=== PATIENT | male | born 1970 | race Caucasian/White ===

== ENCOUNTER → 2018-01-24 10:02 | Outpatient (CLI) | payer OTHER, SELFPAY ==
[2018-01-24 12:17] LABS: Absolute Lymphocyte Count 1.35 X10^3/ul (0.83-4.51); Absolute Neutrophil Count 4.7 X10^3/uL (2.0-7.7); Basophil# 0.02 X10^3/uL; Basophil% 0.3 % (0-1); Eosinophil# 0.16 X10^3/uL; Eosinophils% 2.3 % (0-5); Hematocrit 43.4 % (40-54); Hemoglobin 15.3 g/dl (13.0-16.5); Lymphocyte # 1.35 X10^3/ul (4.0); Lymphocyte % 19.8 % (19-41); Mean Corp Hgb Conc 35.3 g/gl (32-36); Mean Corpuscular Hgb 30.9 pg (27.0-32.0); Mean Corpuscular Volume 87.7 fL (80-94); Mean Platelet Vol. 9.4 fl (6.2-12.0); Monocyte% 8.8 % (0-10); Neutrophil # 4.67 X10^3/uL (2.7-7.7); Neutrophil % 68.5 % (47-70); Platelet Count 237 K/mm3 (150-450); Red Blood Count 4.95 M/mm3 (4.6-6.2); White Blood Count 6.8 K/mm3 (4.4-11.0)
[2018-01-24 12:20] LABS: POSITIVE COUNT NO; POSITIVE DIFFERENTIAL NO; POSITIVE MORPHOLOGY NO
[2018-01-24 12:28] LABS: ALB/GLOB Ratio 1.1 RATIO (0.9-2.4); AST(SGOT) 50 U/L (15-37); Alanine Aminotransfer ALT/SGPT 105 U/L (16-61); Albumin, Serum 3.6 g/dL (3.2-5.0); Alkaline Phosphatase 62 U/L (45-117); Anion Gap 9 (5-15); BUN 14 mg/dL (7-18); BUN/Creat Ratio 20.3 RATIO (10-20); Calcium,Total 8.6 mg/dL (8.5-10.1); Chloride 107 mmol/L (98-107); Cholesterol 148 mg/dL (200); Creatinine, Serum 0.69 mg/dL (0.70-1.30); EST Glomerular Filtration Rate 130 mL/min (>60); Est Glom Filt Rate - Afr Amer 158 mL/min (>60); Globulin 3.2 g/dL (2.2-4.2); Glucose 111 mg/dL (74-106); High Density Lipoprotein 34 mg/dL; Potassium 3.2 mmol/L (3.5-5.1); Protein, Total 6.8 g/dL (6.4-8.2); Sodium Level 141 mmol/L (136-145); Triglycerides 186 mg/dL; Very Low Density Lipoprotein 37 mg/dL (5-40)
[2018-01-24 12:29] LABS: Hemoglobin A1c 5.8 % (4.2-6.3)
== END ==
PROVIDERS: Visit Provider Family Medicine
DX: Z00.00 Encounter for general adult medical examination without abnormal findings (principal); R35.8 Other polyuria; H53.2 Diplopia; R73.01 Impaired fasting glucose
CPT/HCPCS: 36415; 80053; 80061; 83036; 85025

== ENCOUNTER 2019-02-24 11:30 | Emergency (ER) | payer OTHER, SELFPAY ==
[2019-02-24 11:31] VITALS: BP 158/72; PULSE 84; RESP 16; TEMP 36.1; O2SAT 98; BMI 44.4
--- NOTE | 2019-02-24 11:46 | RAD_ITS ---
STUDY: X-RAY CHEST REASON FOR EXAM: Male, 48 years old. Blurred vision. Back pain and neck pain. TECHNIQUE: PA and lateral views of the chest. COMPARISON: Comparison is made with prior study dated January 27, 2015. FINDINGS: The lungs are clear and expanded. There is no demonstrated pleural abnormality. Normal size heart. Normal mediastinum and sweetie. Normal visualized pulmonary arteries. Normal visualized aortic arch and descending thoracic aorta. Normal visualized thoracic spine. Normal visualized ribs, clavicles, and shoulders. There is no demonstrated abnormality of the visualized soft tissue structures of the upper abdomen. RAD/Chest PA and Lateral IMPRESSION: Normal x-ray examination of the chest. Electronically Signed: Maicol Ford, at 12:41 EDT , Service support ,
--- NOTE | 2019-02-24 11:47 | CT_ITS ---
STUDY: CT BRAIN WITHOUT CONTRAST REASON FOR EXAM: Male, 48 years old. 2 day history of blurred vision. RADIATION DOSAGE (If Supplied By Facility): CTDIvol = ( 44.99 ) mGy, DLP = ( 796.11 ) mGycm TECHNIQUE: Transaxial CT imaging of the brain was performed without administration of intravenous contrast material. Individualized dose optimization techniques were used for this CT. COMPARISON: No relevant priors. FINDINGS: Normal soft tissue structures. Normal calvarium. Normal size ventricles and extra-axial spaces for the patient's age. Normal white matter tracts of the cerebral hemispheres. Normal basal ganglia and thalami. Normal brainstem. Normal cerebellum. There is no intracranial hemorrhage. There are no findings of an acute ischemic infarction. Partial opacification of the ethmoid sinuses bilaterally. Mucosal thickening of the frontal sinus. CT/Brain/Head without Contrast IMPRESSION: No acute adenopathy is seen. Partial opacification of the ethmoid sinuses and the frontal sinus. Electronically Signed: Maicol Ford, at 12:40 EDT , Service support ,
--- NOTE | 2019-02-24 11:50 | ED.VISSUMM ---
- ER Visit Summary Date of Service: 02/24/19 Chief Complaint: Multiple chief complaints History of Present Illness: The patient is a 48 M who comes emergency department today with multiple complaints. First is that beginning this morning he notices that his vision gets blurry whenever he stares at an object. No diplopia. No recent eye exam. No eye pain. No watering of the eyes. While he is not staring at an object his vision is fine. His second complaint is that he has diffuse neck pain that began 4 days ago after waking up. Denies any known trauma to it. Describes it as generalized soreness worse with movement. His next complaint is that he has had some urinary frequency and was having pains over his kidney area on both sides which concerned him because his significant other recently had a urinary tract infection. He states that he has a history of testicular cancer but did not have to do any chemotherapy or radiation as it had not spread. Physical Examination: Afebrile vital signs are stable Gen: Well-nourished well-developed Head: Normocephalic atraumatic Eyes: Perrl EOMI ENT: TMs clear no rhinorrhea moist mucous membranes Neck: Supple no lymphadenopathy no JVD diffuse tenderness to palpation across the neck musculature CVS: Regular rate rhythm no murmurs normal S1-S2 Respiratory: No distress clear to auscultation bilaterally chest nontender Abdomen: Soft nontender nondistended normal bowel sounds no masses Back: Nontender specifically no CVA tenderness. Extremity: Nontender no edema Skin: Normal color no rash Neuro: alert orientated ?3 CN II-XII intact normal strength sensation reflexes gait cerebellar Psych: Normal affect normal mood Test Results: Head CT showed no acute changes. Chest x-ray did not see any obvious metastasis. CBC chemistries showed a glucose of 111. Liver enzymes with an ALT of 91 AST 59. Urinalysis showed no infection or hematuria. Emergency Department Course and Treatment: At this point I believe 1 the patient has a degree of torticollis. He woke with symptoms of a sore neck and is continued for several days. His blurred vision I feel can be assessed by ophthalmology. Do not see any elevated pressures, the eye is not red, head CT is negative. The urine shows no evidence of infection. Patient is comfortable with follow-up with primary care and ophthalmology. Impression: 1. Torticollis 2. Blurred vision This note was generated with Miyaobabei dictation software. It may contain incorrect words, spelling, and punctuation that were not noted in review of the chart prior to signing ED Disposition - Plan for ED Patient: Disposition: Home or Assisted Living Instructions: Torticollis ([place]) Referrals: Sherif Spann DO [Primary Care Provider] - 1 Week Luis Chand MD [STAFF PHYSICIAN] - (for opthamology)
[2019-02-24 12:19] LABS: Bacteria 0 SEEN /hpf (None Seen); Mucous, Urine 0 SEEN /hpf (<or=2+); Red Blood Cells-Urine 0 SEEN /hpf (0-5)
[2019-02-24 12:27] LABS: Absolute Lymphocyte Count 1.63 X10^3/ul (0.83-4.51); Absolute Neutrophil Count 4.1 X10^3/uL (2.0-7.7); Basophil# 0.02 X10^3/uL; Basophil% 0.3 % (0-1); Eosinophil# 0.17 X10^3/uL; Eosinophils% 2.7 % (0-5); Hematocrit 42.9 % (40-54); Lymphocyte # 1.63 X10^3/ul (4.0); Lymphocyte % 25.5 % (19-41); Mean Corpuscular Hgb 30.5 pg (27.0-32.0); Mean Corpuscular Volume 87.4 fL (80-94); Mean Platelet Vol. 8.9 fl (6.2-12.0); Monocyte# 0.46 X10^3/uL; Monocyte% 7.2 % (0-10); Neutrophil % 64.1 % (47-70); Platelet Count 223 K/mm3 (150-450); RBC Distribution Width CV 13.3 % (11.6-14.6); RBC Distribution Width SD 42.3 fl (35.1-43.9); Red Blood Count 4.91 M/mm3 (4.6-6.2); White Blood Count 6.4 K/mm3 (4.4-11.0)
[2019-02-24 12:33] LABS: Color, Urine Yellow (Yellow); Glucose, Dipstick Normal (Normal); Ketone-Dipstick Negative (Negative); Leukocyte Esterase-Dipstick Negative /ul (Negative); Nitrite-Dipstick Negative (Negative); Occult Blood-Urine Negative /ul (Negative); Protein-Dipstick Negative (Negative); Specific Gravity, Urine 1.015 (1.002-1.030); Urine Bilirubin Dipstick Negative (Negative); Urine Clarity Clear (Clear); Urine Urobilinogen 1 mg/dl (Normal)
[2019-02-24 12:34] LABS: POSITIVE COUNT NO; POSITIVE DIFFERENTIAL NO; POSITIVE MORPHOLOGY NO
[2019-02-24 12:37] LABS: Squamous Epithelial Cells - UA 0-5 SEEN /hpf (0-5); White Blood Cells 0-5 SEEN /hpf (0-5)
[2019-02-24 13:18] LABS: ALB/GLOB Ratio 1.1 RATIO (0.9-2.4); AST(SGOT) 59 U/L (15-37); Alanine Aminotransfer ALT/SGPT 91 U/L (16-61); Albumin, Serum 3.7 g/dL (3.2-5.0); Alkaline Phosphatase 64 U/L (45-117); Anion Gap 4 (5-15); BUN 17 mg/dL (7-18); BUN/Creat Ratio 19.7 RATIO (10-20); Calcium,Total 8.8 mg/dL (8.5-10.1); Chloride 108 mmol/L (98-107); Creatinine, Serum 0.86 mg/dL (0.70-1.30); EST Glomerular Filtration Rate 100 mL/min (>60); Est Glom Filt Rate - Afr Amer 121 mL/min (>60); Estimated Creatinine Clearance 94.79 ml/min; Globulin 3.4 g/dL (2.2-4.2); Glucose 111 mg/dL (74-106); Potassium 3.8 mmol/L (3.5-5.1); Protein, Total 7.1 g/dL (6.4-8.2); Sodium Level 142 mmol/L (136-145)
[2019-02-24 14:23] VITALS: BP 132/74; PULSE 75; RESP 16; O2SAT 98
== END 2019-02-24 14:23 | disposition home or self-care (01) ==
PROVIDERS: Emergency Provider Emergency Medicine; Family Provider Family Medicine; PCP Family Medicine
DX: M43.6 Torticollis (principal); H53.8 Other visual disturbances; J45.909 Unspecified asthma, uncomplicated; K21.9 Gastro-esophageal reflux disease without esophagitis; Z85.47 Personal history of malignant neoplasm of testis
CPT/HCPCS: 70450; 71046; 80053; 81001; 85025; 99284

== ENCOUNTER → 2019-03-10 | Outpatient (CLI) | payer OTHER, SELFPAY ==
[2019-02-24 11:31] VITALS: BMI 44.4
--- NOTE | 2019-03-10 14:31 | RAD_ITS ---
STUDY: X-RAY - CERVICAL SPINE REASON FOR EXAM: Male, 48 years old. Neck pain. No known injury. TECHNIQUE: 7 view(s) of the cervical spine were obtained. COMPARISON: None FINDINGS: Normal anterior atlantoaxial articulation. Normal odontoid process. Normal cervical lordosis. Normal vertebral bodies and endplates. There is minimal intervertebral disc space narrowing at C6-7 with small osteophytes. There is no significant anterior bony neural foraminal encroachment. There is diffuse uncovertebral and facet sclerosis. There is ossification of the ligamentum nuchae. RAD/Cerv Spine 4 or 5 Views IMPRESSION: Mild cervical spondylosis with no other abnormality. Electronically Signed: Devon Mullins MD at 15:40 EDT , Service support ,
--- NOTE | 2019-03-10 14:35 | RAD_ITS ---
HISTORY: NO KNOWN INJURY. PAIN IN LOWER BACK. COMPARISON: CT scan of the abdomen and pelvis from January 27, 2015 FINDINGS: # of images incl. paperwork: 5 XR Spine Lumbar Min 4 Views: Superimposed over the inferior pole of the right renal fossa, at the level of the right L3 transverse process, there is a 6 mm density, likely representing a nonobstructing nephrolith. On the 2014 study, there was an inferior pole right renal nephrolith, but it was smaller. Lumbar vertebral bodies are normal in height. Lumbar disc spaces are well maintained. No acute lumbar spine fracture or subluxation. Some facet arthropathy is present at the L3-L4, L4-L5, and L5-S1 levels. RAD/L/S Spine Min 4 Views IMPRESSION: No acute lumbar spine fracture or subluxation. 6 mm density superimposed over the inferior pole the right kidney, likely representing enlargement to a nonobstructing nephrolith which was present within the right kidney on the January 27, 2015 scan. at 0436 Reported and signed by: Michael Decker MD Electronically Signed: Michael Decker MD at 4:35 EDT Tel , Service support ,
== END | disposition home or self-care (01) ==
LOC: MTRAD 14:27
PROVIDERS: Family Provider Family Medicine; PCP Family Medicine; Referring Provider Family Medicine; Visit Provider Family Medicine
DX: M54.2 Cervicalgia (principal); M54.5 Low back pain
CPT/HCPCS: 72050; 72110

== ENCOUNTER → 2020-04-27 17:44 | Outpatient (CLI) | payer OTHER, SELFPAY | PROVIDERS: PCP Family Medicine; Referring Provider Family Medicine; Visit Provider Family Medicine | DX: R05 Cough (principal); R50.9 Fever, unspecified; R06.00 Dyspnea, unspecified; Z20.828 Contact with and (suspected) exposure to other viral communicable diseases | CPT/HCPCS: 87635; 94799; G2023; U0003 ==

== ENCOUNTER → 2020-08-02 12:04 | Outpatient (CLI) | payer OTHER, SELFPAY | PROVIDERS: PCP Family Medicine; Referring Provider Family Medicine; Visit Provider Family Medicine | DX: Z20.828 Contact with and (suspected) exposure to other viral communicable diseases (principal) | CPT/HCPCS: 87635; C9803; U0003 ==

== ENCOUNTER → 2021-06-29 07:28 | Outpatient (CLI) | payer OTHER, SELFPAY | PROVIDERS: PCP Family Medicine; Visit Provider Family Medicine | DX: Z20.828 Contact with and (suspected) exposure to other viral communicable diseases (principal) | CPT/HCPCS: 87635; U0005; U0003 ==

== ENCOUNTER → 2021-07-06 12:51 | Outpatient (CLI) | payer OTHER, SELFPAY ==
--- NOTE | 2021-07-06 12:58 | RAD_ITS ---
STUDY: X-RAY CHEST REASON FOR EXAM: Male, 51 years old. COUGH / SOB / ASTHMA TECHNIQUE: PA and lateral views of the chest. COMPARISON: Comparison is made with prior study dated 02/24/2019. FINDINGS: Stable elevation of the right hemidiaphragm. There is no demonstrated pleural abnormality. Normal size heart. Normal mediastinum and sweetie. Normal visualized pulmonary arteries. Normal visualized aortic arch and descending thoracic aorta. There are mild degenerative changes of the visualized thoracic spine. Normal visualized ribs, clavicles, and shoulders. There is no demonstrated abnormality of the visualized soft tissue structures of the upper abdomen. RAD/Chest PA and Lateral IMPRESSION: No acute abnormality is seen. Electronically Signed: Maicol Ford MD at 13:24 EDT , Service support ,
== END ==
LOC: RAD 12:53
PROVIDERS: PCP Family Medicine; Referring Provider Family Medicine; Visit Provider Family Medicine
DX: R05 Cough (principal)
CPT/HCPCS: 71046

== ENCOUNTER → 2021-08-15 18:04 | Outpatient (CLI) | payer OTHER, SELFPAY | PROVIDERS: PCP Family Medicine; Visit Provider Family Medicine | DX: R30.0 Dysuria (principal) | CPT/HCPCS: 87086; 87088 ==

== ENCOUNTER → 2021-08-30 12:17 | Outpatient (CLI) | payer OTHER, SELFPAY ==
--- NOTE | 2021-08-30 12:19 | CT_ITS ---
STUDY: CT ABDOMEN AND PELVIS WITHOUT CONTRAST REASON FOR EXAM: Male, 51 years old. Flank pain RADIATION DOSAGE (If Supplied By Facility): CTDIvol = ( 22.40 ) mGy, DLP = ( 2166.67 ) mGycm TECHNIQUE: Transaxial images were obtained from the dome of the diaphragm to the symphysis pubis without oral contrast, and without intravenous contrast. Sagittal and coronal images were reconstructed. Individualized dose optimization techniques were used for this CT. COMPARISON: 2014 FINDINGS: Abnormal lucency in the left hemithorax suggesting pneumothorax. No acute rib fracture, there is a sclerotic lesion within the left seventh rib, unchanged from 2015. The visualized portions of the heart are within normal limits. There is decreased attenuation of the liver consistent with steatosis. Normal gallbladder and extrahepatic biliary system. There are multiple benign calcified granulomata of the spleen. Normal pancreas. Normal bilateral adrenal glands. Nonobstructing stones noted in the right kidney. No obstructive uropathy or suspicious solid renal lesion. Incidental note is made of a retroaortic left renal vein Normal visualized stomach. Normal small intestine. There are multiple colonic diverticula consistent with diverticulosis. There is non-visualization of the appendix. Normal abdominal aorta. Normal inferior vena cava. Normal retroperitoneum. Normal urinary bladder. Normal abdominal wall. Normal osseous structures. CT/Abdomen/Pelvis without Cont IMPRESSION: Left pneumothorax. The technician telecommunication systems at [facility] was informed of the findings and there will be an effort to locate the patient and informed the referring physician Fatty liver, no discrete lesion Nonobstructing right nephrolithiasis Colonic diverticulosis Sclerotic lesion in the left rib unchanged from 2014 Electronically Signed: Connor Vences MD at 17:34 EST , Service support ,
== END ==
LOC: CT 12:18
PROVIDERS: PCP Family Medicine; Referring Provider Family Medicine; Visit Provider Family Medicine
DX: R10.9 Unspecified abdominal pain (principal); R30.0 Dysuria
CPT/HCPCS: 74176

== ENCOUNTER → 2021-09-06 12:39 | Outpatient (CLI) | payer OTHER, SELFPAY ==
--- NOTE | 2021-09-06 12:41 | RAD_ITS ---
STUDY: X-RAY CHEST REASON FOR EXAM: Male, 51 years old. Chest pain/pressure TECHNIQUE: PA and lateral views of the chest. COMPARISON: 07/06/2021 FINDINGS: The lungs are clear and expanded. There is no demonstrated pleural abnormality. Normal size heart. Normal mediastinum and sweetie. Normal visualized pulmonary arteries. Normal visualized aortic arch and descending thoracic aorta. There are diffuse degenerative changes of the visualized thoracic spine. Normal visualized ribs, clavicles, and shoulders. There is no demonstrated abnormality of the visualized soft tissue structures of the upper abdomen. RAD/Chest PA and Lateral IMPRESSION: No acute findings, no interval change Electronically Signed: Connor Vences MD at 13:50 EST , Service support ,
== END ==
LOC: RAD 12:40
PROVIDERS: PCP Family Medicine; Referring Provider Family Medicine; Visit Provider Family Medicine
DX: J93.9 Pneumothorax, unspecified (principal)
CPT/HCPCS: 71046

== ENCOUNTER 2021-10-25 18:05 | Outpatient (CLI) | payer OTHER, SELFPAY | END 2021-10-25 23:59 | disposition short-term general hospital (02) | PROVIDERS: PCP Family Medicine; Visit Provider Family Medicine | DX: U07.1 COVID-19 (principal) | CPT/HCPCS: 87635; U0003; U0005 ==

== ENCOUNTER 2021-10-28 11:28 | Outpatient (CLI) | payer OTHER, SELFPAY ==
[2021-10-28] MEDS: 0.9% Saline Lock 10 ML Syringe IV (11:37)
[2021-10-28 11:38] VITALS: BP 159/93; PULSE 86; RESP 20; TEMP 36.5; O2SAT 99; BMI 43.5
[2021-10-28 12:51] VITALS: BP 131/71; PULSE 75; RESP 18; TEMP 36.6; O2SAT 98
[2021-10-28 13:48] VITALS: BP 152/78; PULSE 81; RESP 18; TEMP 36.4; O2SAT 99
== END 2021-10-28 23:59 | disposition home or self-care (01) ==
LOC: MS3OUT 11:29 → MS3 11:29
PROVIDERS: PCP Family Medicine; Referring Provider Nurse Practitioner Adult Health; Visit Provider Nurse Practitioner Adult Health
DX: U07.1 COVID-19 (principal)
CPT/HCPCS: J7050; M0245; Q0245; A4216

== ENCOUNTER → 2022-08-21 | Outpatient (CLI) | payer OTHER, SELFPAY ==
[2022-08-21 18:24] LABS: Absolute Neutrophil Count 4.7 X10^3/uL (2.0-7.7); Basophil# 0.03 X10^3/uL; Basophil% 0.4 % (0-1); Eosinophil# 0.13 X10^3/uL; Eosinophils% 1.9 % (0-5); Hematocrit 45.6 % (40-54); Hemoglobin 15.6 g/dL (13.0-16.5); Lymphocyte % 20.4 % (19-41); Mean Corp Hgb Conc 34.2 g/dL (32-36); Mean Corpuscular Volume 90.5 fL (80-94); Mean Platelet Vol. 9.2 fl (6.2-12.0); Monocyte# 0.53 X10^3/uL; Monocyte% 7.7 % (0-10); NRBC Flagged by Analyzer 0 % (0-5); Neutrophil # 4.72 X10^3/uL (2.7-7.7); Platelet Count 251 K/mm3 (150-450); RBC Distribution Width CV 12.9 % (11.6-14.6); RBC Distribution Width SD 42.4 fl (35.1-43.9); Red Blood Count 5.04 M/mm3 (4.6-6.2); White Blood Count 6.9 K/mm3 (4.4-11.0)
[2022-08-21 18:57] LABS: ALB/GLOB Ratio 1.1 RATIO (0.9-2.4); AST(SGOT) 46 U/L (15-37); Alanine Aminotransfer ALT/SGPT 102 U/L (16-61); Albumin, Serum 3.6 g/dL (3.2-5.0); Alkaline Phosphatase 65 U/L (45-117); Anion Gap 8 (5-15); BUN 15 mg/dL (7-18); Calcium,Total 8.8 mg/dL (8.5-10.1); Chloride 107 mmol/L (98-107); Cholesterol 138 mg/dL (200); Creatinine, Serum 0.75 mg/dL (0.70-1.30); EST Glomerular Filtration Rate 116 mL/min (>60); Est Glom Filt Rate - Afr Amer 140 mL/min (>60); Globulin 3.3 g/dL (2.2-4.2); Glucose 102 mg/dL (74-106); Hemoglobin A1c 5.8 % (3.8-5.6); High Density Lipoprotein 43 mg/dL; PSA,Total - Annual Screen 1.68 ng/mL (0.00-4.00); Potassium 3.9 mmol/L (3.5-5.1); Protein, Total 6.9 g/dL (6.4-8.2); Sodium Level 141 mmol/L (136-145); Triglycerides 55 mg/dL; Troponin-I HS 4 pg/mL (3.0-78.0); Very Low Density Lipoprotein 11 mg/dL (5-40)
== END | disposition home or self-care (01) ==
LOC: BFHLAB 15:30
PROVIDERS: PCP Family Medicine; Visit Provider Family Medicine
DX: Z00.00 Encounter for general adult medical examination without abnormal findings (principal); R07.9 Chest pain, unspecified; Z12.5 Encounter for screening for malignant neoplasm of prostate; R73.01 Impaired fasting glucose
CPT/HCPCS: 36415; 80053; 80061; 83036; 84153; 84484; 85025; G0103

== ENCOUNTER → 2022-09-14 | Outpatient (CLI) | payer OTHER, SELFPAY ==
--- NOTE | 2022-09-14 15:43 | STRESSREP_ITS ---
Stress Test Report Date: 09/14/2022 Procedure: Exercise tolerance test Indications: Chest pain Consent: Per the patient Procedure: The patient exercised on a Xavier protocol for 1 minute and 14 seconds achieving a peak heart rate of 141 bpm (83% predicted maximal heart rate) with a peak blood pressure 190/78 mmHg and a peak MET capacity of approximately 4.6 MET's. The baseline ECG demonstrated normal sinus rhythm. The peak exercise ECG demonstrated no significant ischemic changes. [There were no cardiac dysrhythmias pretest, during exercise, or recovery]. The functional capacity was considered significantly decreased for age. The patient had no complaint of chest discomfort during exercise or recovery. The examination was discontinued secondary to dyspnea and patient being unable to keep up with the treadmill. Impression: 1. Sensitivity of this test is decreased due to inability to reach 85% of maximal age-predicted heart rate 2. Stress test is negative for exercise-induced chest pain. 3. Stress test test is negative for exercise-induced EKG changes of ischemia. 4. Functional capacity is significantly decreased for age This note was generated with Gradible (formerly gradsavers)ation software. It may contain incorrect words, spelling, and punctuation that were not noted in checking the note before signing.
== END | disposition home or self-care (01) ==
LOC: CVS 12:19
PROVIDERS: PCP Family Medicine; Referring Provider Family Medicine; Visit Provider Family Medicine
DX: R07.9 Chest pain, unspecified (principal)
CPT/HCPCS: 93017

== ENCOUNTER 2024-05-09 10:19 | Emergency (ER) | payer OTHER, SELFPAY ==
[2024-05-09 10:20] VITALS: BP 199/90; PULSE 91; RESP 18; TEMP 35.9; O2SAT 97; BMI 42.6
--- NOTE | 2024-05-09 10:56 | EDS_ITS ---
HPI History of Present Illness Chief Complaint: GI Bleed [facility] Medical History no medical history Home Medications ?Medication ?Instructions ?Recorded ?Last Taken ?Type Omeprazole [Prilosec] 40 mg PO DAILY 01/18/15 Unknown History albuterol sulfate 90 mcg/actuation 1 puff inhalation Q6H PRN PRN Sob 01/18/15 Unknown History aerosol inhaler (Ventolin HFA) &/Or Wheezing albuterol sulfate 2.5 mg/0.5 mL 2.5 mg inhalation Q20M 10/28/21 Unknown History solution for nebulization dexamethasone 6 mg tablet 6 mg PO DAILY 10/28/21 Unknown History fluticasone 100 mcg-salmeterol 50 1 inh inhalation BID 10/28/21 Unknown History mcg/dose blistr powdr for inhalation (Advair Diskus) Allergy/AdvReac Type Severity Reaction Status Date / Time Penicillins Allergy Unknown Verified 05/09/24 10:19 Sulfa (Sulfonamide Allergy Unknown Verified 05/09/24 10:19 Antibiotics) Family History no significant family his Surgical History no surgical history Social History Smoking Status: Never smoker EXAM Physical Exam Const Vital Signs: 05/09/24 10:20 05/09/24 12:41 Temperature 96.7 F L Temperature Source Temporal Pulse Rate 91 Respiratory Rate 18 Blood Pressure 199/90 H 160/68 H Blood Pressure Mean 126 98 Pulse Ox 97 Oxygen Delivery Method Room Air MDM MDM MDM Narrative Medical decision making narrative: HISTORY OF PRESENT ILLNESS: 54-year-old male presents with concern for GI bleed. Notes 1 day of left lower abdominal pain and bright red blood per rectum. Notes similar event happened to him 10 years ago in which she required blood transfusion. Denies taking blood thinners. Denies history abdominal surgery. Notes nausea but no vomiting. Last bowel movement this morning. No diarrhea. No fever. REVIEW OF SYSTEMS: Pertinent positives: Abdominal pain, bright red blood per rectum Pertinent negatives: Syncope, PHYSICAL EXAM: Nursing triage notes reviewed, Vital signs reviewed Constitutional: please see mdm HENT: MMM Eyes: Pupils equal round and reactive to light, Extraocular muscles intact Neck: No stridor, no JVD, full neck ROM Lungs: Clear to auscultation, No wheezing or rales. No increased work of breathing, no conversational dyspnea, no accessory muscle use, no nasal flaring. No respiratory distress noted Heart: Regular rate and rhythm, No murmurs, No rubs and No gallops, 2+ distal pulses (radial, femoral, posterior tibial) in all extremities Abdomen: Soft, there is no tenderness, rigidity, rebound or guarding, no obvious peritoneal signs, no palpable pulsatile abdominal masses, no auscultated abdominal bruit : No CVAT Rectal: Performed cnc mill set up operator Nicholas RN present showed hemorrhoids are nonthrombosed and nonbleeding, active bright red blood noted in the rectum. Occult blood sample sent for documentation purposes Extremities: No edema Neuro: No focal neurological deficits, cranial nerves II through XII intact, 5/5 strength in all extremities. Intact sensation to light touch in all extremities, 2+ reflexes bilateral patella tendons. Normal gait. No ataxia. Skin: No rash or lesions noted MEDICAL DECISION MAKING: Chief Complaint: Abdominal pain, bright red blood per rectum External records reviewed: Imaging reviewed: CT scan from 2020 shows fatty liver, nonobstructing right nephrolithiasis, colonic diverticulosis Factors affecting care: History of GI bleed Social determinants of health: none History obtained from others: none Consults: none MDM Narrative: Patient was initially hypertensive otherwise afebrile and nontoxic-appearing. Rectal exam with hemorrhoids and not to be actively bleeding or thrombosed, noted bright red blood per rectum. Abdomen soft without peritoneal signs. The patient is not distended. I considered the following differential diagnosis: Anemia, GI bleed, perforated peptic ulcer, diverticulitis, intra-abdominal mass, inflammatory bowel disease, I obtained a broad lab and imaging workup to further elucidate etiology of patient complaint specifically obtained a CT scan rule out perforation, obstruction, inflammatory issue such as abscess, diverticulitis. Obtain labs rule out significant anemia. ALL IMAGES (IF OBTAINED) HAVE BEEN PERSONALLY REVIEWED AND INTERPRETED BY MYSELF. EKG with normal sinus rhythm, normal axis, normal intervals, no STEMI CBC without leukocytosis, severe anemia, no thrombocytopenia. BMP without evidence of significant electrolyte abnormalities, no anion gap, no acute kidney injury. LFTs with mild elevation in transaminitis but no evidence of obvious hepatobiliary obstruction Lipase is wnl indicating no pancreatic inflammation. Urinalysis shows no evidence of urinary inflammation suggestive of UTI CT scan shows diverticulosis but no diverticulitis or signs of active extravasation or bleeding The synthesis of the patient's history, physical exam, labs images suggest likely lower GI bleed may be from hemorrhoids or other source that is not apparent at this time patient will need colonoscopy. His blood counts are stable he is on blood thinners he is hemodynamically stable otherwise and actual ly has elevated blood pressure at the lower blood pressure. There is no indication for hospitalization or emergent or urgent GI consultation at this time he was given outpatient GI follow-up. He was also provided with strict return precautions The patient and/or family, caregivers express understanding. The patient and/or family, caregivers agrees with the plan. Shared decision making: I will have a discussion with the patient and or visitors regarding risk/benefits of further testing or admission. They will be made aware of of the risk/benefits inherent in this decision they will be given the opportunity to voice understanding. Total critical care time today provided was at least 0 minutes. This excludes separately billable procedures. Critical care time (if documented) is secondary to the patient having high probability of clinically significant/life threatening deterioration in the patient's condition which required my urgent intervention. Impression: 1. Abdominal pain 2. History of diverticulosis 3. Lower GI bleed 4. Elevated liver enzymes Dispo: Discharge home This note was generated with NeuroQuest dictation software. It may contain incorrect words, spelling, and punctuation that were not noted in review of the chart prior to signing. Lab Data Labs: Laboratory Results - last 24 hr 05/09/24 05/09/24 05/09/24 11:25 11:25 11:50 WBC Cancelled Corrected WBC Cancelled RBC Cancelled Hgb Cancelled Hct Cancelled MCV Cancelled MCH Cancelled MCHC Cancelled RDW Std Deviation Cancelled RDW Coeff of Dany Cancelled Plt Count Cancelled MPV Cancelled Immature Gran % (Auto) Cancelled Neut % (Auto) Cancelled Lymph % (Auto) Cancelled Wagoner % (Auto) Cancelled Eos % (Auto) Cancelled Baso % (Auto) Cancelled Absolute Neuts (auto) Cancelled Absolute Lymphs (auto) Cancelled Total Counted Cancelled Neutrophils % (Manual) Cancelled Band Neutrophils % Cancelled Lymphocytes % (Manual) Cancelled Monocytes % (Manual) Cancelled Eosinophils % (Manual) Cancelled Basophils % (Manual) Cancelled Metamyelocytes % Cancelled Myelocytes % Cancelled Promyelocytes % Cancelled Blast Cells % Cancelled Plasma Cell % (Manual) Cancelled Other Cells % Cancelled Nucleated RBC % Cancelled Nucleated RBCs/100 WBC Cancelled Differential Comment Cancelled Diff Path Review Cancelled Hypersegmented Neuts Cancelled Atypical Lymphocytes Cancelled Reactive Lymphocytes Cancelled Smudge Cells Cancelled Toxic Granulation Cancelled Toxic Vacuolation Cancelled Dohle Bodies Cancelled Joaquim Rods Cancelled Platelet Estimate Cancelled Plt Morphology Comment Cancelled RBC Morphology Cancelled Cancelled Polychromasia Cancelled Hypochromasia Cancelled Basophilic Stippling Cancelled Anisocytosis Cancelled Microcytosis Cancelled Macrocytosis Cancelled Spherocytes Cancelled Sickle Cells Cancelled Target Cells Cancelled Tear Drop Cells Cancelled Ovalocytes Cancelled Stomatocytes Cancelled [place] Bodies Cancelled Stacia Cells Cancelled Bite Cells Cancelled Crenated Cell Cancelled Acanthocytes (Spur) Cancelled Rouleaux Cancelled Schistocytes Cancelled Sodium 139 Potassium 4.3 Chloride 109 H Carbon Dioxide 26.0 Anion Gap 4 L BUN 13 Creatinine 0.77 Estim Creat Clear Calc 133.68 Est GFR (MDRD) Af Amer 136 Est GFR (MDRD) Non-Af 113 BUN/Creatinine Ratio 17.0 Glucose 124 H Calcium 8.9 Total Bilirubin 0.60 Direct Bilirubin 0.09 AST 74 H ALT 106 H Alkaline Phosphatase 72 Troponin I High Sens 5 Total Protein 7.1 Albumin 3.3 Globulin 3.8 Lipase 20 Urine Color Yellow Urine Clarity Clear Urine pH 6.0 Ur Specific [place] 1.020 Urine Protein Negative Urine Glucose (UA) Normal Urine Ketones Negative Urine Occult Blood Negative Urine Nitrite Negative Urine Bilirubin Negative Urine Urobilinogen Normal Ur Leukocyte Esterase Negative Urine RBC 0 SEEN Urine WBC 0 SEEN Ur Squamous Epith Cells 0 SEEN Urine Bacteria 0 SEEN Urine Mucus 0 SEEN 05/09/24 12:10 WBC 6.8 Corrected WBC RBC 4.68 Hgb 14.0 Hct 41.7 MCV 89.1 MCH 29.9 MCHC 33.6 RDW Std Deviation 41.4 RDW Coeff of Dany 12.9 Plt Count 216 MPV 8.7 Immature Gran % (Auto) 0.300 Neut % (Auto) 73.6 H Lymph % (Auto) 16.3 L Wagoner % (Auto) 8.1 Eos % (Auto) 1.3 Baso % (Auto) 0.4 Absolute Neuts (auto) 5.0 Absolute Lymphs (auto) 1.11 Total Counted Neutrophils % (Manual) Band Neutrophils % Lymphocytes % (Manual) Monocytes % (Manual) Eosinophils % (Manual) Basophils % (Manual) Metamyelocytes % Myelocytes % Promyelocytes % Blast Cells % Plasma Cell % (Manual) Other Cells % Nucleated RBC % 0 Nucleated RBCs/100 WBC Differential Comment Diff Path Review Hypersegmented Neuts Atypical Lymphocytes Reactive Lymphocytes Smudge Cells Toxic Granulation Toxic Vacuolation Dohle Bodies Joaquim Rods Platelet Estimate Plt Morphology Comment RBC Morphology Polychromasia Hypochromasia Basophilic Stippling Anisocytosis Microcytosis Macrocytosis Spherocytes Sickle Cells Target Cells Tear Drop Cells Ovalocytes Stomatocytes [place] Bodies Crapo Cells Bite Cells Crenated Cell Acanthocytes (Spur) Rouleaux Schistocytes Sodium Potassium Chloride Carbon Dioxide Anion Gap BUN Creatinine Estim Creat Clear Calc Est GFR (MDRD) Af Amer Est GFR (MDRD) Non-Af BUN/Creatinine Ratio Glucose Calcium Total Bilirubin Direct Bilirubin AST ALT Alkaline Phosphatase Troponin I High Sens Total Protein Albumin Globulin Lipase Urine Color Urine Clarity Urine pH Ur Specific [place] Urine Protein Urine Glucose (UA) Urine Ketones Urine Occult Blood Urine Nitrite Urine Bilirubin Urine Urobilinogen Ur Leukocyte Esterase Urine RBC Urine WBC Ur Squamous Epith Cells Urine Bacteria Urine Mucus Radiography Diagnostic Testing: Clinical Impression(s) from Imaging Studies Abdomen/Pelvis CT 05/09/24 11:41 IMPRESSION: Fatty infiltration of the liver. Calcified splenic granulomas. Sigmoid diverticulosis without evidence of diverticulitis. Nonobstructive right intrarenal calculus. Electronically Signed: Maicol Ford MD at 12:45 EDT Reading Location ID and State: [address] [place] [address] , Service support , Discharge Plan Triage Chief Complaint: GI Bleed ED Provider: Destin Rosenberg Dx/Rx/DC Orders Prescriptions: No Action albuterol sulfate [Ventolin HFA] 1 INHALER inhaler 1 puff inhalation Q6H PRN PRN (Reason: Sob &/Or Wheezing) Omeprazole [Prilosec] 40 MG capsule 40 mg PO DAILY dexamethasone 6 mg Tablet 6 mg PO DAILY fluticasone propion-salmeterol [Advair Diskus] 100-50 mcg/dose Blister With Device 1 inh INHALATION BID albuterol sulfate 2.5 mg/0.5 mL Solution For Nebulization 2.5 mg INHALATION Q20M Primary Care Provider: Sherif Spann Referrals: Sherif Spann [[facility]] - Print Language: Tajik
--- NOTE | 2024-05-09 11:41 | EKG12_ITS ---
Test Reason : GI BLEED Blood Pressure : / mmHG Vent. Rate : 084 BPM Atrial Rate : 084 BPM P-R Int : 188 ms QRS Dur : 094 ms QT Int : 360 ms P-R-T Axes : 047 014 074 degrees QTc Int : 425 ms Normal sinus rhythm Normal ECG Confirmed by Alden Beckett ([id number]), editorial director KENRICK MACK ([id number]) on 05/12/2024 2:02:45 PM Referred By: CELINE Confirmed By:Alden Beckett
--- NOTE | 2024-05-09 11:41 | CT_ITS ---
STUDY: CT ABDOMEN AND PELVIS WITH CONTRAST REASON FOR EXAM: Male, 54 years old. Left lower quadrant abdominal pain, bright red blood. History of testicular cancer. RADIATION DOSAGE (If Supplied By Facility): CTDIvol = ( 17.08 ) mGy, DLP = ( 1250.84 ) mGycm TECHNIQUE: Transaxial images were obtained from the dome of the diaphragm to the symphysis pubis without oral contrast. IV 100mL Isovue-370 was administered. Sagittal and coronal images were reconstructed. Individualized dose optimization techniques were used for this CT. COMPARISON: Comparison is made with prior study dated August 30, 2021. FINDINGS: The visualized lung bases are unremarkable. The visualized portions of the heart are within normal limits. There is decreased attenuation of the liver consistent with steatosis. Normal gallbladder and extrahepatic biliary system. There are multiple benign calcified granulomata of the spleen. Normal pancreas. Normal bilateral adrenal glands. Nonobstructive calculi are seen in the lower pole calyx of the right kidney. The larger calculus measures 7.6 mm. Normal left kidney. Incidental note is made of a left retroaortic renal vein. Normal visualized stomach. Normal small intestine. There are multiple colonic diverticula consistent with diverticulosis. There are surgical clips in the region of the appendix consistent with a prior appendectomy. Normal abdominal aorta. Normal inferior vena cava. Normal retroperitoneum. Normal urinary bladder. There is a small umbilical hernia containing fat. There are degenerative changes of the visualized lumbar spine. CT/Abdomen/Pelvis W IV Cont ONLY IMPRESSION: Fatty infiltration of the liver. Calcified splenic granulomas. Sigmoid diverticulosis without evidence of diverticulitis. Nonobstructive right intrarenal calculus. Electronically Signed: Maicol Ford MD at 12:45 EDT ,
[2024-05-09] MEDS: Ondansetron 4 MG/2 ML Vial IV (11:51)
[2024-05-09] MEDS: Morphine 4 MG/ML Syringe IV (11:51)
[2024-05-09] MEDS: 0.9% Normal Saline (1000mL) 1,000 ML 999 ML IV (11:52)
[2024-05-09 11:57] LABS: Bacteria 0 SEEN /hpf (None Seen); Mucous, Urine 0 SEEN /hpf (<or=2+); Red Blood Cells-Urine 0 SEEN /hpf (0-5); Squamous Epithelial Cells - UA 0 SEEN /hpf (0-5); White Blood Cells 0 SEEN /hpf (0-5)
[2024-05-09 12:01] LABS: Color, Urine Yellow (Yellow); Glucose, Dipstick Normal (Normal); Ketone-Dipstick Negative (Negative); Leukocyte Esterase-Dipstick Negative /ul (Negative); Nitrite-Dipstick Negative (Negative); Occult Blood-Urine Negative /ul (Negative); Protein-Dipstick Negative (Negative); Urine Bilirubin Dipstick Negative (Negative); Urine Clarity Clear (Clear); Urine Urobilinogen Normal (Normal)
[2024-05-09 12:15] LABS: AST(SGOT) 74 U/L (15-37); Alanine Aminotransfer ALT/SGPT 106 U/L (16-61); Albumin, Serum 3.3 g/dL (3.2-5.0); Alkaline Phosphatase 72 U/L (45-117); Anion Gap 4 (5-15); BUN 13 mg/dL (7-18); Bilirubin, Direct 0.09 mg/dL (0.00-0.30); Calcium,Total 8.9 mg/dL (8.5-10.1); Chloride 109 mmol/L (98-107); Creatinine, Serum 0.77 mg/dL (0.70-1.30); EST Glomerular Filtration Rate 113 mL/min (>60); Est Glom Filt Rate - Afr Amer 136 mL/min (>60); Estimated Creatinine Clearance 133.68 ml/min; Globulin 3.8 g/dL (2.2-4.2); Glucose 124 mg/dL (74-106); Lipase 20 U/L (13-75); Potassium 4.3 mmol/L (3.5-5.1); Protein, Total 7.1 g/dL (6.4-8.2); Sodium Level 139 mmol/L (136-145); Troponin-I HS 5 pg/mL (3.0-78.0)
[2024-05-09 12:19] LABS: Absolute Lymphocyte Count 1.11 X10^3/uL (0.83-4.51); Basophil# 0.03 X10^3/uL; Basophil% 0.4 % (0-1); Eosinophil# 0.09 X10^3/uL; Eosinophils% 1.3 % (0-5); Hematocrit 41.7 % (40-54); Lymphocyte # 1.11 X10^3/ul (0.83-4.51); Lymphocyte % 16.3 % (19-41); Mean Corp Hgb Conc 33.6 g/dL (32-36); Mean Corpuscular Hgb 29.9 pg (27.0-32.0); Mean Corpuscular Volume 89.1 fL (80-94); Mean Platelet Vol. 8.7 fl (6.2-12.0); Monocyte# 0.55 X10^3/uL; Monocyte% 8.1 % (0-10); NRBC Flagged by Analyzer 0 % (0-5); Neutrophil # 5.01 X10^3/uL (2.7-7.7); Neutrophil % 73.6 % (47-70); Platelet Count 216 K/mm3 (150-450); RBC Distribution Width CV 12.9 % (11.6-14.6); RBC Distribution Width SD 41.4 fl (35.1-43.9); Red Blood Count 4.68 M/mm3 (4.6-6.2); White Blood Count 6.8 K/mm3 (4.4-11.0)
[2024-05-09 12:41] VITALS: BP 160/68
[2024-05-09 13:24] VITALS: BP 151/72; PULSE 89; RESP 16; TEMP 36.4; O2SAT 100
== END 2024-05-09 13:27 | disposition home or self-care (01) ==
PROVIDERS: Emergency Provider Emergency Medicine; PCP Family Medicine; Visit Provider Emergency Medicine
DX: K92.2 Gastrointestinal hemorrhage, unspecified (principal); R11.0 Nausea; K57.30 Diverticulosis of large intestine without perforation or abscess without bleeding; K76.0 Fatty (change of) liver, not elsewhere classified; N20.0 Calculus of kidney; K64.9 Unspecified hemorrhoids; R10.9 Unspecified abdominal pain; R74.8 Abnormal levels of other serum enzymes
CPT/HCPCS: 74177; 80048; 80076; 81001; 82274; 83690; 84484; 85025; 93005; 96361; 96374; 96375; 99282; J7030; Q9967; A4216; J2405

== ENCOUNTER → 2024-05-19 | Outpatient (CLI) | payer OTHER, SELFPAY ==
[2024-05-19 10:01] LABS: Basophil# 0.02 X10^3/uL; Basophil% 0.3 % (0-1); Eosinophil# 0.13 X10^3/uL; Eosinophils% 2.2 % (0-5); Hematocrit 43.4 % (40-54); Hemoglobin 14.4 g/dL (13.0-16.5); Lymphocyte % 21.5 % (19-41); Mean Corp Hgb Conc 33.2 g/dL (32-36); Mean Corpuscular Hgb 29.6 pg (27.0-32.0); Mean Corpuscular Volume 89.1 fL (80-94); Mean Platelet Vol. 9.1 fl (6.2-12.0); Monocyte# 0.55 X10^3/uL; Monocyte% 9.1 % (0-10); NRBC Flagged by Analyzer 0 % (0-5); Neutrophil # 4.02 X10^3/uL (2.7-7.7); Neutrophil % 66.6 % (47-70); Platelet Count 221 K/mm3 (150-450); RBC Distribution Width CV 12.8 % (11.6-14.6); RBC Distribution Width SD 41.5 fl (35.1-43.9); Red Blood Count 4.87 M/mm3 (4.6-6.2)
[2024-05-19 10:32] LABS: Iron 84 ug/dL (65-175); Iron Binding Capacity,Total 331 ug/dL (250-450); PERCENT IRON SATURATION 25.4 % (15.0-55.0)
== END | disposition home or self-care (01) ==
PROVIDERS: PCP Family Medicine; Referring Provider Student in an Organized Health Care Education/Training Program; Visit Provider Student in an Organized Health Care Education/Training Program
DX: K62.5 Hemorrhage of anus and rectum (principal)
CPT/HCPCS: 36415; 83540; 83550; 85025

== ENCOUNTER → 2024-05-29 | Outpatient (CLI) | payer OTHER, SELFPAY ==
--- NOTE | 2024-05-29 08:47 | US_ITS ---
STUDY: ABDOMINAL ULTRASOUND - RIGHT UPPER QUADRANT; ELASTOGRAPHY REASON FOR VISIT: Male, 54 years old. Fatty infiltration of the liver. TECHNIQUE: Ultrasound evaluation of the right upper quadrant was performed with real-time and static brumfield-scale imaging. Point quantification shear wave elastography was performed ([email or web address]). TECHNICAL QUALITY: Adequate. COMPARISON: None. FINDINGS: Liver: The liver is enlarged measures 22.9 cm. There is increased echogenicity consistent with fatty infiltration. The bile ducts are within normal limits. There is hepatic color flow. The direction of portal flow is hepatopetal. There is no demonstrated mass lesion. Median liver stiffness measured 4.7 kPa. Gallbladder: Normal distended gallbladder. The gallbladder wall measures 3 mm. There is a negative sonographic Yanes''s sign. There is no pericholecystic fluid. There are no gallstones. Common Bile Duct (C.B.D.): The common bile duct measures 3 mm. Pancreas: There is normal echogenicity of the visualized pancreas. There is no demonstrated pancreatic mass or cyst. Right Kidney: Normal size of the right kidney. The right kidney measures 13.6 cm x 6 cm x 4.6 cm. Normal renal cortex. The right cortex measures 1.5 cm. There is no demonstrated renal mass or cyst. There is no right hydronephrosis. There is a 5 mm The calculus in the lower pole calyx of the kidney. US/ABD Limited w/ Elastography IMPRESSION: 1. Liver stiffness measures 4.7 kPa compatible with F0-F1 (Normal to mild liver fibrosis) Metavir score. Electronically Signed: Maicol Ford MD at 13:02 EDT ,
== END | disposition home or self-care (01) ==
LOC: US 08:45
PROVIDERS: PCP Family Medicine; Referring Provider Student in an Organized Health Care Education/Training Program; Visit Provider Student in an Organized Health Care Education/Training Program
DX: K76.0 Fatty (change of) liver, not elsewhere classified (principal)
CPT/HCPCS: 76705; 76981

== ENCOUNTER 2024-06-17 12:11 | Day surgery (SDC) | payer OTHER, SELFPAY ==
[2024-06-17] VITALS (9 sets, daily range): BP systolic 105–159; BP diastolic 63–85; PULSE 76–89; RESP 16; TEMP 36.2–36.8; O2SAT 92–98; BMI 44.4
--- NOTE | 2024-06-17 | IMM_PTH ---
PATIENT: TREASURE LEE LOC: [facility] U#:[id number] AGE/SX: 54/M ROOM: RE06/17/[address]: Dr. Juaquin Ramos DO : 1970 BED: DIS: 06/17/2024 SPEC #: [id number] RECD: 06/19/24 10:33 STATUS: TORY REQ #: [id number] KEN: 06/17/24 00:[address]: Juaquin Ramos DEPT: IMMUNOHISTOCHEMISTRY RECD BY: Jeronimo Matt ENTERED: 06/19/24 10:33 SP TYPE: IMMUNO OTHR DR: Dr. Sherif Spann DO Tissues: B - POLYP Procedures: H Pylori (initial) PHYSICIAN & INSTITUTION [place] [id number] SPECIMEN INFORMATION: Tissue Source: B- Gastric polyp Clinical Info: rectal hemorrhage, fatty liver, not elsewhere classified Specimen Number: [id number] CPT code: 97557 METHODOLOGY: Deparaffinized sections of prefer/formalin-fixed tissue or PAP/DQ stained slides are incubated with monoclonal/polyclonal antibodies/oligonucleotide probes. Localization is made via biotin free immunoperoxidase method. Appropriate controls are performed and reacted as expected. Results on target cell population are indicated in the following table: RESULTS: ANTIBODY / CLONE RESULT Block B H Pylori (polyclonal) negative These tests were developed and their performance characteristics determined by [facility]. They may not have been cleared or approved by the U.S. Food and Drug Administration. The FDA has determined that such clearance or approval is not necessary. The above immunohistochemical/dualISH markers are ordered and reviewed by the Pathologist. INTERPRETATION: B. Gastric polyp, biopsy: Negative for Helicobacter pylori organisms. RERE/ 06/20/2024
[2024-06-17] MEDS: Lactated Ringers 1,000 ML 15 ML IV (12:45)
--- NOTE | 2024-06-17 13:04 | PCM.PRE.AN2 ---
ASA Classification* ASA Classification ASA Classification: 3 Assessment & Plan Anesthesia* Anesthesia Assessment Anesthesia Assessment: Discussed sedation and/or anesthesia options, risks, benefits, and alternatives with patient/parents/legal guardian/POA. Questions invited. The patient/parents/legal guardian/POA seems to understand and agrees to proceed with anesthesia plan. Reviewed the physical assessment, medical history, allergy history and patient home medications list prior to surgery/procedure/anesthetic and documented any changes. Performed airway and anesthesia risk assessments. Anesthesia Type Anesthesia Type: MAC History Source History Obtained from:: Patient and Chart Anesthesia Focused Assessment* Temperature: 97.4 F Pulse Rate: 89 Blood Pressure: 159/85 Respiratory Rate: 16 Pulse Ox: 98 Oxygen Delivery Method: Room Air Airway Assessment Mouth opens: >3 cm Mallampati Score: IV Teeth Condition: Missing (Patient has multiple missing teeth.) Neck Range of motion (ROM): Limited ROM (Decreased extension.) Comment: Patient has a full bowles Focused Labs Anesthesia Preop lab: CBC WBC 6.0 K/mm3 (4.4-11.0) 05/19/24 09:38 RBC 4.87 M/mm3 (4.6-6.2) 05/19/24 09:38 Hgb 14.4 g/dL (13.0-16.5) 05/19/24 09:38 Hct 43.4 % (40-54) 05/19/24 09:38 Plt Count 221 K/mm3 (150-450) 05/19/24 09:38 CHEMISTRY Potassium 4.3 mmol/L (3.5-5.1) 05/09/24 11:25 Sodium 139 mmol/L (136-145) 05/09/24 11:25 BUN 13 mg/dL (7-18) 05/09/24 11:25 Creatinine 0.77 mg/dL (0.70-1.30) 05/09/24 11:25 Glucose 124 mg/dL (74-106) H 05/09/24 11:25 COAG Pre-Assessment Diagnosis/Proposed Procedure Planned Operative Procedure(s): COLONOSCOPY,EGD Anesthesia History Anesthesia History - gse mechanic: 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 When Was Last Pacemaker Check QUESTION #4 FULL TEXT: You/Your Family Experience fever (hyperthermia) with Anesthesia Last Oral Intake Last Oral intake: Last Oral Intake NPO since 23:00 06/17/24 12:46 Meds taken in AM with sips of Yes 06/17/24 12:46 water? Meds patient instructed to omeprazole 06/17/24 12:46 take am of surgery Any additional information?: Yes NPO since: 08:00 (Patient finished prep at 8 AM.) PONV PONV - gse mechanic: PONV - gse mechanic Female No 06/12/24 10:57 HX of Motion Sickness No 06/12/24 10:57 HX of N/V After Surgery No 06/12/24 10:57 Non-Smoker Yes 06/12/24 10:57 Duration of Surgery greater No 06/12/24 10:57 than 60 minutes Number of Risk Factors 1 06/12/24 10:57 PONV Score Low Risk 06/12/24 10:57 Height & Weight Height & Weight: Anesthesia: Height & Weight Height 5 ft 6 in 06/17/24 12:46 Weight: 124.9 kg 06/17/24 12:46 Body Mass Index (BMI) 44.4 06/17/24 12:46 Respiratory Assessment Respiratory Assessment - gse mechanic: Respiratory Tract Infection Hx - gse mechanic Hx Respiratory Tract Infection No 06/12/24 10:57 STOP Sleep Apnea STOP Sleep Apnea - gse mechanic: STOP Sleep Apnea - gse mechanic Hx Hypertension No 06/12/24 10:57 Hx Sleep Apnea Yes 06/12/24 10:57 CPAP No: PT DOESN'T WEAR 06/12/24 10:57 BIPAP No 06/12/24 10:57 Do you snore loudly (louder than talking or can be heard Do you often feel tired/ fatigued/ sleepy during daytime? Has anyone observed you stop breathing during sleep? STOP Results Positive 06/12/24 10:57 QUESTION #5 FULL TEXT : Do you snore loudly (louder than talking or can be heard through closed doors)? 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 Specify any problems Hx of Preganancy in last 3 N/A 06/12/24 10:57 Months Nurse Filling Out Transfusion [email or web address] 06/12/24 10:57 & Questions: Date: 06/12/24 06/12/24 10:57 Time: 10:59 06/12/24 10:57 Patient unable to answer at this time (ie. confused, unrespo /Reproduction History /Reproductive History - gse mechanic: /Reproductive Hx- gse mechanic Hx Now Gestational Age (in weeks): EDC: Hx Hx Para Hx Section SAB Active Medications Active Medications: Current Medications Generic Name Dose Route Start Last Admin Trade Name Freq PRN Reason Stop Dose Admin Lactated Ringer's 1,000 mls @ 15 mls/hr 06/17/24 12:30 06/17/24 12:45 IV 15 mls/hr .Q48H VLAD Administration PFSH Medical History Cancer Fatty liver Heartburn Non-smoker History of stress test Home Medications ?Medication ?Instructions ?Recorded ?Last Taken ?Type albuterol sulfate 90 mcg/actuation 1 puff inhalation Q6H PRN PRN Sob 01/18/15 Unknown History aerosol inhaler (Ventolin HFA) &/Or Wheezing albuterol sulfate 2.5 mg/0.5 mL 2.5 mg inhalation Q20M 10/28/21 Unknown History solution for nebulization omeprazole 20 mg capsule,delayed 40 mg PO DAILY 06/17/24 06/17/24 History release Allergy/AdvReac Type Severity Reaction Status Date / Time Penicillins Allergy Unknown Verified 06/17/24 12:39 Sulfa (Sulfonamide Allergy Unknown Verified 06/17/24 12:39 Antibiotics) Surgical History H/O removal of testicle History of tonsillectomy Social History Smoking Status: Never smoker Review of Systems (Anesthesia) ROS Narrative System reviewed and no additional complaints, except as documented.
--- NOTE | 2024-06-17 13:30 | COLBX_PTH ---
PATIENT: TREASURE LEE LOC: [facility] U#:[id number] AGE/SX: 54/M ROOM: RE06/17/[address]: Dr. Juaquin Ramos DO : 1970 BED: DIS: 06/17/2024 SPEC #: [id number] RECD: 06/17/24 18:02 STATUS: TORY STUART #: [id number] KEN: 06/17/24 13:[address]: Juaquin Ramos DEPT: SURGICAL PATHOLOGY RECD BY: Joby Spivey ENTERED: 06/18/24 07:47 SP TYPE: COLON BX OTHR DR: Dr. Sherif Spann DO Tissues: A - Duodenum, NOS B - POLYP C - COLON BIOPSY D - Ileum, NOS E - COLON BIOPSY F - Sigmoid colon biopsy G - Sigmoid colon biopsy Procedures: Surgery Specimen Level IV HEADER OPERATION: Colonoscopy, EGD, biopsy PRE-OP DIAGNOSIS: Rectal hemorrhage, fatty liver, not elsewhere classified TISSUE SUBMITTED: A- Duodenum biopsy, B- Gastric polyp biopsy, C- Hepatic flexure polyp, D- Terminal ileum biopsy, E- Random colonic biopsy, F- Sigmoid biopsy, G- Sigmoid polyp biopsy MICROSCOPIC DIAGNOSIS A. Duodenum, biopsy: Fragments of duodenal mucosa, no pathologic diagnosis. B. Gastric polyp, biopsy: Fragments of gastric mucosa with minimal changes consistent with hyperplastic/inflammatory polyp. See comment. C. Hepatic flexure polyp, biopsy: Tubular adenoma. D. Terminal ileum, biopsy: Fragments of small intestinal mucosa, no pathologic diagnosis. E. Colon, random biopsy: Fragments of colonic mucosa, no pathologic diagnosis. F. Sigmoid colon, biopsy: A fragment of colonic mucosa, no pathologic diagnosis. G. Sigmoid polyp, biopsy: Hyperplastic polyp. 06/19/2024 COMMENT B. The results of immunohistochemistry for Helicobacter pylori will be reported separately ([id number]). MICROSCOPIC DESCRIPTION Slides are reviewed. GROSS DESCRIPTION A. Received in fixative is one container labeled with the patient's name and designated Duodenum biopsy. The specimen consists of multiple irregular fragments of light roblero soft tissue that in aggregate measure 1.8 x 0.3 x 0.1 cm. The specimen is totally submitted in one cassette. B. Received in fixative is one container labeled with the patient's name and designated Gastric polyp biopsy. The specimen consists of two irregular fragments of light roblero soft tissue that in aggregate measure 0.8 x 0.3 x 0.1 cm. The specimen is totally submitted in one cassette. C. Received in fixative is one container labeled with the patient's name and designated Hepatic flexure polyp. The specimen consists of multiple irregular fragments of light roblero soft tissue that in aggregate measure 1.5 x 0.3 x 0.1 cm. The specimen is totally submitted in one cassette. D. Received in fixative is one container labeled with the patient's name and designated Terminal ileum biopsy. The specimen consists of multiple irregular fragments of light roblero soft tissue that in aggregate measure 1.0 x 0.3 x 0.1 cm. The specimen is totally submitted in one cassette. E. Received in fixative is one container labeled with the patient's name and designated Random colonic biopsy. The specimen consists of multiple irregular fragments of light roblero soft tissue that in aggregate measure 2.0 x 0.6 x 0.1 cm. The specimen is totally submitted in one cassette. F. Received in fixative is one container labeled with the patient's name and designated Sigmoid biopsy. The specimen consists of two irregular fragments of light roblero soft tissue that measures 0.6 x 0.2 x 0.1 cm. The specimen is totally submitted in one cassette. G. Received in fixative is one container labeled with the patient's name and designated Sigmoid polyp biopsy. The specimen consists of one irregular fragment of light roblero soft tissue that measures 0.4 x 0.4 x 0.1 cm. The specimen is totally submitted in one cassette. SJ.mr 06/18/2024 TC:1 CPT:56263o7
--- NOTE | 2024-06-17 13:44 | HP.PCM_ITS ---
History and Physical Date of Admission: 06/17/24 TREASURE LEE, is a 54 M who presents to the office today for establishment with [facility] after ED visit for BRBPR. He tells me he has had a similar episode in the past with rectal bleeding, low BP, and abdominal cramping. At that time 10 years ago he underwent colonoscopy and EGD. He says he had polyps but no other abnormalities. During the last episode he notes that he was having constipation, straining and abdominal cramping. He has a history of GERD. Taking 40 mg of omeprazole daily which is helpful to him. He has occasional problems swallowing solids and liquids. Worsening heartburn with eating late at night and with acidic foods like tomatoes. Testicular cancer in 2013 s/p orchectomy. No chemo or radiation No hx of smoking or alcohol. CT abdomen/pelvis 05/09/24: Fatty infiltration of the liver. Calcified splenic granulomas. Sigmoid diverticulosis without evidence of divert iculitis.Nonobstructive right intrarenal calculus. ROS Const Constitutional: Positive for fever(s) and headache(s); No fatigue or weight change ENT ENT: Positive for headache(s) and difficulty swallowing Cardio Cardiology: Positive for leg pain with exertion Gastro GI: Positive for abdominal pain, bloating, change in bowel habits, constipation, diarrhea, heartburn, difficulty swallowing, excessive flatus and nausea/dyspepsia; No belching, change in stool character, coffee ground emesis, cramping, feeling full early, incontinent of stools, Vomiting blood/hematemesis, Blood in stool, loose stools, Black,tarry stools, pain with swallowing, vomiting or other Musc Musculoskeletal: Positive for joint swelling, numbness, tingling, Arthritis and leg pain with exertion Skin Skin: No yellowing of the eye or itchy eyes Neuro Neurology: Positive for headache(s), numbness and tingling Psych Psychiatric: No anxiety and No depression Endo Endocrine: No fatigue or weight change Aller/Imm Allergy/Immunologic: No itchy eyes Tee/Lymp Hematologic/Lymphatic: No easy bleeding or easy bruising Exam Const General: cooperative and comfortable Nutritional Appearance: average body habitus and well nourished [facility] Head: normal to inspection Ears: hearing grossly normal bilaterally Nose: external nose normal Face and sinus: normal facial exam Eyes General: appearance normal, both eyes and all related structures Neck Neck: normal visual inspection Chest Chest palpation & inspection: normal inspection of the chest Resp Effort & Inspection: normal respiratory effort Cardio Palpation: normal PMI GI Inspection: normal to inspection Palpation: no hepatosplenomegaly Skin General: no rashes or lesions noted Neuro General: patient alert Extrem General: normal to inspection Psych Affect: normal affect Assessment and Plan Assessment and Plan (1) Rectal hemorrhage: Plan: Patient is here today for establishment with I after ED visit for BRBPR. He has hx of rectal bleeding and GERD. Differential diagnosis for BRBPR is hemorrhoidal bleeding or diverticular. -He will be scheduled for colonoscopy and EGD. Last scopes were over 10 years ago with colonic polyps. -Will order CBC and iron to monitor for blood loss. 05.09.24 HGB was 14 previously higher -He will continue taking omeprazole 40 mg daily -Fatty infiltration of the liver seen on CT 05.09.24 will order elastography to monitor -Recommended adding fiber supplement to diet to prevent any straining during bowel movements. (2) Fatty (change of) liver, not elsewhere classified: Status: Acute Orders: Orders CBC W/Diff, Automated Today K62.5 - Hemorrhage of anus and rectum Iron+Iron Binding Capacity Today K62.5 - Hemorrhage of anus and rectum Elastography Parenchyma/Organ Today K76.0 - Fatty (change of) liver, not elsewhere classified I have examined the patient and the H&P has been reviewed. There are no clinical changes since date of exam.
--- NOTE | 2024-06-17 14:32 | OP.CCLET_ITS ---
06/17/[address] [place] [address] Re : Upper GI endoscopy procedure for Ricki Ryder Dear Dr. Spann This procedure was performed on Monday, June 17, 2024. My impressions and recommendations are as follows: Impressions : - Normal esophagus. - Three gastric polyps. Resected and retrieved. - Chronic duodenitis. Biopsied. Recommendations : - Discharge patient to home. - Resume previous diet. - Continue present medications. - Await pathology results. My findings are described in the full procedure note, which is enclosed. If I can be of further assistance, please feel free to contact me at . Sincerely, Juaquin Ramos, 06/17/2024 2:31:20 PM This report has been signed electronically.
--- NOTE | 2024-06-17 14:32 | OP.EGD_ITS ---
Patient Name: Ricki Ryder Procedure Date: 06/17/2024 1:48 PM Date of : 1970 Age: 54 Procedure: Upper GI endoscopy Indications: Epigastric abdominal pain, Functional Dyspepsia Providers: Juaquin Ramos DO Referring MD: Sherif Spann Medicines: Monitored Anesthesia Care Patient Profile: This is a 54 year old male. Refer to note in patient chart for documentation of history and physical. Patient has symptoms of chronic abdominal distention and dysphagia with both liquids and solids. Complications: No immediate complications. Procedure: Pre-Anesthesia Assessment: - Prior to the procedure, a History and Physical was performed, and patient medications and allergies were reviewed. The patient is competent. The risks and benefits of the procedure and the sedation options and risks were discussed with the patient. All questions were answered and informed consent was obtained. Patient identification and proposed procedure were verified by the physician in the pre-procedure area. Mental Status Examination: alert and oriented. Airway Examination: normal oropharyngeal airway and neck mobility. Respiratory Examination: clear to auscultation. CV Examination: normal. Prophylactic Antibiotics: The patient does not require prophylactic antibiotics. Prior Anticoagulants: The patient has taken no anticoagulant or antiplatelet agents except for NSAID medication. ASA Grade Assessment: II - A patient with mild systemic disease. After reviewing the risks and benefits, the patient was deemed in satisfactory condition to undergo the procedure. The anesthesia plan was to use monitored anesthesia care (MAC). Immediately prior to administration of medications, the patient was re-assessed for adequacy to receive sedatives. The heart rate, respiratory rate, oxygen saturations, blood pressure, adequacy of pulmonary ventilation, and response to care were monitored throughout the procedure. The physical status of the patient was re-assessed after the procedure. After obtaining informed consent, the endoscope was passed under direct vision. Throughout the procedure, the patient's blood pressure, pulse, and oxygen saturations were monitored continuously. The Colonoscope was introduced through the mouth, and advanced to the second part of duodenum. The upper GI endoscopy was accomplished without difficulty. The patient tolerated the procedure well. Scope In: 2:05:56 PM Scope Out: 2:09:52 PM Total Procedure Duration Time 0 hours 3 minutes 56 seconds Findings: The examined esophagus was normal. Three 4 mm sessile polyps with no bleeding and no stigmata of recent bleeding were found in the gastric antrum. The polyp was removed with a jumbo cold forceps. Resection and retrieval were complete. Verification of patient identification for the specimen was done. Estimated blood loss was minimal. Patchy mild inflammation characterized by granularity was found in the first portion of the duodenum. Biopsies were taken with a cold forceps for histology. Verification of patient identification for the specimen was done. Estimated blood loss was minimal. Impression: - Normal esophagus. - Three gastric polyps. Resected and retrieved. - Chronic duodenitis. Biopsied. Recommendation: - Discharge patient to home. - Resume previous diet. - Continue present medications. - Await pathology results. Procedure Code(s): --- Professional --- 03364, Esophagogastroduodenoscopy, flexible, transoral; with biopsy, single or multiple CPT copyright 2021 [employer]. All rights reserved. The codes documented in this report are preliminary and upon small animal veterinarian review may be revised to meet current compliance requirements. Juaquin Ramos DO 06/17/2024 2:31:20 PM This report has been signed electronically. Number of Addenda: 0 Note Initiated On: 06/17/2024 1:48 PM
--- NOTE | 2024-06-17 14:33 | PCM.POST.ANE ---
Anesthesia: Postop Eval I Current Vital Signs Temperature: 97.1 F Pulse Rate: 79 Blood Pressure: 105/63 Respiratory Rate: 16 Pulse Ox: 95 Oxygen Delivery Method: Room Air Assessment Airway patent: Yes Spontaneous unlabored respirations: Yes Mental status: Asleep nausea: No Vomiting: No Anesthesia Complication: No Fluid Hydration Crystalloid volume administer (ml): 800 Total IV fluid infused: 800 Progress Note Anesthesia document: Postop Eval 1 completed: Yes
--- NOTE | 2024-06-17 14:36 | OP.CCLET_ITS ---
06/17/2024 Sherif Spann [address] [facility] [place] [address] Re : Colonoscopy procedure for Ricki Ryder Dear Dr. Spann This procedure was performed on Monday, June 17, 2024. My impressions and recommendations are as follows: Impressions : - One 8 mm polyp at the hepatic flexure, removed with a cold snare. Resected and retrieved. - Two 3 mm polyps in the rectum, removed with a jumbo cold forceps. Resected and retrieved. - Diverticulosis in the recto-sigmoid colon, in the sigmoid colon and in the descending colon. - Congested mucosa in the entire examined colon. Biopsied. - Inflammation was found in the ileum secondary to ileitis. Biopsied. Recommendations : - Discharge patient to home. - Resume previous diet. - Continue present medications. - Await pathology results. - Repeat colonoscopy in 5 years for surveillance. My findings are described in the full procedure note, which is enclosed. If I can be of further assistance, please feel free to contact me at . Sincerely, Juaquin Ramos, 06/17/2024 2:35:49 PM This report has been signed electronically.
--- NOTE | 2024-06-17 14:36 | OP.COLON_ITS ---
Patient Name: Ricki Ryder Procedure Date: 06/17/2024 2:10 PM Date of : 1970 Age: 54 Procedure: Colonoscopy Indications: Chronic diarrhea Providers: Juaquin Ramos DO Referring MD: Sherif Spann Medicines: Monitored Anesthesia Care Patient Profile: This is a 54 year old male. Refer to note in patient chart for documentation of history and physical. Patient has symptoms of chronic abdominal distention and dysphagia with both liquids and solids. Last Colonoscopy: date unknown. Unable to locate last colonoscopy report. Complications: No immediate complications. Procedure: Pre-Anesthesia Assessment: - Prior to the procedure, a History and Physical was performed, and patient medications and allergies were reviewed. The patient is competent. The risks and benefits of the procedure and the sedation options and risks were discussed with the patient. All questions were answered and informed consent was obtained. Patient identification and proposed procedure were verified by the physician in the pre-procedure area. Mental Status Examination: alert and oriented. Airway Examination: normal oropharyngeal airway and neck mobility. Respiratory Examination: clear to auscultation. CV Examination: normal. Prophylactic Antibiotics: The patient does not require prophylactic antibiotics. Prior Anticoagulants: The patient has taken no anticoagulant or antiplatelet agents except for NSAID medication. ASA Grade Assessment: II - A patient with mild systemic disease. After reviewing the risks and benefits, the patient was deemed in satisfactory condition to undergo the procedure. The anesthesia plan was to use monitored anesthesia care (MAC). Immediately prior to administration of medications, the patient was re-assessed for adequacy to receive sedatives. The heart rate, respiratory rate, oxygen saturations, blood pressure, adequacy of pulmonary ventilation, and response to care were monitored throughout the procedure. The physical status of the patient was re-assessed after the procedure. After I obtained informed consent, the scope was passed under direct vision. Throughout the procedure, the patient's blood pressure, pulse, and oxygen saturations were monitored continuously. The Colonoscope was introduced through the anus and advanced to the terminal ileum. The colonoscopy was performed without difficulty. The patient tolerated the procedure well. The quality of the bowel preparation was adequate. The terminal ileum, ileocecal valve, appendiceal orifice, and rectum were photographed. Scope In: 2:11:36 PM Scope Withdrawal Time 0 hours 7 minutes 40 seconds Scope Out: 2:24:15 PM Total Procedure Duration Time 0 hours 12 minutes 39 seconds Findings: The perianal and digital rectal examinations were normal. An 8 mm polyp was found in the hepatic flexure. The polyp was sessile. The polyp was removed with a cold snare. Resection and retrieval were complete. Verification of patient identification for the specimen was done. Estimated blood loss was minimal. Two sessile polyps were found in the rectum. The polyps were 3 mm in size. These polyps were removed with a jumbo cold forceps. Resection and retrieval were complete. Verification of patient identification for the specimen was done. Estimated blood loss was minimal. A few small-mouthed diverticula were found in the recto-sigmoid colon, sigmoid colon and descending colon. An area of mildly congested mucosa was found in the entire colon. Biopsies were taken with a cold forceps for histology. Verification of patient identification for the specimen was done. Estimated blood loss was minimal. Localized inflammation characterized by erosions and erythema was found in the terminal ileum. Biopsies were taken with a cold forceps for histology. Verification of patient identification for the specimen was done. Estimated blood loss was minimal. Impression: - One 8 mm polyp at the hepatic flexure, removed with a cold snare. Resected and retrieved. - Two 3 mm polyps in the rectum, removed with a jumbo cold forceps. Resected and retrieved. - Diverticulosis in the recto-sigmoid colon, in the sigmoid colon and in the descending colon. - Congested mucosa in the entire examined colon. Biopsied. - Inflammation was found in the ileum secondary to ileitis. Biopsied. Recommendation: - Discharge patient to home. - Resume previous diet. - Continue present medications. - Await pathology results. - Repeat colonoscopy in 5 years for surveillance. Procedure Code(s): --- Professional --- 46754, Colonoscopy, flexible; with removal of tumor(s), polyp(s), or other lesion(s) by snare technique 87695, 59, Colonoscopy, flexible; with biopsy, single or multiple CPT copyright 2021 [employer]. All rights reserved. The codes documented in this report are preliminary and upon vehicle body builder review may be revised to meet current compliance requirements. Juaquin Ramos DO 06/17/2024 2:35:49 PM This report has been signed electronically. Number of Addenda: 0 Note Initiated On: 06/17/2024 2:10 PM
--- NOTE | 2024-06-17 16:35 | PCM.POSTANE2 ---
Anesthesia Postop Eval I Sum Postop Eval Completion status Anesthesia document: Postop Eval 1 completed: Yes Anesthesia Postop Eval I Summary Anesthesia Postop Eval I Summary: Anesthesia Postop Eval I: Assessment Summary Airway patent Yes 06/17/24 14:34 [email or web address] Spontaneous unlabored Yes 06/17/24 14:34 [email or web address] respirations Mental status Asleep 06/17/24 14:34 [email or web address] nausea No 06/17/24 14:34 [email or web address] Vomiting No 06/17/24 14:34 [email or web address] Anesthesia Postop Eval I: Fluid Summary Crystalloid volume administer 800 06/17/24 14:34 [email or web address] (ml) Colloids volume administered ( ml) Blood Product volume administered (ml) Total IV fluid infused 800 06/17/24 14:34 [email or web address] Anesthesia Postop Eval I: Summary Notes Anesthesia Complication No 06/17/24 14:34 [email or web address] Anesthesia Complication Comment: Post-operative progress note Anesthesia: Postop Eval II Evaluation Mental status: Awake and Calm Pain Level: 0 nausea: No Vomiting: No Complications Anesthesia Complication: No
== END 2024-06-17 15:29 | disposition home or self-care (01) ==
LOC: EN 12:14 → AC 12:14
PROVIDERS: PCP Family Medicine; Referring Provider Family Medicine; Visit Provider Internal Medicine Gastroenterology
PROC: 0DJD8ZZ Inspection of Lower Intestinal Tract, Via Natural or Artificial Opening Endoscopic (ICD-10-PCS; CPT 45378; principal; 2024-06-17 13:25)
DX: K62.5 Hemorrhage of anus and rectum (principal); K31.7 Polyp of stomach and duodenum; K57.30 Diverticulosis of large intestine without perforation or abscess without bleeding; K63.5 Polyp of colon; K62.1 Rectal polyp; K29.80 Duodenitis without bleeding; K76.0 Fatty (change of) liver, not elsewhere classified; K21.9 Gastro-esophageal reflux disease without esophagitis; Z79.899 Other long term (current) drug therapy; K63.89 Other specified diseases of intestine
CPT/HCPCS: 45385; 45380; 43239; 88305; 88342; J7120; J2405

== ENCOUNTER 2024-09-18 22:43 | Emergency (ER) | payer OTHER, SELFPAY ==
[2024-09-18 22:44] VITALS: BP 162/102; PULSE 97; RESP 18; TEMP 36.6; O2SAT 97; BMI 45.1
[2024-09-18 23:25] LABS: Bacteria 0 SEEN /hpf (None Seen); Mucous, Urine 0 SEEN /hpf (<or=2+); Red Blood Cells-Urine 0 SEEN /hpf (0-5); Squamous Epithelial Cells - UA 0 SEEN /hpf (0-5); White Blood Cells 0 SEEN /hpf (0-5)
[2024-09-18] MEDS: Ketorolac 30 MG/ML Syringe IM (23:25)
[2024-09-18] MEDS: Orphenadrine 60 MG/2 ML Ampul IM (23:25)
[2024-09-18 23:27] LABS: Color, Urine Yellow (Yellow); Glucose, Dipstick Normal (Normal); Ketone-Dipstick Negative (Negative); Leukocyte Esterase-Dipstick Negative /ul (Negative); Nitrite-Dipstick Negative (Negative); Occult Blood-Urine 10 /ul (Negative); Protein-Dipstick Negative (Negative); Specific Gravity, Urine 1.015 (1.002-1.030); Urine Bilirubin Dipstick Negative (Negative); Urine Clarity Clear (Clear); Urine Urobilinogen Normal (Normal)
--- NOTE | 2024-09-18 23:43 | CT_ITS ---
INDICATION: Lumbar radiculopathy EXAMINATION: CT LUMBAR SPINE - CT Spine Lumbar W/O Contrast Injection TECHNIQUE: Helically acquired images were obtained of the lumbar spine with sagittal and coronal reconstructed images. Individualized dose optimization techniques were used for this CT. COMPARISON: 05/09/2024 CT. FINDINGS: VERTEBRAE: No fracture or subluxation. Mild degenerative changes. SOFT TISSUES: The paravertebral soft tissues are unremarkable. ABDOMEN/PELVIS: Nonobstructing right renal stone. Diverticulosis. Retroaortic left renal vein. CT/Spine Lumbar without Contrast IMPRESSION: Mild degenerative changes with no acute abnormality. For the evaluation of radiculopathy, recommend follow-up with MRI to better evaluate the discs and neural foramina, not well-visualized on CT. Electronically Signed: Musa Callahan DO at 0:32 EST ,
[2024-09-18 23:46] LABS: Bedside Glucose 116 mg/dL (74-106)
[2024-09-19 00:43] VITALS: PULSE 81; RESP 18; O2SAT 97
--- NOTE | 2024-09-19 00:53 | EDS_ITS ---
HPI History of Present Illness Chief Complaint: Flank Pain Informant: patient Narrative Narrative: Patient is a 54-year-old male who reports that over the past few days he has been having right sided back pain. He states that it does hurt to move but he reports no excessive activity or trauma prior to the pain beginning. He states he feels like he has been urinating more often but denies any hematuria or dysuria. He denies any loss of bowel or bladder control or IV drug use. He states the pain does seem to radiate into his right buttocks or posterior thigh region. The patient had concern for potential infection or kidney stone because of his recurrent pain and therefore presents for evaluation [facility] Medical History (Updated 09/19/24 @ 03:[address] Darrell Myers, DO) GERD (gastroesophageal reflux disease) CPAP (continuous positive airway pressure) dependence Sleep apnea Migraines Cancer Fatty liver Heartburn Non-smoker History of stress test Home Medications ?Medication ?Instructions ?Recorded ?Last Taken ?Type albuterol sulfate 90 mcg/actuation 1 puff inhalation Q6H PRN PRN Sob 01/18/15 Unknown History aerosol inhaler (Ventolin HFA) &/Or Wheezing albuterol sulfate 2.5 mg/0.5 mL 2.5 mg inhalation Q20M 10/28/21 Unknown History solution for nebulization omeprazole 20 mg capsule,delayed 40 mg PO DAILY 06/17/24 06/17/24 History release budesonide 3 mg 6 mg (2 x 3 mg) PO QDAY #60 ea 06/23/24 Unknown Rx capsule,delayed,extended release ketorolac 10 mg tablet 10 mg PO 4X/DAY PRN pain 5 days 09/19/24 Unknown Rx #20 tabs methocarbamol 500 mg tablet 1,000 mg (2 x 500 mg) PO 4X/DAY 09/19/24 Unknown Rx PRN Muscle pain/spasm #56 tabs Allergy/AdvReac Type Severity Reaction Status Date / Time Penicillins Allergy Unknown Verified 09/18/24 22:46 Sulfa (Sulfonamide Allergy Unknown Verified 09/18/24 22:46 Antibiotics) Surgical History H/O removal of testicle History of tonsillectomy Social History Smoking Status: Never smoker ROS ROS ED Constitutional Constitutional ED: Denies chills or fever(s) Eyes Eyes: Denies blurry vision or change in vision ENT ENT ED: Denies sore throat Cardiovascular Cardiovascular: Denies chest pain Respiratory/Chest Respiratory/Chest: Denies cough or dyspnea Gastrointestinal Gastrointestinal: Denies abdominal pain, diarrhea, nausea or vomiting Genitourinary Genitourinary ED: Reports urinary frequency; Denies dysuria or hematuria Musculoskeletal Musculoskeletal: Reports back pain Integumentary Denies rash Neurologic Neurologic: Denies headache(s) or paresthesias Hematologic/Lymphatic Hematologic/Lymphatic: Denies easy bleeding or easy bruising EXAM Physical Exam Const Vital Signs: 09/18/24 22:44 09/19/24 00:43 Temperature 98 F Temperature Source Oral Pulse Rate 97 81 Respiratory Rate 18 18 Blood Pressure 162/102 H Blood Pressure Mean 122 Pulse Ox 97 97 Oxygen Delivery Method Room Air Room Air Positive well nourished, well developed and obese General Appearance ED: well developed; Negative for pallor Nutritional Appearance: obese HEENT HEENT Narrative: Normocephalic atraumatic Eyes PERRL and EOMs intact bilaterally General Eye ED: Negative for scleral icterus Neck supple Resp normal respiratory effort and clear to auscultation bilaterally Cardio regular rate and regular rhythm Rate: other Other Details: Heart is regular rate and rhythm Radial and carotid pulses are equal and symmetric GI normal to inspection, nondistended, normoactive bowel sounds, non-tender, non- distended and no masses GI Narrative: No voluntary guarding or rigidity or pulsatile mass Auscultation: normoactive bowel sounds Palpation: soft Back/Spine no CVA tenderness Back/Spine Narrative: No bony deformity or step-off of the thoracic or lumbar spine but there is midline lumbar pain with palpation There is also right sided paralumbar tension and spasm noted with pain on pa lpation that worsens with extension and rotation No saddle anesthesia. Negative straight leg raise. No clonus or Babinski. Patellar reflexes are plus 2 out of 4 bilaterally Extremity normal to inspection Extremity Narrative: No asymmetric edema no pitting edema negative Homans' sign bilaterally Neuro oriented x3, CN's II-XII intact bilaterally and no sensory deficits noted Sensorium / Orientation: alert Psych mental status grossly normal Skin no rashes or lesions noted and no wounds Skin Narrative: No overlying soft tissue changes to suggest trauma or infection General Skin Exam: Negative for jaundice or pallor MDM MDM MDM Narrative Medical decision making narrative: Patient arrived to ER hypertensive otherwise with stable vitals. He reported pain in the right low back that radiated towards the buttock/thigh region. He denied loss of bowel or bladder control or IV drug use going against cauda equina or epidural abscess. There is no external findings of trauma or infection to suggest cellulitis abscess or shingles. The pain was worse with motion indicating lumbosacral strain but has also radiated down the thigh there was concern for lumbar radiculopathy. There is also concern patient may have UTI or pyelonephritis or kidney stone. The urine sample showed no sign of infection and there was no red blood cells in the microscopic urine going against stone. Patient also reported urinary frequency and as there is no infection that could be related to his undiagnosed diabetes but his random blood sugar is normal at 116. CT scan showed degenerative changes without obvious fracture or compression of the spine. After treatment with Toradol and Norflex he did have improvement of his pain indicating this is most likely musculoskeletal in nature. Therefore there is no need for further workup and [place] can be discharged home with symptomatic care History & Record Review Discussion w/independent historian: Patient Lab Data Attestation: I reviewed the patient's lab results. Labs: Laboratory Results - last 24 hr 09/18/24 09/18/24 23:20 23:24 Urine Color Yellow Urine Clarity Clear Urine pH 6.0 Ur Specific Martin 1.015 Urine Protein Negative Urine Glucose (UA) Normal Urine Ketones Negative Urine Occult Blood 10 H Urine Nitrite Negative Urine Bilirubin Negative Urine Urobilinogen Normal Ur Leukocyte Esterase Negative Urine RBC 0 SEEN Urine WBC 0 SEEN Ur Squamous Epith Cells 0 SEEN Urine Bacteria 0 SEEN Urine Mucus 0 SEEN POC Glucose 116 H Radiography Diagnostic Testing: Clinical Impression(s) from Imaging Studies Lumbar Spine CT 09/18/24 23:43 IMPRESSION: Mild degenerative changes with no acute abnormality. For the evaluation of radiculopathy, recommend follow-up with MRI to better evaluate the discs and neural foramina, not well-visualized on CT. Electronically Signed: Musa Callahan DO at 0:32 EST , Discharge Plan Triage Chief Complaint: Flank Pain ED Provider: Darrell Myers Dx/Rx/DC Orders Clinical Impression: Acute lumbosacral myofascial strain, Asthma, Hypertension Instructions: Understanding Lumbosacral Strain Prescriptions: New methocarbamol 500 mg tablet 1,000 mg PO 4X/DAY PRN (Reason: Muscle pain/spasm) Qty: 56 1RF ketorolac 10 mg tablet 10 mg PO 4X/DAY PRN (Reason: pain) 5 Days Qty: 20 0RF No Action albuterol sulfate [Ventolin HFA] 1 INHALER inhaler 1 puff inhalation Q6H PRN PRN (Reason: Sob &/Or Wheezing) albuterol sulfate 2.5 mg/0.5 mL Solution For Nebulization 2.5 mg INHALATION Q20M omeprazole 20 mg capsule,delayed release(DR/EC) 40 mg PO DAILY budesonide 3 mg capsule,delayed,extend.release 6 mg PO QDAY Qty: 60 3RF Stand Alone Forms: ED Work / School Excuse Primary Care Provider: Sherif Spann Referrals: Sherif Spann, [Primary Care Provider] - Activity Restrictions/Additional Instructions: Please continue to stretch and heat your back to reduce pain and speed healing. Take the prescribed medication as directed to help control symptoms. Return to the ER should you have any further concerns Print Language: Tamazight Disposition Disposition: Home, Self Care Discharge Date/Time: 09/19/24 01:05
== END 2024-09-19 01:05 | disposition home or self-care (01) ==
PROVIDERS: Emergency Provider Emergency Medicine; PCP Family Medicine; Referring Provider Emergency Medicine; Visit Provider Emergency Medicine
DX: S39.012A Strain of muscle, fascia and tendon of lower back, initial encounter (principal); J45.909 Unspecified asthma, uncomplicated; R10.9 Unspecified abdominal pain; I10 Essential (primary) hypertension; M47.819 Spondylosis without myelopathy or radiculopathy, site unspecified; E66.9 Obesity, unspecified; R35.0 Frequency of micturition; Z99.89 Dependence on other enabling machines and devices; K21.9 Gastro-esophageal reflux disease without esophagitis; G47.30 Sleep apnea, unspecified; X58.XXXA Exposure to other specified factors, initial encounter
CPT/HCPCS: 72131; 81001; 82962; 96372; 99283

== ENCOUNTER 2024-10-24 11:56 | Emergency (ER) | payer OTHER, SELFPAY ==
[2024-10-24 11:57] VITALS: BP 192/89; PULSE 99; RESP 16; TEMP 36.8; O2SAT 98; BMI 43.9
[2024-10-24 12:13] VITALS: BP 179/100; PULSE 102; RESP 21; TEMP 36.3; O2SAT 96
[2024-10-24 12:15] VITALS: O2SAT 96
--- NOTE | 2024-10-24 12:20 | EDS_ITS ---
HPI <RADHA Lucas - Last Filed: 10/24/24 14:23> History of Present Illness Chief Complaint: Shortness of Breath Narrative Narrative: 54-year-old male with past medical history of asthma, Crohn's disease has had 5 days of congestion and productive cough. The day after his illness started he started to feel short of breath with worsening cough. He went to urgent care 2 days ago and had a negative COVID/flu test. They did not have an x-ray tech available at that time. He was prescribed a Z-George and prednisone burst. So far he has taken 2 days worth which included prednisone 60 mg each day. He went back to urgent care and his pulse ox was around 9 1% so they sent him in for evaluation. He does not wear home oxygen. He does not smoke. [facility] <RADHA Lucas - Last Filed: 10/24/24 14:23> [facility] Medical History (Updated 10/24/24 @ 13:24 by RADHA Lucas) GERD (gastroesophageal reflux disease) CPAP (continuous positive airway pressure) dependence Sleep apnea Migraines Cancer Fatty liver Heartburn Non-smoker History of stress test Home Medications ?Medication ?Instructions ?Recorded ?Last Taken ?Type albuterol sulfate 90 mcg/actuation 1 puff inhalation Q6H PRN PRN Sob 01/18/15 Unknown History aerosol inhaler (Ventolin HFA) &/Or Wheezing albuterol sulfate 2.5 mg/0.5 mL 2.5 mg inhalation Q20M 10/28/21 Unknown History solution for nebulization omeprazole 20 mg capsule,delayed 40 mg PO DAILY 06/17/24 06/17/24 History release budesonide 3 mg 6 mg (2 x 3 mg) PO QDAY #60 ea 06/23/24 Unknown Rx capsule,delayed,extended release ketorolac 10 mg tablet 10 mg PO 4X/DAY PRN pain 5 days 09/19/24 Unknown Rx #20 tabs methocarbamol 500 mg tablet 1,000 mg (2 x 500 mg) PO 4X/DAY 09/19/24 Unknown Rx PRN Muscle pain/spasm #56 tabs Allergy/AdvReac Type Severity Reaction Status Date / Time Penicillins Allergy Unknown Verified 10/24/24 11:58 Sulfa (Sulfonamide Allergy Unknown Verified 10/24/24 11:58 Antibiotics) Surgical History H/O removal of testicle History of tonsillectomy Social History Smoking Status: Never smoker ROS <RADHA Lucas - Last Filed: 10/24/24 14:23> ROS ED ROS Narrative Constitutional: Negative for fever. Positive malaise. CVS: Negative for chest pain Respiratory: Positive for shortness of breath, cough. GI: Negative for abdominal pain, nausea, vomiting, diarrhea. EXAM <RADHA Lucas - Last Filed: 10/24/24 14:23> Physical Exam Narrative Exam Narrative: CONST: Patient sitting in no acute distress. EYES: Normal inspection NECK: Normal inspection. RESP: Able to speak in full sentences, frequent cough. Lung sounds diminished with expiratory wheezing throughout. CVS: Regular rate and rhythm, no murmur, no gallop. SKIN: Color normal, no rash, warm, dry, intact. EXTREMITIES: Normal appearance, no pedal edema. NEURO: Alert and answering questions appropriately. PSYCH: Normal affect. Const Vital Signs: 10/24/24 11:57 10/24/24 12:13 10/24/24 12:15 Temperature 98.2 F 97.4 F L Temperature Source Oral Oral Pulse Rate 99 102 H Respiratory Rate 16 21 H Respiratory Effort Short of Breath Labored Respiratory Depth Deep Respiratory Pattern Hyperpnea Blood Pressure 192/89 H 179/100 H Blood Pressure Mean 123 126 Pulse Ox 98 96 Oxygen Delivery Method Room Air Room Air Room Air 10/24/24 12:31 10/24/24 13:17 10/24/24 13:38 Temperature 98.2 F Temperature Source Pulse Rate 94 90 98 Respiratory Rate 16 16 19 H Respiratory Effort Respiratory Depth Respiratory Pattern Normal Normal Blood Pressure 111/84 H Blood Pressure Mean 93 Pulse Ox 97 Oxygen Delivery Method <Dr. Ashvin Hudson DO - Last Filed: 10/26/24 14:36> Physical Exam Const Vital Signs: 10/24/24 11:57 10/24/24 12:13 10/24/24 12:15 Temperature 98.2 F 97.4 F L Temperature Source Oral Oral Pulse Rate 99 102 H Respiratory Rate 16 21 H Respiratory Effort Short of Breath Labored Respiratory Depth Deep Respiratory Pattern Hyperpnea Blood Pressure 192/89 H 179/100 H Blood Pressure Mean 123 126 Pulse Ox 98 96 Oxygen Delivery Method Room Air Room Air Room Air 10/24/24 12:31 10/24/24 13:17 10/24/24 13:38 Temperature 98.2 F Temperature Source Pulse Rate 94 90 98 Respiratory Rate 16 16 19 H Respiratory Effort Respiratory Depth Respiratory Pattern Normal Normal Blood Pressure 111/84 H Blood Pressure Mean 93 Pulse Ox 97 Oxygen Delivery Method MDM <RADHA Lucas - Last Filed: 10/24/24 14:23> [facility] Narrative Medical decision making narrative: Differential: Viral URI, pneumonia, asthma exacerbation 54-year-old male with history of asthma presents with 5 days of URI symptoms with wheezing. He has been taking azithromycin and prednisone for 2 days from urgent care. He is awake alert without respiratory distress. He was initially hypertensive at 192/89 but otherwise stable. He is 98% on room air. He does have significant expiratory wheezing and was ordered a DuoNeb. I did not order steroids because he took prednisone 60 mg today. Viral swab is negative for COVID/flu/RSV and CXR shows no acute process. After additional albuterol treatments he is feeling improved and did not drop with ambulatory pulse ox is appropriate for outpatient management. I recommended he continue the antibiotics and steroids he is on, uses nebulizer, and discussed return precautions. Lab Data Attestation: I reviewed the patient's lab results. Radiography Diagnostic Testing: Clinical Impression(s) from Imaging Studies Chest X-Ray 10/24/24 12:20 IMPRESSION: Findings suggestive of bibasilar atelectasis. Electronically Signed: Maicol Ford MD at 12:34 [facility] , ED attending interpretation of 2-view chest x-ray shows normal heart size, no acute infiltrate. <Dr. Ashvin Hudson DO - Last Filed: 10/26/24 14:36> [facility] Narrative Medical decision making narrative: Differential: Viral URI, pneumonia, asthma exacerbation 54-year-old male with history of asthma presents with 5 days of URI symptoms with wheezing. He has been taking azithromycin and prednisone for 2 days from urgent care. He is awake alert without respiratory distress. He was initially hypertensive at 192/89 but otherwise stable. He is 98% on room air. He does have significant expiratory wheezing and was ordered a DuoNeb. I did not order steroids because he took prednisone 60 mg today. Viral swab is negative for COVID/flu/RSV and CXR shows no acute process. After additional albuterol treatments he is feeling improved and did not drop with ambulatory pulse ox is appropriate for outpatient management. I recommended he continue the antibiotics and steroids he is on, uses nebulizer, and discussed return precautions. Supervisory Physician Note Patient was seen and examined with the Advanced Practice Provider. Nursing notes and vital signs have been reviewed. Pertinent old records have been reviewed. I agree with the essential elements of the LYNDON's history, physical exam, assessment, and plan. The differential diagnosis and management options were discussed with the LYNDON. I participated in determining and agree with the management, procedures, final impression and disposition as documented. See changes noted by me. Please see addendum or separate note for any additional details. Radiography Diagnostic Testing: Clinical Impression(s) from Imaging Studies Chest X-Ray 10/24/24 12:20 IMPRESSION: Findings suggestive of bibasilar atelectasis. Electronically Signed: Maicol Ford MD at 12:34 EST Reading Location ID and State: [address] [place] [address] , Service support , Discharge Plan Triage Chief Complaint: Shortness of Breath ED Midlevel Provider: Rowena Pugh ED Provider: Ashvin Hudson Dx/Rx/DC Orders Clinical Impression: Acute URI, Acute asthma exacerbation Instructions: Asthma and COPD Prescriptions: No Action albuterol sulfate [Ventolin HFA] 1 INHALER inhaler 1 puff inhalation Q6H PRN PRN (Reason: Sob &/Or Wheezing) albuterol sulfate 2.5 mg/0.5 mL Solution For Nebulization 2.5 mg INHALATION Q20M omeprazole 20 mg capsule,delayed release(DR/EC) 40 mg PO DAILY methocarbamol 500 mg tablet 1,000 mg PO 4X/DAY PRN (Reason: Muscle pain/spasm) Qty: 56 1RF ketorolac 10 mg tablet 10 mg PO 4X/DAY PRN (Reason: pain) 5 Days Qty: 20 0RF budesonide 3 mg capsule,delayed,extend.release 6 mg PO QDAY Qty: 60 3RF Primary Care Provider: Sherif Spann Referrals: Sherif Spann, [Primary Care Provider] - Activity Restrictions/Additional Instructions: Continue the antibiotics and steroids prescribed by urgent care. Use your inhaler. Follow-up with your primary care doctor. Return if symptoms worsen. Print Language: Frisian Disposition Disposition: Home, Self Care Discharge Date/Time: 10/24/24 13:40
--- NOTE | 2024-10-24 12:20 | RAD_ITS ---
STUDY: X-RAY CHEST REASON FOR EXAM: Male, 54 years old. Cough and shortness of breath. TECHNIQUE: PA and lateral views of the chest. COMPARISON: Comparison is made with prior study dated July 06, 2021. FINDINGS: Mild increased linear markings at the lung bases with areas of confluence suggests some bibasilar atelectasis. There is no demonstrated pleural abnormality. Normal size heart. Normal mediastinum and sweetie. Normal visualized pulmonary arteries. Normal visualized aortic arch and descending thoracic aorta. There are degenerative changes of the visualized thoracic spine. Normal visualized ribs, clavicles, and shoulders. There is no demonstrated abnormality of the visualized soft tissue structures of the upper abdomen. RAD/Chest PA and Lateral IMPRESSION: Findings suggestive of bibasilar atelectasis. Electronically Signed: Maicol Ford MD at 12:34 EST ,
[2024-10-24 12:31] VITALS: PULSE 94; RESP 16
[2024-10-24] MEDS: Ipratropium/Albuterol Sulfate 3 ML AMPUL.NEB INHALATION (12:31)
[2024-10-24] MEDS: Albuterol 2.5 MG/3 ML VIAL.NEB. 5 MG INHALATION (13:16)
[2024-10-24 13:17] VITALS: PULSE 90; RESP 16
[2024-10-24 13:38] VITALS: BP 111/84; PULSE 98; RESP 19; TEMP 36.8; O2SAT 97
== END 2024-10-24 13:40 | disposition home or self-care (01) ==
PROVIDERS: Emergency Provider Surgery; PCP Family Medicine; Visit Provider Surgery
DX: J06.9 Acute upper respiratory infection, unspecified (principal); J45.901 Unspecified asthma with (acute) exacerbation; Z99.89 Dependence on other enabling machines and devices; G47.30 Sleep apnea, unspecified; K21.9 Gastro-esophageal reflux disease without esophagitis
CPT/HCPCS: 71046; 87631; 94640; 99282; A4216

== ENCOUNTER 2024-10-26 18:04 | Inpatient (IN) | payer OTHER, SELFPAY ==
[2024-10-26] VITALS (11 sets, daily range): BP systolic 136–205; BP diastolic 78–94; PULSE 88–103; RESP 16–24; TEMP 36.4–36.7; O2SAT 92–99; BMI 45.0; BMI 43.0
--- NOTE | 2024-10-26 18:30 | EKG12_ITS ---
Test Reason : COLD SX Blood Pressure : */* mmHG Vent. Rate : 93 BPM Atrial Rate : 93 BPM P-R Int : 170 ms QRS Dur : 98 ms QT Int : 356 ms P-R-T Axes : 52 9 67 degrees QTcB Int : 442 ms Normal sinus rhythm Normal ECG Confirmed by DEEPIKA MELVIN, ORQUIDEA ([id number]), art editor TRISH BLACKWOOD ([id number]) on 10/27/2024 10:59:48 A M Referred By: AMAN Confirmed By: ORQUIDEA POE MD
--- NOTE | 2024-10-26 18:40 | RAD_ITS ---
EXAM: XR CHEST, 1 VIEW CLINICAL INDICATION: dyspnea TECHNIQUE: Frontal view of the chest. COMPARISON: 10.24.24 FINDINGS: LUNGS AND PLEURAL SPACES: Unremarkable. No consolidation or edema. No pneumothorax. No effusion. HEART: Unremarkable. Cardiac silhouette not enlarged. MEDIASTINUM: Central airways and mediastinal contour are unremarkable. BONES/JOINTS: Unremarkable. No acute fracture. SOFT TISSUES: Unremarkable. RAD/Chest 1 View (Portable) IMPRESSION: No radiographic evidence of acute cardiopulmonary disease. Electronically Signed: Salazar Armstrong MD at 19:29 EST ,
[2024-10-26 18:49] LABS: Absolute Neutrophil Count 9.2 X10^3/uL (2.0-7.7); Basophil# 0.02 X10^3/uL; Basophil% 0.2 % (0-1); Hematocrit 44.1 % (40-54); Hemoglobin 15.2 g/dL (13.0-16.5); Lymphocyte % 6.6 % (19-41); Mean Corp Hgb Conc 34.5 g/dL (32-36); Mean Corpuscular Hgb 30.2 pg (27.0-32.0); Mean Corpuscular Volume 87.7 fL (80-94); Mean Platelet Vol. 8.4 fl (6.2-12.0); Monocyte# 0.52 X10^3/uL; Monocyte% 4.9 % (0-10); NRBC Flagged by Analyzer 0 % (0-5); Neutrophil # 9.19 X10^3/uL (2.7-7.7); Neutrophil % 86.9 % (47-70); Platelet Count 276 K/mm3 (150-450); RBC Distribution Width CV 13.2 % (11.6-14.6); RBC Distribution Width SD 42.1 fl (35.1-43.9); Red Blood Count 5.03 M/mm3 (4.6-6.2); White Blood Count 10.6 K/mm3 (4.4-11.0)
--- NOTE | 2024-10-26 18:53 | ED.VIS.DYS ---
HPI History of Present Illness Chief Complaint: Cold Sx Informant: patient Narrative Narrative: This is a 54-year-old male presenting to the emergency room with a chief complaint of hypertension and low pulse ox. Patient states that last week he went to urgent care was diagnosed with bronchitis was placed on a Z-George and some prednisone. Returned a couple days later was noted that he was hypertensive and his pulse ox was low and he was sent to emergency. He states he has been using aerosols he does not seem like he is getting any better and today his blood pressure was over 200 systolically and his pulse ox was in the 80s. He notes its become increasingly difficult for him to lay down flat. He notes his cough is nonproductive. He denies any fever. He notes his legs are now swollen. He does not carry a history of hypertension per him. He notes his CPAP machine has been broken recently and he is trying to get a new one. The patient also casually mentions that he has developed a central chest pressure. This is come on today. [facility] Medical History GERD (gastroesophageal reflux disease) CPAP (continuous positive airway pressure) dependence Sleep apnea Migraines Cancer Fatty liver Heartburn Non-smoker History of stress test Home Medications ?Medication ?Instructions ?Recorded ?Last Taken ?Type albuterol sulfate 90 mcg/actuation 1 puff inhalation Q6H PRN PRN Sob 01/18/15 Unknown History aerosol inhaler (Ventolin HFA) &/Or Wheezing albuterol sulfate 2.5 mg/0.5 mL 2.5 mg inhalation Q20M 10/28/21 Unknown History solution for nebulization omeprazole 20 mg capsule,delayed 40 mg PO DAILY 06/17/24 06/17/24 History release budesonide 3 mg 6 mg (2 x 3 mg) PO QDAY #60 ea 06/23/24 Unknown Rx capsule,delayed,extended release ketorolac 10 mg tablet 10 mg PO 4X/DAY PRN pain 5 days 09/19/24 Unknown Rx #20 tabs methocarbamol 500 mg tablet 1,000 mg (2 x 500 mg) PO 4X/DAY 09/19/24 Unknown Rx PRN Muscle pain/spasm #56 tabs Allergy/AdvReac Type Severity Reaction Status Date / Time Penicillins Allergy Unknown Verified 10/26/24 18:05 Sulfa (Sulfonamide Allergy Unknown Verified 10/26/24 18:05 Antibiotics) Surgical History H/O removal of testicle History of tonsillectomy Social History Smoking Status: Never smoker ROS ROS ED Constitutional Constitutional ED: Denies chills, fever(s) or weight loss Eyes Eyes: Denies change in vision or diplopia ENT ENT ED: Denies ear pain, rhinorrhea or sore throat Cardiovascular Cardiovascular: Reports chest pain; Denies orthopnea, palpitations or racing heartbeat Respiratory/Chest Respiratory/Chest: Reports cough and dyspnea; Denies orthopnea Gastrointestinal Gastrointestinal: Denies abdominal pain, diarrhea, nausea or vomiting Genitourinary Genitourinary ED: Denies dysuria, hematuria or urinary frequency Musculoskeletal Musculoskeletal: Denies arthralgias or myalgias Integumentary Denies abscess or rash Neurologic Neurologic: Denies headache(s) or weakness Psychiatric Psychiatric: Denies anxiety, depression, suicidal ideation or suicidal thoughts Endocrine Endocrinology: Denies polydipsia, polyphagia or polyuria Allergic/Immunologic Allergic/Immunologic ED: Denies mouth swelling, tongue swelling or urticaria EXAM Physical Exam Const Vital Signs: 10/26/24 18:05 10/26/24 18:37 10/26/24 19:59 Temperature 97.7 F L Temperature Source Temporal Pulse Rate 103 H Respiratory Rate 24 H Respiratory Effort Short of Breath Respiratory Pattern Tachypnea Blood Pressure 205/88 H 143/94 H Blood Pressure Mean 127 110 Pulse Ox 97 Oxygen Delivery Method Room Air Oxygen Flow Rate (L/min) 10/26/24 20:14 10/26/24 21:06 10/26/24 21:39 Temperature 98.1 F Temperature Source Oral Pulse Rate 93 90 92 Respiratory Rate 16 23 H 20 H Respiratory Effort Respiratory Pattern Blood Pressure 148/78 H 162/79 H 176/85 H Blood Pressure Mean 101 106 115 Pulse Ox 99 99 95 Oxygen Delivery Method Nasal Cannula Nasal Cannula Room Air Oxygen Flow Rate (L/min) 2 99 10/26/24 22:05 10/26/24 22:35 10/26/24 23:13 Temperature 98.1 F Temperature Source Pulse Rate 89 93 Respiratory Rate 18 16 Respiratory Effort Respiratory Pattern Blood Pressure 180/93 H 156/81 H Blood Pressure Mean 122 106 Pulse Ox 96 93 96 Oxygen Delivery Method Nasal Cannula Nasal Cannula Oxygen Flow Rate (L/min) 2 2 Positive well nourished, well developed and obese General Appearance ED: well developed and NAD Nutritional Appearance: obese HEENT Reports normocephalic, head/scalp atraumatic and moist mucous membranes Eyes PERRL and EOMs intact bilaterally Neck no lymphadenopathy, supple and no JVD Resp Resp Narrative: Patient with conversational dyspnea. No breath sounds anterioly on left. rales bilaterally at bases. Auscultation: rales bilateral lower Cardio regular rate, regular rhythm and no murmurs GI normal to inspection, nondistended, normoactive bowel sounds and non-tender Palpation: soft Back/Spine no CVA tenderness and normal ROM Extremity General Extremety ED: Yes edema General Extremity: edema bilateral lower extremity Details: moderate Neuro oriented x3 and CN's II-XII intact bilaterally Sensorium / Orientation: alert Motor Exam: strength 5/5 throughout Psych mental status grossly normal Mood & Affect: Negative for depressed or tearful Skin no rashes or lesions noted and no wounds MDM MDM MDM Narrative Medical decision making narrative: Differential diagnosis includes but not limited to pneumonia pleural effusion congestive heart failure pulmonary hypertension pneumothorax pulmonary embolism acute coronary syndrome bronchospasm Clinically the patient has Rales. He has lower extremity edema and has not been using his CPAP device due to it being broken. His EKG is a sinus rhythm at a rate of 93 bpm. No independent or potation of the chest x-ray is no definitive pneumonia no obvious pneumothorax no pleural effusion. White count is 10.6 hemoglobin 15.2 platelet count of 276. Sodium of 140 potassium 3.2 glucose 183 troponin 10 BNP is 12.5 creatinine 0.96. None of this explains the patient's conversational dyspnea his decreased lung sounds on the left where his rales. Therefore CTA of the chest was obtained. Upon my review there appears to be a large pneumothorax on the left with possible tension component. There are no other CT chest to compare this to. Patient is still dyspneic. We placed him on supplemental oxygen. I reviewed the case with our on-call surgeon. I proceeded to place a left-sided pigtail catheter under sterile Seldinger technique. Body habitus makes this procedure difficult but I was able to palpate and advance the needle to the rib and then roll over the rib into the pleural space resulting in return of air. This was sutured into place and he was put on wall suction at -20. Patient notes he seems to be breathing better. I do not appreciate an air leak. On-call surgery called back and noted that radiology had read the CT. It would appear that the concern is that this was a large left upper lobe bleb the bottom of which could incompletely be seen on a CT of the abdomen/pelvis in May of last year. We are going to obtain a repeat chest CT the patient has received Ancef and Lasix. Plan is admission in the hospital Repeat chest CT on my review shows the blood to be smaller radiology feels that it is unchanged. I see that the pigtail catheter is not in the pleural space but is in the soft tissue most likely got pulled out when he brought his arm down in the subcutaneous tissue pulled it out. He is making good urinary output at this time. The catheter was removed Band-Aid applied. He is going to be admitted into the ICU tonight with a chest tube set up next to the patient in case of an emergency with repeat chest x-ray in the morning. Dr. Oquendo has been updated and reviewed the repeat CT together. History & Record Review Discussion w/independent historian: Patient Lab Data Attestation: I reviewed the patient's lab results. Labs: Laboratory Results - last 24 hr 10/26/24 18:36 WBC 10.6 RBC 5.03 Hgb 15.2 Hct 44.1 MCV 87.7 MCH 30.2 MCHC 34.5 RDW Std Deviation 42.1 RDW Coeff of Dany 13.2 Plt Count 276 MPV 8.4 Immature Gran % (Auto) 1.400 H Neut % (Auto) 86.9 H Lymph % (Auto) 6.6 L [place] % (Auto) 4.9 Eos % (Auto) 0.0 Baso % (Auto) 0.2 Absolute Neuts (auto) 9.2 H Absolute Lymphs (auto) 0.70 L Nucleated RBC % 0 Sodium 140 Potassium 3.2 L Chloride 104 Carbon Dioxide 29.0 Anion Gap 8 BUN 18 Creatinine 0.96 Estim Creat Clear Calc 110.59 Est GFR (MDRD) Af Amer 105 Est GFR (MDRD) Non-Af 87 BUN/Creatinine Ratio 18.7 Glucose 183 H Calcium 9.2 Total Bilirubin 0.60 Direct Bilirubin 0.21 AST 32 ALT 67 H Alkaline Phosphatase 67 Troponin I High Sens 10 B-Natriuretic Peptide 12.5 Total Protein 7.0 Albumin 3.5 Globulin 3.5 Radiography Diagnostic Testing: Clinical Impression(s) from Imaging Studies Chest X-Ray 10/26/24 18:40 IMPRESSION: No radiographic evidence of acute cardiopulmonary disease. Electronically Signed: Salazar Armstrong MD at 19:29 EST , Chest CTA 10/26/24 19:25 IMPRESSION: No PE. Large left upper lobe bleb. Electronically Signed: Salazar Armstrong MD at 20:20 EST , Chest CT 10/26/24 22:04 IMPRESSION: 1. Left chest tube is extrathoracic, tip abuts the lateral fourth rib does not extend into the thorax. 2. No change in the large left upper lobe bleb/bulla. N.B. : Gian Granado DO, confirmed on 10/26/2024 22:40:01 (ET) that the referring physician received the results and does not require a verbal communication. Electronically Signed: Jenifer Sheehan MD at 22:43 EST Reading Location ID and State: [facility] / [place] Tel , Service support , ADDENDUM: 10/26/24 2250 IMPRESSION: 1. Left chest tube is extrathoracic, tip abuts the lateral fourth rib does not extend into the thorax. 2. No change in the large left upper lobe bleb/bulla. N.B. : Gian Granado DO, confirmed on 10/26/2024 22:40:01 (ET) that the referring physician received the results and does not require a verbal communication. Electronically Signed: Jenifer Sheehan MD at 22:43 EST , EKG Initial EKG: Attestation: I personally reviewed and interpreted this EKG as follows: Comments: Normal sinus rhythm ventricular rate of 93 bpm Management Discussion w/another healthcare provider: Hospitalist (Dr Ng), [employer] Teacher (Dr Oquendo) and Radiologist Discharge Plan Dx/Rx/DC Orders Clinical Impression: Acute dyspnea, BMI greater than 40, Bilateral edema of lower extremity Disposition Disposition: Acute Care Hospital [facility]
[2024-10-26 19:08] LABS: AST(SGOT) 32 U/L (15-37); Alanine Aminotransfer ALT/SGPT 67 U/L (16-61); Albumin, Serum 3.5 g/dL (3.2-5.0); Alkaline Phosphatase 67 U/L (45-117); Anion Gap 8 (5-15); BUN 18 mg/dL (7-18); BUN/Creat Ratio 18.7 RATIO (10-20); Bilirubin, Direct 0.21 mg/dL (0.00-0.30); Calcium,Total 9.2 mg/dL (8.5-10.1); Chloride 104 mmol/L (98-107); Creatinine, Serum 0.96 mg/dL (0.70-1.30); EST Glomerular Filtration Rate 87 mL/min (>60); Est Glom Filt Rate - Afr Amer 105 mL/min (>60); Estimated Creatinine Clearance 110.59 ml/min; Globulin 3.5 g/dL (2.2-4.2); Glucose 183 mg/dL (74-106); Potassium 3.2 mmol/L (3.5-5.1); Sodium Level 140 mmol/L (136-145); Troponin-I HS 10 pg/mL (3.0-78.0)
[2024-10-26 19:14] LABS: BNP,B-Type NATRIURETIC PEPTIDE 12.5 pg/mL (0-100)
--- NOTE | 2024-10-26 19:25 | CT_ITS ---
STUDY: CTA Chest WO/W Contrast Injection 10/26/2024 8:18 PM REASON FOR EXAM: Male, 54 years old. dyspnea pulmonary embolism TECHNIQUE: The examination was performed with the intravenous administration of IV 100mL Isovue-370 contrast material. Post-processing of the angiographic images was performed, with axial imaging and 3D reconstruction. MIPS images were obtained. Individualized dose optimization techniques were used for this CT. COMPARISON: CT 05/09/2024. FINDINGS: There are degenerative changes of the shoulders. There is no pneumothorax. There is no demonstrated pleural abnormality. Pulmonary emphysema. Large left upper lobe bleb. This is stable since the prior CT. There are calcifications of the coronary arteries. Normal mediastinum. Normal hilar regions. Normal pulmonary arteries. Normal aorta arch and descending thoracic aorta. There are multi-level degenerative changes of the thoracic spine. There are no acute findings of the upper abdomen. CT/CTA Chest W/WO Contrast IMPRESSION: No PE. Large left upper lobe bleb. Electronically Signed: Salazar Armstrong MD at 20:20 EST ,
[2024-10-26] MEDS: Furosemide 100 MG/10 ML Vial 60 MG IV (21:26)
[2024-10-26] MEDS: Cefazolin 1 GM/50 ML BAG IV (21:26)
--- NOTE | 2024-10-26 22:04 | CT_ITS ---
INDICATION: dyspnea s/p chest tube insertion due to large left bleb found on earlier CT, lasix given also EXAMINATION: CT CHEST WITHOUT CONTRAST - CT Chest W/O Contrast Injection TECHNIQUE: Helically acquired images were obtained of the chest. The protocol utilizes one or more of the following dose reduction techniques: automated exposure control, adjustment of mA and/or kV according to patient size,and/or use of iterative reconstruction technique. IV Contrast dosage and agent: None. RADIATION DOSAGE (If Supplied By Facility): CTDIvol = ( 20.15 ) mGy, DLP = ( 709.90 ) mGycm COMPARISON: Prior study dated: Earlier same date FINDINGS: LUNGS: No change in the large bleb in the left upper lobe. No consolidation. Calcified granuloma right lower lobe with adjacent reticular opacities likely scarring. LARGE AIRWAYS: Unremarkable. PLEURA: No pleural effusion. No pneumothorax. MEDIASTINUM: Calcified right hilar lymph nodes. HEART: Not enlarged. CORONARY ARTERIES: Coronary artery calcification is seen. AORTA/VESSELS: No aortic aneurysm. ESOPHAGUS: Unremarkable. UPPER ABDOMEN: No acute findings. BONES/SOFT TISSUES: No acute abnormality. OTHER/LINES: Small caliber chest tube was placed on the left, the tip is external to the thoracic cage, adjacent to the lateral aspect of the fourth/fifth rib, does not extend into the thorax. CT/Chest without Contrast IMPRESSION: 1. Left chest tube is extrathoracic, tip abuts the lateral fourth rib does not extend into the thorax. 2. No change in the large left upper lobe bleb/bulla. N.B. : Gian Granado DO, confirmed on 10/26/2024 22:40:01 (ET) that the referring physician received the results and does not require a verbal communication. Electronically Signed: Jenifer Sheehan MD at 22:43 EST ,
--- NOTE | 2024-10-26 22:15 | PCM.HP.STD ---
[facility] - General General Date of Admission: 10/26/24 Date of Service: 10/26/24 Chief Complaint: SOB and Cough. 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, is a 54 M with a past medical history of morbid obesity; with BMI of 45 this admission, history of fatty liver disease, SONU; on CPAP, history of asthma; on budesonide and prn albuterol, migraine headaches, history of COVID-19, history of testicular cancer; s/p orchiectomy, listed allergy to PCN (?), listed allergy to sulfa (?), GERD; on omeprazole, chronic bilateral LE edema, OA; with muscle spasms on prn ketorolac and prn methocarbamol, recently diagnosed Crohn's disease with ~3-4 scattered areas of inflammation in his bowels and recently diagnosed Acute Bronchitis; treated with oral azithromycin, prednisone and prn albuterol who presents to [facility] ER complaining of worsening SOB and cough in spite of treatment. Mr. Rdyer reports his symptoms began approximately one week prior to admission with ARELLANO that progressed to SOB at rest that was made worse by laying flat. Then last week he went to Urgent Care and was started on azithromycin and prednisone. He then went back to Urgent Care a couple of days later and was noted to hypertensive in the ~200 mmHg range with significant hypoxia in the ~80% range on RA so he was then sent in to the ER for more in-depth evaluation and treatment. He also admits to an increasingly frequent nonproductive cough that seemed to made worse after his CPAP machine recently stopped working. He denies fever, chills, nausea, vomiting, diarrhea, constipation or history of hypertension but he does admit to central chest pressure and increasing LE edema. In the ER he was noted to have CT evidence of ~45% Left anterior upper lobe PTX with a pig-tail catheter placed in the ER with patient stating his SOB and chest pressure were much improved in the setting or recently diagnosed Acute Bronchitis complicated by laboratory evidence of Hypokalemia of 3.2 mmol/L and Hyperglycemia of 183 mg/dL present on admission likely due to recent prednisone and he was then admitted to the PCU for ongoing care for a stay that is expected to extend beyond 2 midnights. [facility] Medical History GERD (gastroesophageal reflux disease) CPAP (continuous positive airway pressure) dependence Sleep apnea Migraines Cancer Fatty liver Heartburn Non-smoker History of stress test Home Medications ?Medication ?Instructions ?Recorded ?Last Taken ?Type albuterol sulfate 90 mcg/actuation 1 puff inhalation Q6H PRN PRN Sob 01/18/15 Unknown History aerosol inhaler (Ventolin HFA) &/Or Wheezing albuterol sulfate 2.5 mg/0.5 mL 2.5 mg inhalation Q20M 10/28/21 Unknown History solution for nebulization omeprazole 20 mg capsule,delayed 40 mg PO DAILY 06/17/24 06/17/24 History release budesonide 3 mg 6 mg (2 x 3 mg) PO QDAY #60 ea 06/23/24 Unknown Rx capsule,delayed,extended release ketorolac 10 mg tablet 10 mg PO 4X/DAY PRN pain 5 days 09/19/24 Unknown Rx #20 tabs methocarbamol 500 mg tablet 1,000 mg (2 x 500 mg) PO 4X/DAY 09/19/24 Unknown Rx PRN Muscle pain/spasm #56 tabs Allergy/AdvReac Type Severity Reaction Status Date / Time Penicillins Allergy Unknown Verified 10/26/24 18:05 Sulfa (Sulfonamide Allergy Unknown Verified 10/26/24 18:05 Antibiotics) Surgical History H/O removal of testicle History of tonsillectomy Social History Smoking Status: Never smoker ROS ROS Narrative Review of Systems: Constitutional: Patient admits to fatigue but denies fever or chills. Eyes: Patient denies changes in vision or discharge from eyes. ENT: Patient denies runny nose, sore throat or ear pain. Resp: Patient admits to SOB and cough. CV: Patient admits to central chest pressure that was better after chest tube as per HPI. GI: Patient denies abdominal pain, nausea, vomiting, diarrhea or constipation. : Patient denies dysuria, hematuria or urinary frequency. MSK: Patient denies arthralgias or myalgias. Skin: Patient denies rash, abscess or jaundice. Psych: Patient denies symptoms of uncontrolled depression or anxiety. Neuro: Patient denies headache, paresthesias or focal neurologic weakness. Allergy: Patient denies lip swelling, tongue swelling or urticaria. Hematology: Patient denies easy bleeding or easy bruisability. Endocrinology: Patient denies polyuria, polydipsia or polyphagia. 14 point ROS otherwise negative except for positives noted above in HPI. Vital Signs Vital Signs Vital Signs: 10/26/24 18:05 10/26/24 18:37 10/26/24 19:59 Temperature 97.7 F L Temperature Source Temporal Pulse Rate 103 H Respiratory Rate 24 H Respiratory Effort Short of Breath Respiratory Pattern Tachypnea Blood Pressure 205/88 H 143/94 H Blood Pressure Mean 127 110 Pulse Ox 97 Oxygen Delivery Method Room Air Oxygen Flow Rate (L/min) 10/26/24 20:14 10/26/24 21:06 10/26/24 21:39 Temperature 98.1 F Temperature Source Oral Pulse Rate 93 90 92 Respiratory Rate 16 23 H 20 H Respiratory Effort Respiratory Pattern Blood Pressure 148/78 H 162/79 H 176/85 H Blood Pressure Mean 101 106 115 Pulse Ox 99 99 95 Oxygen Delivery Method Nasal Cannula Nasal Cannula Room Air Oxygen Flow Rate (L/min) 2 99 Weight Weight: 278 lb 14.4 oz Body Mass Index (BMI) 45.0 Physical Exam Const alert, oriented x3 and no apparent distress Constitutional Narrative: Patient in morbidly obese with Pickwickian phenotype. General Appearance: cooperative HEENT normocephalic, head/scalp atraumatic, hearing grossly normal bilaterally and moist oral mucous membranes Eyes PERRL and EOMs intact bilaterally Neck no lymphadenopathy and supple Resp Resp Narrative: Diminished breath sounds over BON. Cardio regular rate and regular rhythm GI normal to inspection, nondistended, normoactive bowel sounds, soft to palpation, non-tender and non-distended GI Narrative: Morbidly obese. Extremity full ROM Skin Skin Narrative: Patient has no evidence of rash, abscess or jaundice. Neuro oriented x3, CN's II-XII intact bilaterally, moves all extremities and no focal motor deficits Sensorium / Orientation: awake, alert, oriented to person, oriented to place and oriented to time Speech: speech normal Psych affect normal Results Medical Records Data Attestation: I reviewed the patient's medical records Lab / Micro Data Attestation: I reviewed the patient's lab results. 10/27/24 03:55 10/27/24 03:55 Labs: Laboratory Results - last 24 hr 10/26/24 18:36: WBC 10.6, RBC 5.03, Hgb 15.2, Hct 44.1, MCV 87.7, MCH 30.2, MCHC 34.5, RDW Std Deviation 42.1, RDW Coeff of Dany 13.2, Plt Count 276, MPV 8.4, Immature Gran % (Auto) 1.400 H, Neut % (Auto) 86.9 H, Lymph % (Auto) 6.6 L, Burke % (Auto) 4.9, Eos % (Auto) 0.0, Baso % (Auto) 0.2, Absolute Neuts (auto) 9.2 H, Absolute Lymphs (auto) 0.70 L, Nucleated RBC % 0, Sodium 140, Potassium 3.2 L, Chloride 104, Carbon Dioxide 29.0, Anion Gap 8, BUN 18, Creatinine 0.96, Estim Creat Clear Calc 110.59, Est GFR (MDRD) Af Amer 105, Est GFR (MDRD) Non-Af 87, BUN/Creatinine Ratio 18.7, Glucose 183 H, Calcium 9.2, Total Bilirubin 0.60, Direct Bilirubin 0.21, AST 32, ALT 67 H, Alkaline Phosphatase 67, Troponin I High Sens 10, B-Natriuretic Peptide 12.5, Total Protein 7.0, Albumin 3.5, Globulin 3.5 Imaging Radiology Impression Chest X-Ray 10/26/24 18:40 IMPRESSION: No radiographic evidence of acute cardiopulmonary disease. Electronically Signed: Salazar Armstrong MD at 19:29 EST , Chest CTA 10/26/24 19:25 IMPRESSION: No PE. Large left upper lobe bleb. Electronically Signed: Salazar Armstrong MD at 20:20 EST , Assessment & Plan Assessment/Plan (1) Acute pneumothorax: (2) History of bronchitis: (3) Respiratory insufficiency: (4) BMI greater than 40: (5) SONU on CPAP: (6) Hypokalemia: (7) Hyperglycemia, drug-induced: PLAN: Plan 1. Suspected CT evidence of ~45% Left anterior upper lobe PTX with a pig-tail catheter placed in the ER with patient stating his SOB and chest pressure were much improved - Admit to ICU for close observation with chest tube kit at bedside in case emergent chest tube placement in required. Patient currently denies chest pain or SOB. Give acetaminophen prn for [id number] (level 1-5/10) pain or fever. Give morphine IV prn for severe (level 6-10/10) pain. Finally, the general surgeon on-call will see this patient on-rounds in the AM for further recommendations with help appreciated in advance. 2. Recently diagnosed Acute Bronchitis with no signs of acute infection on Chest CT and radiologist reading lesion as a large pulmonary bleb in spite of PTX decreasing to ~35% of previous dimensions complicating #1 - Noted. Follow up imaging ordered to follow trend. 3. Morbid Obesity; with BMI of 45 this admission plus SONU with a recently broken CPAP and chronic bilateral LE edema compounding #1 & #2 - Weight loss will be recommended. Check TSH. This complicates his case and may hamper recovery. 4. Hypokalemia of 3.2 mmol/L present on admission adding to the medical complexity of #1 - #3 - Give supplemental KCl and then recheck level in AM to confirm correction. 5. Hyperglycemia of 183 mg/dL present on admission likely due to recent prednisone - Check HgbA1c. 6. History of asthma; on budesonide and prn albuterol - Stable with no evidence of acute flare at this time. Maintain on current regimen. 7. History of fatty liver disease - Noted. Weight loss will be recommended for this reason too. 8. Migraine headaches - Stable with no evidence of recurrence. 9. History of COVID-19 - Noted. 10. History of testicular cancer; s/p orchiectomy - Stable. 11. Listed allergy to PCN (?) - Noted. 12. Listed allergy to sulfa (?) - Noted. 13. GERD; on omeprazole - Resume PPI as before. 14. OA; with muscle spasms on prn ketorolac and prn methocarbamol - Continue current treatment. 15. Recently diagnosed Crohn's disease with ~3-4 scattered areas of inflammation in his bowels - Noted and apparently stable at this time. 16. DVT prophylaxis - SCD's only with possible emergent need for chest tube placement. Total time: Approximately (but not less than) 75 minutes. Charges/Coding Visit Charges Inpatient E&M: 12061 Init Hosp L3
[2024-10-26] MEDS: Morphine 4 MG/ML Syringe IV (22:27)
[2024-10-26] MEDS: Ondansetron 4 MG/2 ML Vial IV (22:29)
--- NOTE | 2024-10-26 23:36 | NURSING ---
report called to ICU Roya MCDOWELL.
[2024-10-26] MEDS: 0.9% Normal Saline (1000mL) 1,000 ML 70 ML IV (23:38)
[2024-10-27] VITALS (20 sets, daily range): BP systolic 117–176; BP diastolic 46–97; PULSE 73–95; RESP 16–22; TEMP 36.3–37; O2SAT 89–98
[2024-10-27 04:05] LABS: Absolute Lymphocyte Count 1.57 X10^3/uL (0.83-4.51); Absolute Neutrophil Count 7.7 X10^3/uL (2.0-7.7); Basophil# 0.02 X10^3/uL; Basophil% 0.2 % (0-1); Hematocrit 43.6 % (40-54); Hemoglobin 14.7 g/dL (13.0-16.5); Lymphocyte # 1.57 X10^3/ul (0.83-4.51); Lymphocyte % 15.4 % (19-41); Mean Corp Hgb Conc 33.7 g/dL (32-36); Mean Corpuscular Hgb 29.8 pg (27.0-32.0); Mean Corpuscular Volume 88.4 fL (80-94); Mean Platelet Vol. 8.5 fl (6.2-12.0); Monocyte# 0.78 X10^3/uL; Monocyte% 7.7 % (0-10); NRBC Flagged by Analyzer 0 % (0-5); Neutrophil # 7.74 X10^3/uL (2.7-7.7); Platelet Count 269 K/mm3 (150-450); RBC Distribution Width CV 13.3 % (11.6-14.6); RBC Distribution Width SD 43.3 fl (35.1-43.9); Red Blood Count 4.93 M/mm3 (4.6-6.2); White Blood Count 10.2 K/mm3 (4.4-11.0)
[2024-10-27 04:24] LABS: ALB/GLOB Ratio 1.1 RATIO (0.9-2.4); AST(SGOT) 21 U/L (15-37); Alanine Aminotransfer ALT/SGPT 56 U/L (16-61); Albumin, Serum 3.4 g/dL (3.2-5.0); Alkaline Phosphatase 59 U/L (45-117); Anion Gap 5 (5-15); BUN 17 mg/dL (7-18); BUN/Creat Ratio 20.5 RATIO (10-20); Calcium,Total 8.8 mg/dL (8.5-10.1); Chloride 103 mmol/L (98-107); Creatinine, Serum 0.83 mg/dL (0.70-1.30); EST Glomerular Filtration Rate 103 mL/min (>60); Est Glom Filt Rate - Afr Amer 124 mL/min (>60); Estimated Creatinine Clearance 124.68 ml/min; Globulin 3.2 g/dL (2.2-4.2); Glucose 118 mg/dL (74-106); Magnesium 2.2 mg/dL (1.6-2.6); Phosphorus 4.4 mg/dL (2.5-4.9); Protein, Total 6.6 g/dL (6.4-8.2); Sodium Level 140 mmol/L (136-145)
[2024-10-27] MEDS: Morphine 2 MG/ML Syringe IV (05:11)
[2024-10-27] MEDS: Potassium Chloride Oral Tablet 20 MEQ 60 MEQ PO (05:11)
[2024-10-27] MEDS: 0.9% Saline Lock 10 ML Syringe IV (05:12)
[2024-10-27] MEDS: Albuterol 2.5 MG/3 ML VIAL.NEB. INHALATION (05:18)
--- NOTE | 2024-10-27 05:25 | RAD_ITS ---
INDICATION: Left PTX vs Bleb. EXAMINATION/TECHNIQUE: X-RAY - XR Chest 1 View AP portable. 5:18 AM COMPARISON: Prior study dated: 10/26/2024 FINDINGS: LINES/DEVICES: None. LUNGS: No consolidation. Relative lucency at the left upper lung is unchanged corresponds to the CT findings of what is likely a large bulla/bleb. Subtle relative more lucency laterally but no well-defined visceral pleural line. No definite pneumothorax. MEDIASTINUM: Unremarkable. CARDIAC SILHOUETTE: Not enlarged. BONES AND SOFT TISSUES: No acute abnormalities. RAD/Chest 1 View (Portable) IMPRESSION: No acute findings. Stable lucency in the left is presumed large bleb. No definite pneumothorax. Follow-up with right lateral decubitus view may be helpful. Electronically Signed: Jenifer Sheehan MD at 7:11 EST ,
--- NOTE | 2024-10-27 07:07 | PN.HOSP_ITS ---
Reason for Visit Reason for Visit: Diagnoses Hypokalemia (10/26/24) Obstructive sleep apnea (adult) (pediatric) (10/26/24) Other pneumothorax (10/26/24) Other abnormalities of breathing (10/26/24) Hyperglycemia, unspecified (10/26/24) Adverse effect of unspecified drugs, medicaments and biological substances, initial encounter (10/26/24) Personal history of other diseases of the respiratory system (10/26/24) Subjective Subjective Feeling better. Objective Data Objective Data Vital Signs: Vital Signs Temp Pulse Resp BP Pulse Ox O2 Del Method O2 Flow Rate 36.4 C L 88 22 H 136/71 H 92 Nasal Cannula 2 10/27/24 05:54 10/27/24 06:00 10/27/24 06:00 10/27/24 06:00 10/27/24 06:00 10/27/24 06:00 10/27/24 06:00 Oxygen Flow Rate (L/min) 2 Oxygen Delivery Method Nasal Cannula Weight: 120.9 kg Body Mass Index (BMI) 43.0 Intake & Output: Intake and Output for Last 24 Hours 10/25/24 10/26/24 10/27/24 23:59 23:59 23:59 Intake Total 50 / 50 350 / 350 Output Total 251 / 251 Balance 50 / 50 99 / 99 Lab / Micro Data 10/27/24 03:55 10/27/24 03:55 Labs: Laboratory Results - last 24 hr 10/26/24 18:36: WBC 10.6, RBC 5.03, Hgb 15.2, Hct 44.1, MCV 87.7, MCH 30.2, MCHC 34.5, RDW Std Deviation 42.1, RDW Coeff of Dany 13.2, Plt Count 276, MPV 8.4, I mmature Gran % (Auto) 1.400 H, Neut % (Auto) 86.9 H, Lymph % (Auto) 6.6 L, Esmeralda % (Auto) 4.9, Eos % (Auto) 0.0, Baso % (Auto) 0.2, Absolute Neuts (auto) 9.2 H, Absolute Lymphs (auto) 0.70 L, Nucleated RBC % 0, Sodium 140, Potassium 3.2 L, Chloride 104, Carbon Dioxide 29.0, Anion Gap 8, BUN 18, Creatinine 0.96, Estim Creat Clear Calc 110.59, Est GFR (MDRD) Af Amer 105, Est GFR (MDRD) Non-Af 87, BUN/Creatinine Ratio 18.7, Glucose 183 H, Calcium 9.2, Total Bilirubin 0.60, Direct Bilirubin 0.21, AST 32, ALT 67 H, Alkaline Phosphatase 67, Troponin I High Sens 10, B-Natriuretic Peptide 12.5, Total Protein 7.0, Albumin 3.5, Globulin 3.5 10/27/24 03:55: WBC 10.2, RBC 4.93, Hgb 14.7, Hct 43.6, MCV 88.4, MCH 29.8, MCHC 33.7, RDW Std Deviation 43.3, RDW Coeff of Dany 13.3, Plt Count 269, MPV 8.5, Immature Gran % (Auto) 0.700, Neut % (Auto) 76.0 H, Lymph % (Auto) 15.4 L, Esmeralda % (Auto) 7.7, Eos % (Auto) 0.0, Baso % (Auto) 0.2, Absolute Neuts (auto) 7.7, Absolute Lymphs (auto) 1.57, Nucleated RBC % 0, Sodium 140, Potassium 3.0 L, Chloride 103, Carbon Dioxide 32.0, Anion Gap 5, BUN 17, Creatinine 0.83, Estim Creat Clear Calc 124.68, Est GFR (MDRD) Af Amer 124, Est GFR (MDRD) Non-Af 103, BUN/Creatinine Ratio 20.5 H, Glucose 118 H, Calcium 8.8, Phosphorus 4.4, Magnesium 2.2, Total Bilirubin 0.70, AST 21, ALT 56, Alkaline Phosphatase 59, Total Protein 6.6, Albumin 3.4, Globulin 3.2, Albumin/Globulin Ratio 1.1 Radiography Diagnostic Testing: Radiology Impression Chest X-Ray 10/26/24 18:40 IMPRESSION: No radiographic evidence of acute cardiopulmonary disease. Electronically Signed: Salazar Armstrong MD at 19:29 EST Reading Location ID and State: [facility] / [place] , Service support , Chest CTA 10/26/24 19:25 IMPRESSION: No PE. Large left upper lobe bleb. Electronically Signed: Salazar Armstrong MD at 20:20 EST , Chest CT 10/26/24 22:04 IMPRESSION: 1. Left chest tube is extrathoracic, tip abuts the lateral fourth rib does not extend into the thorax. 2. No change in the large left upper lobe bleb/bulla. N.B. : Gian Granado DO, confirmed on 10/26/2024 22:40:01 (ET) that the referring physician received the results and does not require a verbal communication. Electronically Signed: Jenifer Sheehan MD at 22:43 EST , ADDENDUM: 10/26/24 2250 IMPRESSION: 1. Left chest tube is extrathoracic, tip abuts the lateral fourth rib does not extend into the thorax. 2. No change in the large left upper lobe bleb/bulla. N.B. : Gian Granado DO, confirmed on 10/26/2024 22:40:01 (ET) that the referring physician received the results and does not require a verbal communication. Electronically Signed: Jenifer Sheehan MD at 22:43 EST , Physical Exam Const alert and no apparent distress Constitutional Narrative: on room air. HEENT head/scalp atraumatic and moist oral mucous membranes Resp normal respiratory effort and no retractions Auscultation: wheezes Cardio regular rate, regular rhythm, S1 normal heart sound and S2 normal heart sound GI normal to inspection, nondistended, normoactive bowel sounds, soft to palpation, non-tender and non-distended Extremity normal to inspection and full ROM Neuro Sensorium / Orientation: awake and alert Psych affect normal Assessment & Plan Assessment/Plan (1) Acute pneumothorax: PLAN: Ruled out. This is a large bleb. Pulmonary consulted and this appears to have been present previously. Pt life-long non-smoker. His father was a smoker and did have COPD. Pulmonary ordered additional testing (alpha-1 atrypsin) Chest tube attempt fortunately unsuccessful. No further need for chest tube. Follow up with pulmonary as outpt. (2) Dysphagia: PLAN: Coughing with eating. Speech therapy recommending MBSS. To be performed 10/28. (3) Asthma exacerbation: PLAN: Not formally diagnosed. Could certainly have COPD. Continue BDs. Start prednisone. Follow up with pulmonary for formal evaluation. PLAN: Plan Chronic conditions: * obesity class III: complicates care and recovery * SONU: No pressure-support ventilation given the low possibility of this being a PTX. Pt said CPAP is malfunctioning. Will need to follow up with pulm as outpt to remedy this. * Crohn's disease: stable. follow up with GI. Hold budesonide while on prednisone. VTE prophylaxis: LMWH. Charges/Coding Visit Charges Inpatient E&M: 03995 Subs Hosp L2
--- NOTE | 2024-10-27 08:18 | RAD_ITS ---
STUDY: X-RAY CHEST REASON FOR EXAM: Male, 54 years old. F/u chest tube insert/ dislodgement TECHNIQUE: PA and lateral views of the chest. COMPARISON: Comparison is made with prior study generate 22,025 earlier in the day. FINDINGS: EKG electrodes are seen. Small left apical pneumothorax. Stable mild bibasilar atelectasis. Normal size heart. Normal mediastinum and sweetie. Normal visualized pulmonary arteries. Normal visualized aortic arch and descending thoracic aorta. There is a levoscoliosis of the thoracic spine. Normal visualized ribs, clavicles, and shoulders. There is no demonstrated abnormality of the visualized soft tissue structures of the upper abdomen. RAD/Chest PA and Lateral IMPRESSION: Small left apical pneumothorax. Electronically Signed: Maicol Ford MD at 9:46 EST ,
--- NOTE | 2024-10-27 08:19 | EX.PCM.CON.S ---
Assessment & Plan Assessment/Plan (1) Lung bullae: PLAN: Patient is 54-year-old male, asthmatic and obese with no history of tobacco smoking, who presents with large bleb of the left lung. With his acute presentation and initial CT appearance a small bore (8 [place]ib[place]ian) thoracostomy tube was placed into this bleb. The tube was accidentally dislodged by patient himself during CT imaging. He remains clinically stable from a respiratory standpoint this morning. Initial chest x-ray did not show evidence of pneumothorax but radiology recommended lateral view for better sensitivity. I believe this is reasonable and have ordered this study. Additionally, discussed outpatient follow-up with cardiothoracic surgery as patient describes an intent for air travel and I would be concerned the large apical bleb would be at risk for rupture with changes in atmospheric pressure that could lead to an inflight emergency. Will follow-up chest x-ray and patient's respiratory status. Follow-up chest x-ray by radiology is read as showing a small pneumothorax. I certainly discern a difference between this study and patient's earlier study. However, I cannot exclude that the contour seen on the present film is not actually patient's apical bleb. Therefore, recommend following the patient expectantly and repeating chest imaging with x-ray tomorrow. If there is sudden change in status please notify surgery. If they changes per se but does not necessarily merit chest tube placement and would plan for repeat chest CT. Dr. Gordon will be covering in my place tomorrow. Alden Oquendo MD General Surgery Endocrine Surgery Pager: [facility] [address] [place] [address], [facility], [address] [place] [id number] Office: 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 He states that he has been dealing with this issue for some time but that it became progressive last week. He notes some associated cough and congestion. He states he suspected that it was related to his chronic diagnosis of asthma. He further adds that he has experienced some dizziness and lightheadedness. Upon patient's presentation to the emergency department emergency medicine was most concerned for his severely elevated blood pressure and dyspnea. Both chest x-ray and CTA of the chest were ordered. Neither read by radiology was made very quickly and emergency medicine believe they identified a pneumothorax on the left with patient's CT imaging. I was asked to manage the chest tube if placed and agreed. I did pull up the patient's CT imaging and believed identified some rightward shift of the mediastinum indicating tension and agreed with this management. However, checking back a short while later to confirm the radiology agreement I found that radiology suggested that patient's pneumothorax was not a pneumothorax at all but represented a apical bleb. I immediately called to emergency medicine to see if they could abort the planned thoracostomy tube placement but unfortunately caught them just too late in the tube had been placed. We agreed to admit the patient to the hospital on suction and obtain repeat CT imaging of the chest to identify the termination of the tube as a means of guiding further management. I was then notified after CT imaging that patient had accidentally dislodged the tube during the imaging attempt but remained stable from a respiratory standpoint. Patient has visited at bedside hospital day 2 and states that he is about at his baseline. He does note some shortness of breath early in the morning but this responded well to his scheduled breathing treatment. Patient expressly denies any history of smoking. Patient denies any regular air travel or submarine travel, but does note that he is planning to travel via airplane in the next year or so. [facility] Medical History GERD (gastroesophageal reflux disease) CPAP (continuous positive airway pressure) dependence Sleep apnea Migraines Cancer Fatty liver Heartburn Non-smoker History of stress test Home Medications ?Medication ?Instructions ?Recorded ?Last Taken ?Type albuterol sulfate 90 mcg/actuation 1 puff inhalation Q6H PRN PRN Sob 01/18/15 Unknown History aerosol inhaler (Ventolin HFA) &/Or Wheezing albuterol sulfate 2.5 mg/0.5 mL 2.5 mg inhalation Q20M 10/28/21 Unknown History solution for nebulization omeprazole 20 mg capsule,delayed 40 mg PO DAILY 06/17/24 06/17/24 History release budesonide 3 mg 6 mg (2 x 3 mg) PO QDAY #60 ea 06/23/24 Unknown Rx capsule,delayed,extended release ketorolac 10 mg tablet 10 mg PO 4X/DAY PRN pain 5 days 09/19/24 Unknown Rx #20 tabs methocarbamol 500 mg tablet 1,000 mg (2 x 500 mg) PO 4X/DAY 09/19/24 Unknown Rx PRN Muscle pain/spasm #56 tabs Allergy/AdvReac Type Severity Reaction Status Date / Time Penicillins Allergy Unknown Verified 10/26/24 18:05 Sulfa (Sulfonamide Allergy Unknown Verified 10/26/24 18:05 Antibiotics) Surgical History H/O removal of testicle History of tonsillectomy Social History Smoking Status: Never smoker Physical Exam Const alert and no apparent distress Nutritional Appearance: obese Chest Chest Narrative: Patient's left chest wall is examined and there is a bandage in place with crusted blood. There is some minor soft tissue swelling but I palpate no crepitus. Lab / Micro Data 10/27/24 03:55 10/27/24 03:55 Labs: Laboratory Results - last 24 hr 10/26/24 18:36: WBC 10.6, RBC 5.03, Hgb 15.2, Hct 44.1, MCV 87.7, MCH 30.2, MCHC 34.5, RDW Std Deviation 42.1, RDW Coeff of Dany 13.2, Plt Count 276, MPV 8.4, Immature Gran % (Auto) 1.400 H, Neut % (Auto) 86.9 H, Lymph % (Auto) 6.6 L, [place] % (Auto) 4.9, Eos % (Auto) 0.0, Baso % (Auto) 0.2, Absolute Neuts (auto) 9.2 H, Absolute Lymphs (auto) 0.70 L, Nucleated RBC % 0, Sodium 140, Potassium 3.2 L, Chloride 104, Carbon Dioxide 29.0, Anion Gap 8, BUN 18, Creatinine 0.96, Estim Creat Clear Calc 110.59, Est GFR (MDRD) Af Amer 105, Est GFR (MDRD) Non-Af 87, BUN/Creatinine Ratio 18.7, Glucose 183 H, Calcium 9.2, Total Bilirubin 0.60, Direct Bilirubin 0.21, AST 32, ALT 67 H, Alkaline Phosphatase 67, Troponin I High Sens 10, B-Natriuretic Peptide 12.5, Total Protein 7.0, Albumin 3.5, Globulin 3.5 10/27/24 03:55: WBC 10.2, RBC 4.93, Hgb 14.7, Hct 43.6, MCV 88.4, MCH 29.8, MCHC 33.7, RDW Std Deviation 43.3, RDW Coeff of Dany 13.3, Plt Count 269, MPV 8.5, Immature Gran % (Auto) 0.700, Neut % (Auto) 76.0 H, Lymph % (Auto) 15.4 L, [place] % (Auto) 7.7, Eos % (Auto) 0.0, Baso % (Auto) 0.2, Absolute Neuts (auto) 7.7, Absolute Lymphs (auto) 1.57, Nucleated RBC % 0, Sodium 140, Potassium 3.0 L, Chloride 103, Carbon Dioxide 32.0, Anion Gap 5, BUN 17, Creatinine 0.83, Estim Creat Clear Calc 124.68, Est GFR (MDRD) Af Amer 124, Est GFR (MDRD) Non-Af 103, BUN/Creatinine Ratio 20.5 H, Glucose 118 H, Calcium 8.8, Phosphorus 4.4, Magnesium 2.2, Total Bilirubin 0.70, AST 21, ALT 56, Alkaline Phosphatase 59, Total Protein 6.6, Albumin 3.4, Globulin 3.2, Albumin/Globulin Ratio 1.1 Imaging Radiology Impression Chest X-Ray 10/26/24 18:40 IMPRESSION: No radiographic evidence of acute cardiopulmonary disease. Electronically Signed: Salazar Armstrong MD at 19:29 EST , Chest CTA 10/26/24 19:25 IMPRESSION: No PE. Large left upper lobe bleb. Electronically Signed: Salazar Armstrong MD at 20:20 EST , Chest CT 10/26/24 22:04 IMPRESSION: 1. Left chest tube is extrathoracic, tip abuts the lateral fourth rib does not extend into the thorax. 2. No change in the large left upper lobe bleb/bulla. N.B. : Gian Granado DO, confirmed on 10/26/2024 22:40:01 (ET) that the referring physician received the results and does not require a verbal communication. Electronically Signed: Jenifer Sheehan MD at 22:43 EST Reading Location ID and State: [employer] / [place] Tel , Service support , ADDENDUM: 10/26/24 2250 IMPRESSION: 1. Left chest tube is extrathoracic, tip abuts the lateral fourth rib does not extend into the thorax. 2. No change in the large left upper lobe bleb/bulla. N.B. : Gian Granado DO, confirmed on 10/26/2024 22:40:01 (ET) that the referring physician received the results and does not require a verbal communication. Electronically Signed: Jenifer Sheehan MD at 22:43 EST Reading Location ID and State: [place] / [place] Tel , Service support , Chest X-Ray 10/27/24 05:25 IMPRESSION: No acute findings. Stable lucency in the left is presumed large bleb. No definite pneumothorax. Follow-up with right lateral decubitus view may be helpful. Electronically Signed: Jenifre Sheehan MD at 7:11 EST Reading Location ID and State: [email or web address] / [place] Tel , Service support , Charges/Coding Visit Charges Inpatient E&M: 00878 Subs Hosp L2
[2024-10-27] MEDS: Pantoprazole Sodium 40 MG Tablet PO (08:38)
[2024-10-27] MEDS: Budesonide 3 MG CAPSULE.EC 6 MG PO (08:38)
--- NOTE | 2024-10-27 08:49 | CON.PCM.CC_ITS ---
Assessment & Plan Assessment/Plan (1) Lung bullae: PLAN: Plan RECOMMENDATIONS: 1. Wean from supplemental oxygen. 2. Echocardiogram is pending. 3. Follow-up chest imaging as ordered. 4. Continue as needed bronchodilator therapy. 5. Encourage incentive spirometer use and mobilize patient as tolerated. IMPRESSIONS: 1. Shortness of breath and cough/left upper lobe bullae identified on imaging/self-reported history of asthma The patient presented to the hospital with concern for URI with shortness of breath and cough, having been referred from a local urgent care went uncontrolled hypertension and hypoxia. The patient has a self-reported history of asthma, which appears suboptimally managed on an outpatient basis. Upon completion of his chest imaging, there was initial concern for a possible pneumothorax. However, it appears that the patient has a large left upper lobe bullae, which was partially visualized on CT imaging of the abdomen and pelvis dating back to 2020. Given the chronicity of these findings, I think it is far more likely that the patient's presenting symptoms may be the consequence of either poorly controlled asthma or hypertension. General surgery is currently following with plans to repeat AP lateral chest x-ray today. The patient is otherwise stable from a respiratory perspective. The exact etiology for the patient's bullous disease is not entirely clear, given his non-smoking history. Although exceedingly unlikely, we will plan to check alpha 1 antitrypsin and HIV. Ultimately, I do believe the patient would benefit from a referral to thoracic surgery following discharge for further evaluation. In the interim, okay to continue as needed bronchodilator therapy. 2. History of obstructive sleep apnea The patient reported that his current CPAP machine is no longer functional and he is in need of establishing care with a provider to obtain a new prescription for equipment. 3. Morbid obesity/recently diagnosed Crohn's disease/GERD Complicates care, management, recovery and prognosis. Continue home medications as indicated. This note was generated with [employer] dictation software. It may contain incorrect words, spelling, and punctuation that were not noted in checking the note before signing. HPI Consult Data Date of Consult: 10/27/24 HPI Narrative Reason for Consultation: Left upper lobe bullae HPI Narrative: The patient is a 54-year-old male, with a history as outlined below, who presented to the emergency department on October 26 for shortness of breath and cough. The patient reported that he was diagnosed with asthma 10 to 12 years ago and has struggled with symptom relief. He is not currently followed by a tar heel. He does not appear to be on a maintenance inhaler regimen. He is unable to identify any inciting or precipitating factors that lead to decompensation in his breathing quality. In addition to the aforementioned, the patient reported that he has a history of sleep apnea and was previously prescribed CPAP therapy. However, his machine is no longer functional and he was told that he needed to be seen by a provider to obtain a new prescription for new equipment. The patient initially felt that his symptoms were likely related to an upper respiratory infection. He was evaluated at a local urgent care clinic and was noted to be hypertensive and hypoxemic. The patient does not utilize supplemental oxygen at his baseline. The patient is a lifelong non- smoker. 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 On presentation to the emergency department, the patient was documented to be afebrile, but was hypertensive with a presenting blood pressure of 205/88 mmHg. He was initially documented to be saturating 97% on room air. Laboratory evaluation revealed a normal white blood cell count. Chemistry profile was notable for a potassium of 3.2. Plain film chest x-ray was unremarkable. Subsequent CTA chest demonstrated no evidence for pulmonary embolism, but did reveal a sizable left upper lobe bullae. Initially, there was concern for a pneumothorax. An attempt was made to place a chest tube. However, the chest tube did not appear to be intrathoracic on follow-up chest imaging. COVID, influenza and RSV PCR's were negative. The patient was subsequently admitted to the hospital for observation. [facility] Medical History GERD (gastroesophageal reflux disease) CPAP (continuous positive airway pressure) dependence Sleep apnea Migraines Cancer Fatty liver Heartburn Non-smoker History of stress test Home Medications ?Medication ?Instructions ?Recorded ?Last Taken ?Type albuterol sulfate 90 mcg/actuation 1 puff inhalation Q6H PRN PRN Sob 01/18/15 Unknown History aerosol inhaler (Ventolin HFA) &/Or Wheezing albuterol sulfate 2.5 mg/0.5 mL 2.5 mg inhalation Q20M 10/28/21 Unknown History solution for nebulization omeprazole 20 mg capsule,delayed 40 mg PO DAILY 06/17/24 06/17/24 History release budesonide 3 mg 6 mg (2 x 3 mg) PO QDAY #60 ea 06/23/24 Unknown Rx capsule,delayed,extended release ketorolac 10 mg tablet 10 mg PO 4X/DAY PRN pain 5 days 09/19/24 Unknown Rx #20 tabs methocarbamol 500 mg tablet 1,000 mg (2 x 500 mg) PO 4X/DAY 09/19/24 Unknown Rx PRN Muscle pain/spasm #56 tabs Allergy/AdvReac Type Severity Reaction Status Date / Time Penicillins Allergy Unknown Verified 10/26/24 18:05 Sulfa (Sulfonamide Allergy Unknown Verified 10/26/24 18:05 Antibiotics) Surgical History H/O removal of testicle History of tonsillectomy Social History Smoking Status: Never smoker ROS ROS Narrative 10 systems were reviewed with pertinent positives as noted in the HPI above. Physical Exam Const alert, oriented x3 and no apparent distress Constitutional Narrative: Morbidly obese. General Appearance: cooperative HEENT normocephalic, head/scalp atraumatic and moist oral mucous membranes Eyes PERRL, EOMs intact bilaterally and conjunctivae normal Neck supple General: trachea midline Chest inspection of chest normal Resp normal respiratory effort Auscultation: Negative for rales, rhonchi or wheezes Cardio regular rate and regular rhythm GI normal to inspection, nondistended, normoactive bowel sounds Extremity no clubbing, cyanosis or edema Skin no rashes or lesions noted Neuro CN's II-XII intact bilaterally, moves all extremities and no focal motor deficits Psych cooperative and affect normal Lab / Micro Data 10/27/24 03:55 10/27/24 03:55 Labs: Laboratory Results - last 24 hr 10/26/24 18:36: WBC 10.6, RBC 5.03, Hgb 15.2, Hct 44.1, MCV 87.7, MCH 30.2, MCHC 34.5, RDW Std Deviation 42.1, RDW Coeff of Dany 13.2, Plt Count 276, MPV 8.4, I mmature Gran % (Auto) 1.400 H, Neut % (Auto) 86.9 H, Lymph % (Auto) 6.6 L, [place] % (Auto) 4.9, Eos % (Auto) 0.0, Baso % (Auto) 0.2, Absolute Neuts (auto) 9.2 H, Absolute Lymphs (auto) 0.70 L, Nucleated RBC % 0, Sodium 140, Potassium 3.2 L, Chloride 104, Carbon Dioxide 29.0, Anion Gap 8, BUN 18, Creatinine 0.96, Estim Creat Clear Calc 110.59, Est GFR (MDRD) Af Amer 105, Est GFR (MDRD) Non-Af 87, BUN/Creatinine Ratio 18.7, Glucose 183 H, Calcium 9.2, Total Bilirubin 0.60, Direct Bilirubin 0.21, AST 32, ALT 67 H, Alkaline Phosphatase 67, Troponin I High Sens 10, B-Natriuretic Peptide 12.5, Total Protein 7.0, Albumin 3.5, Globulin 3.5 10/27/24 03:55: WBC 10.2, RBC 4.93, Hgb 14.7, Hct 43.6, MCV 88.4, MCH 29.8, MCHC 33.7, RDW Std Deviation 43.3, RDW Coeff of Dany 13.3, Plt Count 269, MPV 8.5, Immature Gran % (Auto) 0.700, Neut % (Auto) 76.0 H, Lymph % (Auto) 15.4 L, [place] % (Auto) 7.7, Eos % (Auto) 0.0, Baso % (Auto) 0.2, Absolute Neuts (auto) 7.7, Absolute Lymphs (auto) 1.57, Nucleated RBC % 0, Sodium 140, Potassium 3.0 L, Chloride 103, Carbon Dioxide 32.0, Anion Gap 5, BUN 17, Creatinine 0.83, Estim Creat Clear Calc 124.68, Est GFR (MDRD) Af Amer 124, Est GFR (MDRD) Non-Af 103, BUN/Creatinine Ratio 20.5 H, Glucose 118 H, Calcium 8.8, Phosphorus 4.4, Magnesium 2.2, Total Bilirubin 0.70, AST 21, ALT 56, Alkaline Phosphatase 59, Total Protein 6.6, Albumin 3.4, Globulin 3.2, Albumin/Globulin Ratio 1.1 Imaging Radiology Impression Chest X-Ray 10/26/24 18:40 IMPRESSION: No radiographic evidence of acute cardiopulmonary disease. Electronically Signed: Salazar Armstrong MD at 19:29 EST , Chest CTA 10/26/24 19:25 IMPRESSION: No PE. Large left upper lobe bleb. Electronically Signed: Salazar Armstrong MD at 20:20 EST , Chest CT 10/26/24 22:04 IMPRESSION: 1. Left chest tube is extrathoracic, tip abuts the lateral fourth rib does not extend into the thorax. 2. No change in the large left upper lobe bleb/bulla. N.B. : Gian Granado DO, confirmed on 10/26/2024 22:40:01 (ET) that the referring physician received the results and does not require a verbal communication. Electronically Signed: Jenifer Sheehan MD at 22:43 EST Reading Location ID and State: [facility] / [place] Tel , Service support , ADDENDUM: 10/26/24 2250 IMPRESSION: 1. Left chest tube is extrathoracic, tip abuts the lateral fourth rib does not extend into the thorax. 2. No change in the large left upper lobe bleb/bulla. N.B. : Gian Granado DO, confirmed on 10/26/2024 22:40:01 (ET) that the referring physician received the results and does not require a verbal communication. Electronically Signed: Jenifer Sheehan MD at 22:43 EST , Chest X-Ray 10/27/24 05:25 IMPRESSION: No acute findings. Stable lucency in the left is presumed large bleb. No definite pneumothorax. Follow-up with right lateral decubitus view may be helpful. Electronically Signed: Jenifer Sheehan MD at 7:11 EST , Charges/Coding Visit Charges Inpatient E&M: 02710 Init Hosp L3
--- NOTE | 2024-10-27 10:20 | CASEMGMT ---
JEREMIAS RODRIGUEZ Assessment Face to Face with patient for initial transition planning/care coordination assessment. JEREMIAS RODRIGUEZ introduced self and role at [facility], pt voices understanding. Pt is A&Ox4 and is resting comfortably in bed and is calm. Care providers, pharmacy, and demographics verified. Admitting dx: Left PTX LACE Strata: 3 PCP: Sherif Spann Specialists: Friend (GI). Pt states that he plans to follow up with [facility] after DC. Pt reports that he plans to schedule a sleep study for potential CPAP needs and states that he is comfortable scheduling his own appt. Preferred Pharmacy: [facility] Insurance: [employer] Prescription Benefit: Yes LNOK: Zohreh Ramirez (Friend) Living Arrangements: Pt lives with a roommate in a ground level apartment with one step to enter ADLs/IADLs: States independent Transportation: Self. Pt states that he drove to [facility] and plans to drive himself back home and denies concerns currently DME: Denies current DME. Pt is currently requiring additional oxygen and may qualify for home oxygen use. A verbal list of local in-network DME companies were provided to the pt at this time. Pt prefers [facility]. HHC/SNF: Denies history or needs Pt?s goal: Return home Plan: Home, follow for oxygen needs. Pt denies the need for HH, OP Tx, or CCN. However, current 6-click score is 18 and therapy evaluations are pending. Pt states that he feels safe returning home with his roommate at the time of DC. Pt denies further concerns at this time. CM to follow. Iliana Myles RN, CM
[2024-10-27 10:56] LABS: HIV - WCH Non-Reactive (Nonreactive)
[2024-10-27] MEDS: Acetaminophen 325 MG Tablet 650 MG PO (12:50)
[2024-10-27] MEDS: Ketorolac 10 MG Tablet PO (12:51)
[2024-10-27] MEDS: predniSONE 20 MG Tablet 40 MG PO (12:52)
[2024-10-27] MEDS: Ipratropium/Albuterol Sulfate 3 ML AMPUL.NEB INHALATION ×2 (14:10→19:15)
[2024-10-27] MEDS: guaiFENesin/Codeine 5 ML UDC 10 ML PO (20:16)
[2024-10-28] VITALS (8 sets, daily range): BP systolic 151–168; BP diastolic 79–93; PULSE 79–98; RESP 16–20; TEMP 36.6–36.8; O2SAT 91–97
--- NOTE | 2024-10-28 02:07 | CPS ---
This ROLL THREADER OPERATOR dicussed CPAP with patient. Patient stated he did not wish to have a hospital cpap unit setup. Patient stated he wanted to wear oxygen instead.
--- NOTE | 2024-10-28 03:35 | RAD_ITS ---
EXAM: XR CHEST, 2 VIEWS CLINICAL INDICATION: Follow-up apical blood versus concern for PTX TECHNIQUE: Frontal and lateral views of the chest. COMPARISON: 10/27/2024. FINDINGS: LUNGS AND PLEURAL SPACES: Allowing for differences in technique there does not appear to be a significant change in the small left-sided pneumothorax. No effusion. HEART: Unremarkable. Cardiac silhouette not enlarged. MEDIASTINUM: Central airways and mediastinal contour are unremarkable. BONES/JOINTS: Unremarkable. No acute fracture. SOFT TISSUES: Unremarkable. RAD/Chest PA and Lateral IMPRESSION: Allowing for differences in technique there does not appear to be a significant change in the small left-sided pneumothorax. Electronically Signed: Alden Arita MD at 4:54 EST ,
[2024-10-28 04:45] LABS: Magnesium 2.5 mg/dL (1.6-2.6); Phosphorus 3.8 mg/dL (2.5-4.9)
[2024-10-28 05:07] LABS: Alpha Antitrypsin Serum 139 mg/dL (101-187)
[2024-10-28 05:54] LABS: Anion Gap 5 (5-15); BUN 14 mg/dL (7-18); BUN/Creat Ratio 18.3 RATIO (10-20); Chloride 102 mmol/L (98-107); Creatinine, Serum 0.76 mg/dL (0.70-1.30); EST Glomerular Filtration Rate 113 mL/min (>60); Est Glom Filt Rate - Afr Amer 137 mL/min (>60); Estimated Creatinine Clearance 136.17 ml/min; Glucose 106 mg/dL (74-106); Potassium 3.4 mmol/L (3.5-5.1); Sodium Level 138 mmol/L (136-145)
--- NOTE | 2024-10-28 06:58 | PN.HOSP_ITS ---
Reason for Visit Reason for Visit: Diagnoses Hypokalemia (10/26/24) Obstructive sleep apnea (adult) (pediatric) (10/26/24) Emphysema, unspecified (10/26/24) Unspecified asthma with (acute) exacerbation (10/26/24) Other pneumothorax (10/26/24) Other abnormalities of breathing (10/26/24) Dysphagia, unspecified (10/26/24) Hyperglycemia, unspecified (10/26/24) Adverse effect of unspecified drugs, medicaments and biological substances, initial encounter (10/26/24) Personal history of other diseases of the respiratory system (10/26/24) Subjective Subjective Feeling well. No new complaints. Objective Data Objective Data Vital Signs: Vital Signs Temp Pulse Resp BP Pulse Ox O2 Del Method O2 Flow Rate 36.7 C 79 16 151/89 H 96 Nasal Cannula 2 10/28/24 02:00 10/28/24 02:00 10/28/24 02:00 10/28/24 02:00 10/28/24 02:00 10/28/24 02:00 10/28/24 02:00 Oxygen Flow Rate (L/min) 2 Oxygen Delivery Method Nasal Cannula Weight: 120.9 kg Body Mass Index (BMI) 43.0 Intake & Output: Intake and Output for Last 24 Hours 10/26/24 10/27/24 10/28/24 23:59 23:59 23:59 Intake Total 50 / 50 1350 / 1350 Output Total 1026 / 1026 550 / 550 Balance 50 / 50 324 / 324 -550 / -550 Lab / Micro Data 10/27/24 03:55 10/28/24 04:15 Labs: Laboratory Results - last 24 hr 10/27/24 09:45: [id number]-3-[id number] 139, HIV 1&2 Antibody Non-Reactive 10/28/24 04:15: Sodium 138, Potassium 3.4 L, Chloride 102, Carbon Dioxide 31.0, Anion Gap 5, BUN 14, Creatinine 0.76, Estim Creat Clear Calc 136.17, Est GFR (MDRD) Af Amer 137, Est GFR (MDRD) Non-Af 113, BUN/Creatinine Ratio 18.3, Glucose 106, Calcium 9.0, Phosphorus 3.8, Magnesium 2.5 Radiography Diagnostic Testing: Radiology Impression Chest X-Ray 10/27/24 05:25 IMPRESSION: No acute findings. Stable lucency in the left is presumed large bleb. No definite pneumothorax. Follow-up with right lateral decubitus view may be helpful. Electronically Signed: Jenifer Sheehan MD at 7:11 EST , Chest X-Ray 10/27/24 08:18 IMPRESSION: Small left apical pneumothorax. Electronically Signed: Maicol Ford MD at 9:46 EST , Chest X-Ray 10/28/24 03:35 IMPRESSION: Allowing for differences in technique there does not appear to be a significant change in the small left-sided pneumothorax. Electronically Signed: Alden Arita MD at 4:54 EST , Physical Exam Const alert and no apparent distress HEENT head/scalp atraumatic and moist oral mucous membranes Resp normal respiratory effort and no retractions Auscultation: wheezes Cardio regular rate, regular rhythm, S1 normal heart sound and S2 normal heart sound GI normal to inspection, nondistended, normoactive bowel sounds, soft to palpation, non-tender and non-distended Extremity normal to inspection and full ROM Assessment & Plan Assessment/Plan (1) Acute pneumothorax: PLAN: Iatrogenic from placing chest tube in large bleb. Seen on lateral CXR. CXR showed no change in PTX. This is a large bleb. Pulmonary consulted and this appears to have been present previously. Pt life-long non-smoker. His father was a smoker and did have COPD. Pulmonary ordered additional testing (alpha-1 atrypsin) Chest tube attempt fortunately unsuccessful. No further need for chest tube. Follow up with pulmonary as outpt and CT surgery for evaluation of the bleb. (2) Dysphagia: PLAN: Coughing fit while eating. Speech therapy recommending MBSS. To be performed 10/28. (3) Asthma exacerbation: PLAN: Not formally diagnosed. Could certainly have COPD. Continue BDs. Start prednisone. Follow up with pulmonary for formal evaluation. PLAN: Plan Chronic conditions: * obesity class III: complicates care and recovery * SONU: No pressure-support ventilation given the low possibility of this being a PTX. Pt said CPAP is malfunctioning. Will need to follow up with pulm as outpt to remedy this. * Crohn's disease: stable. follow up with GI. Hold budesonide while on prednisone. VTE prophylaxis: LMWH. Charges/Coding Visit Charges Inpatient E&M: 22598 Subs Hosp L2
[2024-10-28] MEDS: Ipratropium/Albuterol Sulfate 3 ML AMPUL.NEB INHALATION ×3 (07:04→19:25)
--- NOTE | 2024-10-28 07:26 | PCM.PN.SRG ---
Subjective Subjective Patient evaluated resting comfortably in bed. He notes shortness of breath has improved. He states he continues to cough, however he believes this may be from his recent diagnosis of bronchitis that has not resolved. He states he had to have oxygen in place overnight and when he was napping in the chair yesterday, otherwise no oxygen is needed. He notes the previous chest tube site is tender. CXR from this morning shows no change in the small left-sided pneumothorax. Objective Data Objective Data Vital Signs: Vital Signs Temp Pulse Resp BP Pulse Ox O2 Del Method O2 Flow Rate 98.1 F 80 18 151/89 H 91 Room Air 2 10/28/24 02:00 10/28/24 07:04 10/28/24 07:04 10/28/24 02:00 10/28/24 07:04 10/28/24 07:04 10/28/24 02:00 Oxygen Flow Rate (L/min) 2 Oxygen Delivery Method Room Air Weight: 266 lb 8.622 oz Body Mass Index (BMI) 43.0 Intake & Output: Intake and Output for Last 24 Hours 10/26/24 10/27/24 10/28/24 23:59 23:59 23:59 Intake Total 50 / 50 1350 / 1350 Output Total 1026 / 1026 550 / 550 Balance 50 / 50 324 / 324 -550 / -550 Lab / Micro Data 10/27/24 03:55 10/28/24 04:15 Labs: Laboratory Results - last 24 hr 10/27/24 09:45: Oljpr-6-Dyoljaaxysl 139, HIV 1&2 Antibody Non-Reactive 10/28/24 04:15: Sodium 138, Potassium 3.4 L, Chloride 102, Carbon Dioxide 31.0, Anion Gap 5, BUN 14, Creatinine 0.76, Estim Creat Clear Calc 136.17, Est GFR (MDRD) Af Amer 137, Est GFR (MDRD) Non-Af 113, BUN/Creatinine Ratio 18.3, Glucose 106, Calcium 9.0, Phosphorus 3.8, Magnesium 2.5 Radiography Diagnostic Testing: Radiology Impression Chest X-Ray 10/27/24 05:25 IMPRESSION: No acute findings. Stable lucency in the left is presumed large bleb. No definite pneumothorax. Follow-up with right lateral decubitus view may be helpful. Electronically Signed: Jenifer Sheehan MD at 7:11 EST , Chest X-Ray 10/27/24 08:18 IMPRESSION: Small left apical pneumothorax. Electronically Signed: Maicol Ford MD at 9:46 EST , Chest X-Ray 10/28/24 03:35 IMPRESSION: Allowing for differences in technique there does not appear to be a significant change in the small left-sided pneumothorax. Electronically Signed: Alden Arita MD at 4:54 EST , Physical Exam Resp Resp Narrative: Right upper and lower chest- wheezing noted with auscultation Left anterior apex- no breath sounds noted. Left posterior apex- shallow breath sounds noted. Remaining lung seems clear with notable breath sounds Assessment & Plan Assessment/Plan (1) Lung bullae: PLAN: I am following this patient in conjunction with Dr. Gordon in Dr. Oquendo's absence. She will independently evaluate this patient. CXR reviewed Patient seems to be continuing to recover from bronchitis Recommend cardiothoracic referral after discharge No indication at this time to replace a chest tube Would like to monitor patient's pulmonary status another night Repeat CXR in the morning If no decrease in respiratory status while awake, okay for discharge tomorrow We will continue to monitor this patient Charges/Coding Visit Charges Inpatient E&M: 41950 Subs Hosp L1
[2024-10-28] MEDS: predniSONE 20 MG Tablet 40 MG PO (08:16)
[2024-10-28] MEDS: Pantoprazole Sodium 40 MG Tablet PO (08:16)
[2024-10-28] MEDS: Acetaminophen 325 MG Tablet 650 MG PO (08:31)
--- NOTE | 2024-10-28 08:38 | ST.MBS ---
Modified Barium Swallow Patient Information Study Date: 10/28/24 Study Time: 12:50 Direct Billable Minutes: 88 Total Minutes procedure & reportin Diagnosis: Dysphagia R13.10 Referring Physician: Chay Hernandez Reason for Referral: Objectively assess swallow function, assess risk for aspiration, and determine recommendations for least restrictive diet textures and compensatory strategies to improve safety of swallow. Medical History: 54-year-old male presented to [facility] ED 10/26/24 for SOB and cough.? The patient reported that he was diagnosed with asthma 10-12 years ago and has struggled with symptom relief. Per ED, the patient initially felt that his symptoms were likely related to URI and was evaluated at a local urgent care clinic with findings of hypertension and hypoxemic.? The patient does not utilize supplemental oxygen at his baseline. SPO2 WNL on R/A at ED. Laboratory evaluation revealed a normal white blood cell count.? Plain film chest x-ray was unremarkable.? Subsequent CTA chest demonstrated no evidence for pulmonary embolism, but did reveal a sizable left upper lobe bullae.? Initially, there was concern for a pneumothorax.? An attempt was made to place a chest tube.? However, the chest tube did not appear to be intrathoracic on follow-up chest imaging.? COVID, influenza and RSV PCR's were negative.? The patient was subsequently admitted to the hospital for observation. Patient referred to ST for dysphagia evaluation following morning rounds with IDT, d/t patient reports coughing with solids and liquids, requesting a clear liquid diet. BSE completed 10/28/2024 w/ treatment diagnosis of mild oropharyngeal dysphagia w/ concerns for esophageal component and recommendations for minced and moist diet / thin liquids w/ plan for MBSS in upcoming sessions. PMH: GERD - EGD and colonoscopy w/ Dr. Ramos [facility] 06/2024, CPAP, Sleep apnea, Migraines, Cancer, Fatty liver, Heartburn, Non-smoker, History of stress test. Current Diet Ordered: Minced and moist textures / Thin liquids Dentition: Natural Teeth and Missing Teeth Mental Status: WNL Respiratory Status: Oxygenating on Room Air Penetration-Aspiration Scale Penetration-Aspiration Scale: OBJECTIVE ASSESSMENT OF SWALLOW FUNCTION (QUANTITATIVE ? PER TRIAL): PENETRATION / ASPIRATION SCALE (TVAAREZ): 1 = does not enter airway 2 = enters airway/above vocal folds/ejected 3 = enters airway/above vocal folds/not ejected 4 = enters airway/contacts vocal folds/ejected 5 = enters airway/contacts vocal folds/not ejected 6 = enters airway/below vocal folds/ejected 7 = enters airway/below vocal folds/not ejected despite effort 8 = enters airway/below vocal folds/no effort VIDEOFLOROSCOPIC SCALE SCORE (TAVAREZ): Grade I = aspiration of material that has penetrated into the laryngeal vestibule, intact cough reflex Grade II = aspiration < 10 % of the bolus, intact cough reflex Grade III = aspiration of < 10 % of the bolus, reduced cough reflex or aspiration of > 10 % of the bolus, intact cough reflex Grade IV = aspiration of > 10 % of the bolus, reduced cough reflex Penetration-Aspiration Scale Score Thin Liquid via teaspoon: Result: 1= does not enter airway Thin Liquid via large single sip: cup: Result: 1= does not enter airway [place] Thick Liquid via large single sip: cup: Result: 3= enters airways/above vocal folds/not ejected Pudding via teaspoon: Result: 1= does not enter airway Comment: Esophageal screen - Retention of barium in middle esophagus. / Cookie: Result: 1= does not enter airway Comment: Esophageal screen - Retention of barium in middle and lower esophagus. Thin Liquid via single sip: straw: Result: 1= does not enter airway Comment: Esophageal screen - Liquid wash cleared a majority of retention of barium from previous trials. Thin Liquid via sequential sips:straw: Result: 1= does not enter airway Oral Phase Labial Seal: Interlabial escape, no progression to anterior lip Tongue Control During Bolus Hold: Posterior escape of greater than half of bolus Bolus Preparation/Mastication: Timely and efficient chewing and mashing Bolus Transport/Lingual Motion: Delayed initiation of tongue motion Oral Residue: Residue collection on oral structures Pharyngeal Phase Initiation of Pharyngeal Swallow: Bolus head in pyriforms Soft Palate Elevation: Trace column of contrast/air between soft palate and pharyngeal wall Laryngeal Elevation: Partial superior movement thyroid cart/partial apprx aryt-epig petiole Anterior Hyoid Excursion: Partial anterior movement Epiglottic Movement: Complete inversion Laryngeal Vestibule Closure at Height of Swallow: Incomplete; narrow column of air/contrast in laryngeal vestibule Pharyngeal Stripping Wave: Present - diminished Pharyngoesophageal Segment Opening: Parital distension and partial duration; parital obstruction of flow Tongue Base Retraction: Narrow column of contrast between tongue base & post. pharyngeal wall Pharyngeal Residue: Collection of residue within or on pharyngeal structures Esophageal Phase Esophageal Clearance: Esophageal retention Diagnosis/Impression Diagnosis: Mild oropharyngeal dysphagia R13.12; Esophageal dysphagia R13.14 Impression: The oral phase is primarily marked by... -Mildly decreased bolus control w/ posterior loss of liquids to the pyriforms prior to swallow onset. -Mild oral residues, which fully cleared w/ independent use of a second swallow as needed. The pharyngeal phase is primarily marked by... -Mildly decreased pharyngeal motility due to decreased pharyngeal stripping wave, TB retraction, and reduced UES opening/duration. Multiple swallows effectively cleared majority of pharyngeal residues; however, trace to mild residues remained in pyriforms even after double swallows. -Decreased laryngeal elevation and anterior hyoid excursion with laryngeal penetration of nectar/mildly thick liquids, which did not fully eject after the swallow; however, reflexive coughing fully cleared nectar/mildly thick residues from the laryngeal vestibule. No aspiration observed during the study.- The esophageal phase is primarily marked by... -Retention of pudding in middle esophagus and cookie in middle and lower esophagus, which mostly cleared with liquid wash.- Recommendations Diet: Mechanical Soft Textures (Minced and Moist Textures - IDDSI Level 5) and Thin Liquids Compensatory Strategies: Small Bites, Small Sips, Slow Rate, Multiple Swallows, Alternate bites/solids and sips/liquids (1 sip after every 1-2 bites) and Sitting upright (60min after meals) Supervision: Distant Supervision Recommend Repeat Modified Barium Swallow: TBD Need for Skilled Speech Therapy Services: Yes Comment: -Train the patient in use of strategies to decrease risk for aspiration and reflux aspiration. -Ongoing assessment of diet tolerance of recommended textures. Ok to advance diet to Easy to Chew textures if pt requests diet advancement. Currently, pt prefers Minced and Moist textures - IDDSI Level 5 due to ease of swallowing. -Train the patient in oropharyngeal exercise program to promote improved pharyngeal motility, airway closure, and UES opening/duration (Kendra, effortful, [place], Shaker). Recommended Referrals: GI Consult Education Completed: 1. Described result of evaluation., 2. Pt understands evaluation & agrees with goals and treatment plan. and 7. Pt requires further education on strategies & risks. Status Active ST Patient: Active Contact Information [facility] Speech Therapy:: Tatum Bennett M.A. [facility]? Speech-Language Pathologist?? [facility] [address] [place] [address]? [email or web address]?? [phone]
--- NOTE | 2024-10-28 09:25 | CASEMGMT ---
Per ICU rounds, pt is to have a swallow study completed today. Pt will be staying one more day for a repeat chest XRAY in the morning. Pt was cleared by PT, see note. Pt 6-Click score is 24 and pt still states that he feels safe returning home with his roommate/friend at the time of DC. CM to follow for potential OP needs.
--- NOTE | 2024-10-28 09:33 | PN.CC_ITS ---
Assessment & Plan Assessment/Plan (1) Lung bullae: PLAN: Plan RECOMMENDATIONS: 1. Continue as needed bronchodilator therapy. 2. Recommend follow-up with cardiothoracic surgery at [facility] after discharge. 3. Encourage incentive spirometer use and mobilize patient as tolerated. IMPRESSIONS: 1. Shortness of breath and cough/left upper lobe bullae identified on imaging/self-reported history of asthma The patient presented to the hospital with concern for URI with shortness of breath and cough, having been referred from a local urgent care went uncontrolled hypertension and hypoxia. The patient has a self-reported history of asthma, which appears suboptimally managed on an outpatient basis. Upon completion of his chest imaging, there was initial concern for a possible pneumothorax. However, it appears that the patient has a large left upper lobe bullae, which was partially visualized on CT imaging of the abdomen and pelvis dating back to 2020. Given the chronicity of these findings, I think it is far more likely that the patient's presenting symptoms may be the consequence of either poorly controlled asthma or hypertension. General surgery is currently following to assist with medical management. The patient is otherwise stable from a respiratory perspective. The exact etiology for the patient's bullous disease is not entirely clear, given his non-smoking history. HIV testing was negative with alpha 1 antitrypsin screening pending. Ultimately, I do believe the patient would benefit from a referral to thoracic surgery following discharge for further evaluation. In the interim, okay to continue as needed bronchodilator therapy. 2. History of obstructive sleep apnea The patient reported that his current CPAP machine is no longer functional and he is in need of establishing care with a provider to obtain a new prescription for equipment. Recommend outpatient pulmonary follow-up with discharge. 3. Morbid obesity/recently diagnosed Crohn's disease/GERD Complicates care, management, recovery and prognosis. Continue home medications as indicated. This note was generated with [employer] dictation software. It may contain incorrect words, spelling, and punctuation that were not noted in checking the note before signing. Subjective Subjective The patient was seen and examined at the bedside this morning. Events from the last 24 hours have been reviewed. The patient is currently afebrile, hemodynamically stable and maintaining appropriate oxygen saturations on room air. Repeat chest imaging from this morning was largely unchanged from yesterday. The patient reported that he has been breathing comfortably. Objective Data Objective Data The patient's most recent lab work, culture data and imaging studies have all been personally reviewed. Vital Signs: Vital Signs Temp Pulse Resp BP Pulse Ox O2 Del Method O2 Flow Rate 98.0 F 89 18 160/93 H 95 Room Air 2 10/28/24 08:00 10/28/24 08:00 10/28/24 08:00 10/28/24 08:00 10/28/24 08:00 10/28/24 08:15 10/28/24 02:00 Oxygen Flow Rate (L/min) 2 Oxygen Delivery Method Room Air Weight: 266 lb 8.622 oz Body Mass Index (BMI) 43.0 Intake & Output: Intake and Output for Last 24 Hours 10/26/24 10/27/24 10/28/24 23:59 23:59 23:59 Intake Total 50 / 50 1350 / 1350 Output Total 1026 / 1026 550 / 550 Balance 50 / 50 324 / 324 -550 / -550 Lab / Micro Data Attestation: I reviewed the patient's lab results. 10/27/24 03:55 10/28/24 04:15 Labs: Laboratory Results - last 24 hr 10/27/24 09:45: Hhwxn-1-Fsxfaekxiar 139, HIV 1&2 Antibody Non-Reactive 10/28/24 04:15: Sodium 138, Potassium 3.4 L, Chloride 102, Carbon Dioxide 31.0, Anion Gap 5, BUN 14, Creatinine 0.76, Estim Creat Clear Calc 136.17, Est GFR (MDRD) Af Amer 137, Est GFR (MDRD) Non-Af 113, BUN/Creatinine Ratio 18.3, Glucose 106, Calcium 9.0, Phosphorus 3.8, Magnesium 2.5 Radiography Diagnostic Testing: Radiology Impression Chest X-Ray 10/27/24 08:18 IMPRESSION: Small left apical pneumothorax. Electronically Signed: Maicol Ford MD at 9:46 EST , Chest X-Ray 10/28/24 03:35 IMPRESSION: Allowing for differences in technique there does not appear to be a significant change in the small left-sided pneumothorax. Electronically Signed: Alden Arita MD at 4:54 EST , Physical Exam Const alert, oriented x3 and no apparent distress Constitutional Narrative: Morbidly obese. General Appearance: cooperative HEENT normocephalic, head/scalp atraumatic and moist oral mucous membranes Eyes PERRL, EOMs intact bilaterally and conjunctivae normal Neck supple General: trachea midline Chest inspection of chest normal Resp normal respiratory effort Auscultation: Negative for rales, rhonchi or wheezes Cardio regular rate and regular rhythm GI normal to inspection, nondistended, normoactive bowel sounds Extremity no clubbing, cyanosis or edema Skin no rashes or lesions noted Neuro CN's II-XII intact bilaterally, moves all extremities and no focal motor deficits Psych cooperative and affect normal Charges/Coding Visit Charges Inpatient E&M: 37844 Subs Hosp L2
[2024-10-28] MEDS: guaiFENesin/Codeine 5 ML UDC 10 ML PO ×2 (10:05→22:10)
--- NOTE | 2024-10-28 10:10 | CASEMGMT ---
Addendum entered by Rogelio Myles 10/28/24 15:17: TC to [facility]. [facility] states they can accept the pt referral and can see the pt on Nov 06 @ 1100. RN CM to pt room and pt states that he is agreeable to this. DC information updated with appt dates, times, and addresses. Pt denies further concerns at this time. Original Note: Dr. Padilla states to this RN CM that the pt requires a f/u appt with [facility] prior to a sleep study being scheduled. Pt states that he does not have a preference on the time of day. Dr. Padilla states to schedule an appt for the earliest time possible, even if it will be with a RN MATERNAL CHILD. TC to [facility] and appt scheduled for Nov 28 @ 0915 with Kay Brumfield CNP. DC paperwork updated. Pt updated and states agreeable to appt time. Dr. Padilla also requests a referral to be made to [facility]. TC to the Medical [facility]. [facility] states that they require office notes, testing, and referral with Dx faxed to [phone]. Information and paperwork faxed at this time. Awaiting return response.
[2024-10-28] MEDS: hydrALAZINE 20 MG/ML Vial 10 MG IV (20:58)
[2024-10-29] VITALS (14 sets, daily range): BP systolic 145–165; BP diastolic 78–103; PULSE 85–104; RESP 18–24; TEMP 36.6–36.8; O2SAT 92–98; BMI 42.5
[2024-10-29] MEDS: 0.9% Saline Lock 10 ML Syringe IV ×5 (02:53→21:33)
[2024-10-29] MEDS: hydrALAZINE 20 MG/ML Vial 10 MG IV (02:53)
[2024-10-29] MEDS: Albuterol 2.5 MG/3 ML VIAL.NEB. INHALATION ×2 (04:24→08:45)
[2024-10-29] MEDS: Morphine 2 MG/ML Syringe IV ×2 (05:31→21:32)
--- NOTE | 2024-10-29 06:00 | RAD_ITS ---
We are attempting to reach an attending provider to discuss findings. An addendum with communication details will be sent when the communication is complete. EXAM: XR CHEST, 2 VIEWS CLINICAL INDICATION: left pneumothorax TECHNIQUE: Frontal and lateral views of the chest. COMPARISON: 10/28/2024. FINDINGS: LUNGS AND PLEURAL SPACES: Compared with previous examination there is significant increase in the left-sided pneumothorax which now extends down to the left costophrenic sulcus. This measures approximately 25% based on the Carrillo method. No effusion. HEART: Unremarkable. Cardiac silhouette not enlarged. MEDIASTINUM: Central airways and mediastinal contour are unremarkable. BONES/JOINTS: Unremarkable. No acute fracture. SOFT TISSUES: Unremarkable. RAD/Chest PA and Lateral IMPRESSION: Compared with previous examination there is significant increase in the left-sided pneumothorax which now extends down to the left costophrenic sulcus and may measure up to 25% of the volume of the left hemithorax. Electronically Signed: Alden Arita MD at 4:25 EST ,
--- NOTE | 2024-10-29 07:06 | PN.HOSP_ITS ---
Reason for Visit Reason for Visit: Diagnoses Hypokalemia (10/26/24) Obstructive sleep apnea (adult) (pediatric) (10/26/24) Emphysema, unspecified (10/26/24) Unspecified asthma with (acute) exacerbation (10/26/24) Other pneumothorax (10/26/24) Other abnormalities of breathing (10/26/24) Dysphagia, unspecified (10/26/24) Hyperglycemia, unspecified (10/26/24) Adverse effect of unspecified drugs, medicaments and biological substances, initial encounter (10/26/24) Personal history of other diseases of the respiratory system (10/26/24) Subjective Subjective Increased left chest pain. Objective Data Objective Data Vital Signs: Vital Signs Temp Pulse Resp BP Pulse Ox O2 Del Method O2 Flow Rate 36.6 C 85 24 H 165/82 H 95 Room Air 2 10/29/24 02:00 10/29/24 04:24 10/29/24 04:24 10/29/24 02:53 10/29/24 02:00 10/29/24 02:00 10/28/24 02:00 Oxygen Flow Rate (L/min) 2 Oxygen Delivery Method Room Air Weight: 119.4 kg Body Mass Index (BMI) 42.5 Intake & Output: Intake and Output for Last 24 Hours 10/27/24 10/28/24 10/29/24 23:59 23:59 23:59 Intake Total 1350 / 1350 Output Total 1026 / 1026 1700 / 1700 Balance 324 / 324 -1700 / -1700 Lab / Micro Data 10/27/24 03:55 10/28/24 04:15 Radiography Diagnostic Testing: Radiology Impression Chest X-Ray 10/29/24 06:00 IMPRESSION: Compared with previous examination there is significant increase in the left-sided pneumothorax which now extends down to the left costophrenic sulcus and may measure up to 25% of the volume of the left hemithorax. Electronically Signed: Alden Arita MD at 4:25 EST , ADDENDUM: 10/29/24 9043 IMPRESSION: Compared with previous examination there is significant increase in the left-sided pneumothorax which now extends down to the left costophrenic sulcus and may measure up to 25% of the volume of the left hemithorax. N.B. : The above Results were Read Back by Alden Arita MD to Ines Myles RN, and understanding confirmed on 10/29/2024 04:26:10 (ET). Electronically Signed: Alden Arita MD at 4:25 EST , Physical Exam Const Constitutional Narrative: on room air. No respiratory distress. No conversational dypsnea. HEENT head/scalp atraumatic and moist oral mucous membranes Resp normal respiratory effort and no retractions Resp Narrative: clear anteriorly. Cardio regular rate, regular rhythm, S1 normal heart sound and S2 normal heart sound Neuro Sensorium / Orientation: awake and alert Psych affect normal Assessment & Plan Assessment/Plan (1) Acute pneumothorax: PLAN: Iatrogenic from placing chest tube in large bleb. Seen on lateral CXR. CXR showed no change in PTX. This is a large bleb. Pulmonary consulted and this appears to have been present previously. Pt life-long non-smoker. His father was a smoker and did have COPD. Pulmonary ordered additional testing (alpha-1 atrypsin) Chest tube attempt fortunately unsuccessful. No further need for chest tube. Follow up with pulmonary as outpt and CT surgery for evaluation of the bleb. Pt states he has a follow up appt with CTS next . Follow up CXR shows that the PTX is bigger. Up to 25%. CT chest ordered (formal read pending), shows his bled but with surrounding PTX. (2) Dysphagia: PLAN: Coughing fit while eating. MBS on 10/28. ST recommending mechanical soft. Small bites. Small sips. Multiple swallows. (3) Asthma exacerbation: PLAN: Not formally diagnosed. Could certainly have COPD. Continue BDs. Start prednisone. Follow up with pulmonary for formal evaluation. PLAN: Plan Chronic conditions: * obesity class III: complicates care and recovery * SONU: No pressure-support ventilation given the low possibility of this being a PTX. Pt said CPAP is malfunctioning. Will need to follow up with pulm as outpt to remedy this. * Crohn's disease: stable. follow up with GI. Hold budesonide while on prednisone. VTE prophylaxis: LMWH. Charges/Coding Visit Charges Inpatient E&M: 64975 Subs Hosp L2
--- NOTE | 2024-10-29 07:23 | CT_ITS ---
STUDY: CT CHEST WITH CONTRAST REASON FOR EXAM: Male, 54 years old. Left pneumothorax RADIATION DOSAGE (If Supplied By Facility): CTDIvol = ( 17.43 ) mGy, DLP = ( 802.15 ) mGycm TECHNIQUE: Transaxial imaging was performed following intravenous administration of IV 100mL Isovue-370. Multiplanar coronal and sagittal images were reformatted. Individualized dose optimization techniques were used for this CT. COMPARISON: Comparison is made with prior CT scan of the chest dated October 26, 2024 and prior chest radiograph dated 1999 FINDINGS: CHEST There is an approximately 10-15% predominantly left apical pneumothorax extending to the lateral aspect of the lingular segment of the left upper lobe. Persistent bleb in the left lung apex as compared to prior study dated October 26, 2024. Focal atelectasis at the posterior medial segment of the left lower lobe. There are calcifications of the coronary arteries. Normal mediastinum. Normal hilar regions. Normal unenhanced pulmonary arteries. Normal aorta arch and descending thoracic aorta. There are multi-level degenerative changes of the thoracic spine. Fatty infiltration of the liver. CT/Chest WITH Contrast IMPRESSION: Persistent bleb in the left lung apex with new pneumothorax measuring approximately 10-15% as compared to prior studies. Electronically Signed: Maicol Ford MD at 9:16 EST ,
[2024-10-29] MEDS: guaiFENesin/Codeine 5 ML UDC 10 ML PO (07:56)
[2024-10-29] MEDS: predniSONE 20 MG Tablet 40 MG PO (07:57)
[2024-10-29] MEDS: Pantoprazole Sodium 40 MG Tablet PO (07:57)
--- NOTE | 2024-10-29 08:01 | PCM.PN.SRG ---
Subjective Subjective Patient evaluated resting comfortably in bed. He notes over night he had a sudden onset of chest pain. It felt like someone was sitting on his chest. He noted telling his night nurse, who reached out to Dr. Rutledge. CXR was obtained sooner and demonstrated an increase of pneumothorax to 25%. Patient is on oxygen via nasal canula during bedside evaluation. he notes receiving pain medication for the chest pain which has helped. He notes some shortness of breath. Objective Data Objective Data Vital Signs: Vital Signs Temp Pulse Resp BP Pulse Ox O2 Del Method O2 Flow Rate 97.8 F 99 18 155/84 H 94 Room Air 2 10/29/24 07:53 10/29/24 07:53 10/29/24 07:53 10/29/24 07:53 10/29/24 07:57 10/29/24 07:57 10/28/24 02:00 Oxygen Flow Rate (L/min) 2 Oxygen Delivery Method Room Air Weight: 263 lb 3.711 oz Body Mass Index (BMI) 42.5 Intake & Output: Intake and Output for Last 24 Hours 10/27/24 10/28/24 10/29/24 23:59 23:59 23:59 Intake Total 1350 / 1350 Output Total 1026 / 1026 1700 / 1700 Balance 324 / 324 -1700 / -1700 Lab / Micro Data 10/27/24 03:55 10/28/24 04:15 Radiography Diagnostic Testing: Radiology Impression Chest X-Ray 10/29/24 06:00 IMPRESSION: Compared with previous examination there is significant increase in the left-sided pneumothorax which now extends down to the left costophrenic sulcus and may measure up to 25% of the volume of the left hemithorax. Electronically Signed: Alden Arita MD at 4:25 EST , ADDENDUM: 10/29/24 6987 IMPRESSION: Compared with previous examination there is significant increase in the left-sided pneumothorax which now extends down to the left costophrenic sulcus and may measure up to 25% of the volume of the left hemithorax. N.B. : The above Results were Read Back by Alden Arita MD to Ines Myles RN, and understanding confirmed on 10/29/2024 04:26:10 (ET). Electronically Signed: Alden Arita MD at 4:25 EST , Physical Exam Resp Resp Narrative: Right chest- wheezing with auscultation Left chest- no breath sounds in the apex. Diminished breath sounds lateral aspect of the chest Assessment & Plan Assessment/Plan (1) Acute pneumothorax: PLAN: I am following this patient in conjunction with Dr. Oquendo. He has independently evaluated this patient. Change in symptoms over night Plan to order STAT Chest CT to evaluate if true increase in pneumo If pneumothorax present, plan to place chest tube Patient will need to see cardiothoracic sooner We will continue to monitor patient Charges/Coding Visit Charges Inpatient E&M: 23186 Subs Hosp L1
--- NOTE | 2024-10-29 08:06 | PCM.PN.INT ---
Assessment & Plan Assessment/Plan (1) Lung bullae: PLAN: Plan RECOMMENDATIONS: 1. Continue as needed bronchodilator therapy. 2. Proceed with chest tube placement. 3. Tentative plans for transfer to [facility] for thoracic surgery involvement. IMPRESSIONS: 1. Shortness of breath and cough/left upper lobe bullae complicated by pneumothorax The patient presented to the hospital with concern for URI with shortness of breath and cough, having been referred from a local urgent care went uncontrolled hypertension and hypoxia. The patient has a self-reported history of asthma, which appears suboptimally managed on an outpatient basis. Upon completion of his chest imaging, there was initial concern for a possible pneumothorax. However, it appears that the patient has a large left upper lobe bullae, which was partially visualized on CT imaging of the abdomen and pelvis dating back to 2020. In the emergency department, a small bore pleural catheter was placed, but ultimately dislodged. The patient was initially stable for several days, but then developed radiographic evidence of a pneumothorax, which was confirmed on repeat CT imaging this morning. Therefore, plan to proceed with chest tube placement. Given the nature of his bullous disease, the case was discussed with cardiothoracic surgery at [facility], who is in agreement to transfer the patient to their facility, should surgical intervention be required. The patient is otherwise stable from a respiratory perspective. The exact etiology for the patient's bullous disease is not entirely clear, given his non-smoking history. 2. History of obstructive sleep apnea The patient reported that his current CPAP machine is no longer functional and he is in need of establishing care with a provider to obtain a new prescription for equipment. Recommend outpatient pulmonary follow-up with discharge. 3. Morbid obesity/recently diagnosed Crohn's disease/GERD Complicates care, management, recovery and prognosis. Continue home medications as indicated. This note was generated with [employer] dictation software. It may contain incorrect words, spelling, and punctuation that were not noted in checking the note before signing. Subjective Subjective The patient was seen and examined at the bedside this morning. Events from the last 24 hours have been reviewed. The patient is currently afebrile, hemodynamically stable and maintaining appropriate oxygen saturations on room air. Repeat chest x-ray from this morning demonstrated interval findings concerning for worsening pneumothorax. Therefore, stat CT chest was obtained, which did confirm the presence of a pneumothorax surrounding the previously noted upper lobe bullae. In conjunction with general surgery, there are plans to proceed with chest tube placement this morning. I did call and speak personally with Dr. White of cardiothoracic surgery at [facility]. The patient's case was discussed with him. He was in agreement to transfer the patient to their institution, she had the pneumothorax not resolved with tube thoracotomy, as surgical intervention would be required. These findings along with the plan was discussed with the patient. He was in agreement to proceed. Objective Data Objective Data The patient's most recent lab work, culture data and imaging studies have all been personally reviewed. Vital Signs: Vital Signs Temp Pulse Resp BP Pulse Ox O2 Del Method O2 Flow Rate 97.8 F 99 18 155/84 H 94 Room Air 2 10/29/24 07:53 10/29/24 07:53 10/29/24 07:53 10/29/24 07:53 10/29/24 07:57 10/29/24 07:57 10/28/24 02:00 Oxygen Flow Rate (L/min) 2 Oxygen Delivery Method Room Air Weight: 263 lb 3.711 oz Body Mass Index (BMI) 42.5 Intake & Output: Intake and Output for Last 24 Hours 10/27/24 10/28/24 10/29/24 23:59 23:59 23:59 Intake Total 1350 / 1350 Output Total 1026 / 1026 1700 / 1700 Balance 324 / 324 -1700 / -1700 Lab / Micro Data Attestation: I reviewed the patient's lab results. 10/27/24 03:55 10/28/24 04:15 Labs: Laboratory Results - last 24 hr 10/27/24 09:45: Gejlw-5-Macuuyyijxa 139, HIV 1&2 Antibody Non-Reactive 10/28/24 04:15: Sodium 138, Potassium 3.4 L, Chloride 102, Carbon Dioxide 31.0, Anion Gap 5, BUN 14, Creatinine 0.76, Estim Creat Clear Calc 136.17, Est GFR (MDRD) Af Amer 137, Est GFR (MDRD) Non-Af 113, BUN/Creatinine Ratio 18.3, Glucose 106, Calcium 9.0, Phosphorus 3.8, Magnesium 2.5 Radiography Diagnostic Testing: Radiology Impression Chest X-Ray 10/29/24 06:00 IMPRESSION: Compared with previous examination there is significant increase in the left-sided pneumothorax which now extends down to the left costophrenic sulcus and may measure up to 25% of the volume of the left hemithorax. Electronically Signed: Alden Arita MD at 4:25 EST , ADDENDUM: 10/29/24 0433 IMPRESSION: Compared with previous examination there is significant increase in the left-sided pneumothorax which now extends down to the left costophrenic sulcus and may measure up to 25% of the volume of the left hemithorax. N.B. : The above Results were Read Back by Alden Arita MD to Ines Myles RN, and understanding confirmed on 10/29/2024 04:26:10 (ET). Electronically Signed: Alden Arita MD at 4:25 EST , Physical Exam Const alert, oriented x3 and no apparent distress Constitutional Narrative: Morbidly obese. General Appearance: cooperative HEENT normocephalic, head/scalp atraumatic and moist oral mucous membranes Eyes PERRL, EOMs intact bilaterally and conjunctivae normal Neck supple General: trachea midline Chest inspection of chest normal Resp normal respiratory effort Auscultation: wheezes and diminished lung sounds; Negative for rales or rhonchi Cardio regular rate and regular rhythm GI normal to inspection, nondistended, normoactive bowel sounds Extremity no clubbing, cyanosis or edema Skin no rashes or lesions noted Neuro CN's II-XII intact bilaterally, moves all extremities and no focal motor deficits Psych cooperative and affect normal Charges/Coding Visit Charges Inpatient E&M: 10147 Subs Hosp L2
--- NOTE | 2024-10-29 10:00 | CASEMGMT ---
Insurance review for hospitals In-network with [facility] insurance if transfer is recommended is as follows: [facility], [facility], [place], [facility], [facility], [facility], , [place], [facility], and [place]. Stephanie Mason, Discharge Planning Asst.
[2024-10-29] MEDS: Ensure Plus High Protein 120 ML LIQUID PO ×2 (10:48→16:54)
--- NOTE | 2024-10-29 12:35 | NURSING ---
Dr. Padilla and Dr. Oquendo at bedside to place chest tube
--- NOTE | 2024-10-29 13:03 | RAD_ITS ---
EXAM: XR CHEST, 1 VIEW CLINICAL INDICATION: chest tube placement TECHNIQUE: Frontal view of the chest. COMPARISON: 10/29/24 FINDINGS: LUNGS AND PLEURAL SPACES: Focal airspace disease at the left lower lobe, more conspicuous than on the prior study. Consider atelectasis versus infiltrate given lower lung volumes. No pneumothorax. No effusion. HEART: Unremarkable. Cardiac silhouette not enlarged. MEDIASTINUM: Central airways and mediastinal contour are unremarkable. BONES/JOINTS: Bones are unchanged. No acute fracture. SOFT TISSUES: Unremarkable. RAD/Chest 1 View (Portable) IMPRESSION: Focal airspace disease at the left lower lobe, more conspicuous than on the prior study. Consider atelectasis versus infiltrate given lower lung volumes. Electronically Signed: Darrell Mcdaniels MD at 14:52 EST ,
--- NOTE | 2024-10-29 13:09 | CASEMGMT ---
RN CM NOTE: Tatum HOBBS, recommending OP GI C/S and asks that this be put in pt's transfer paperwork to [facility]. Dr Hernandez made aware. Jana GOLDENN RN CM
[2024-10-29] MEDS: Ipratropium/Albuterol Sulfate 3 ML AMPUL.NEB INHALATION ×2 (13:12→19:09)
[2024-10-29] MEDS: HYDROmorphone 0.5 MG/0.5 ML SYRINGE IV (13:16)
--- NOTE | 2024-10-29 14:26 | PCM.OPRPT ---
Procedures Hospitalists Procedures: 11840 Insertion of Chest Tube Operative Report (Standard) Operative Information Date of Procedure: 10/29/24 Pre-Operative Diagnosis: Left pneumothorax Post-Operative Diagnosis: Same Surgery/Procedure Performed: Left thoracostomy tube (20 Slovenian) placement sql analyst: No Type of Anesthesia: Local Procedure Start Time: 12:45 Procedure Stop Time: 13:00 Select all DRAINS/GRAFTS/IMPLANTS that apply: Drains Drain details: 20 Slovenian thoracostomy tube Estimated Blood Loss: 10 Specimen collected: No Description of surgery: Procedure name: Insertion of left tube thoracostomy (20 Fr) Procedure in detail : After obtaining consent from patient, the procedure was begun following a brief timeout confirming both the patient and the procedure. The insertion site was selected by identifying the intercostal space in the midaxillary line along the inframammary crease. The chest wall was prepped with chlorhexidine then locally anesthetized with 20 mL 1% Xylocaine. A scalpel was used to incise the skin with an approximately 3 cm transverse incision. Blunt dissection was used to spread the subcutaneous tissue and underlying intercostal muscle fibers. Then through controlled pressure a Ely clamp was used to access the pleural cavity. This tract was bluntly spread open and the clamp was exchanged for the chest tube. Chest tube was inserted to a depth of 16 centimeters on the chest tube marking at the skin. There was immediate return of air after the tube was connected to the Pleur-evac collection device. The Pleur-evac was connected to wall suction with a chest tube suction of -20 cmH2O. There was a very intermittent air leak. Chest tube was then tied in with 0 silk suture. The site was dressed with petroleum gauze and regular gauze to pad the skin against the chest tube and this dressing was taped in place with a mesentery at the distal portion of the chest tube to allow for limited movement. A post-procedure chest x-ray was obtained to confirm tube position. Complications: None EBL: 10 mL Surgical Findings: ? Thick chest wall ? Immediate egress of air with minimal airleak and no return of bloody discharge Complications Complications: No
[2024-10-29] MEDS: Ondansetron 4 MG/2 ML Vial IV (16:57)
[2024-10-30] VITALS (9 sets, daily range): BP systolic 129–174; BP diastolic 60–91; PULSE 82–100; RESP 16–21; TEMP 36.4–36.9; O2SAT 93–98; BMI 42.0
[2024-10-30] MEDS: guaiFENesin/Codeine 5 ML UDC 10 ML PO (00:24)
[2024-10-30] MEDS: Acetaminophen 325 MG Tablet 650 MG PO (05:11)
--- NOTE | 2024-10-30 06:00 | RAD_ITS ---
STUDY: X-RAY CHEST REASON FOR EXAM: Male, 54 years old patient with left-sided pneumothorax. TECHNIQUE: Single AP portable view of the chest. COMPARISON: October 29, 2024. FINDINGS: Cardiac monitoring leads are present. The lungs are expanded. There are prominent bronchovascular markings particularly in the lung bases with what appears to be interstitial thickening and peribronchial cuffing. There is no demonstrated pleural abnormality. Normal size heart. Normal mediastinum and sweetie. Normal visualized pulmonary arteries. Normal visualized aortic arch and descending thoracic aorta. Normal visualized thoracic spine. Normal visualized ribs, clavicles, and shoulders. There is no demonstrated abnormality of the visualized soft tissue structures of the upper abdomen. RAD/Chest 1 View (Portable) IMPRESSION: 1. No pneumothorax is visualized. 2. Findings suggest possible viral infection or mycoplasma pneumonitis. 3. Improved aeration of left lung bases previous study. Electronically Signed: Selene Myles MD at 5:47 EST ,
--- NOTE | 2024-10-30 07:08 | PCM.PN.HOSP ---
Reason for Visit Reason for Visit: Diagnoses Hypokalemia (10/26/24) Obstructive sleep apnea (adult) (pediatric) (10/26/24) Emphysema, unspecified (10/26/24) Unspecified asthma with (acute) exacerbation (10/26/24) Other pneumothorax (10/26/24) Other abnormalities of breathing (10/26/24) Dysphagia, unspecified (10/26/24) Hyperglycemia, unspecified (10/26/24) Adverse effect of unspecified drugs, medicaments and biological substances, initial encounter (10/26/24) Personal history of other diseases of the respiratory system (10/26/24) Subjective Subjective Chest tube placed yesterday for worsening PTX. Feeling well. Denies shortness of breath. Objective Data Objective Data Vital Signs: Vital Signs Temp Pulse Resp BP Pulse Ox O2 Del Method O2 Flow Rate 36.6 C 82 18 138/80 H 94 Nasal Cannula 2 10/30/24 04:00 10/30/24 04:00 10/30/24 04:00 10/30/24 04:00 10/30/24 04:00 10/30/24 04:00 10/30/24 04:00 Oxygen Flow Rate (L/min) 2 Oxygen Delivery Method Nasal Cannula Weight: 118.2 kg Body Mass Index (BMI) 42.0 Intake & Output: Intake and Output for Last 24 Hours 10/28/24 10/29/24 10/30/24 23:59 23:59 23:59 Intake Total 480 / 480 Output Total 1700 / 1700 162 / 162 520 / 520 Balance -1700 / -1700 318 / 318 -520 / -520 Lab / Micro Data 10/27/24 03:55 10/28/24 04:15 Radiography Diagnostic Testing: Radiology Impression Chest CT 10/29/24 07:23 IMPRESSION: Persistent bleb in the left lung apex with new pneumothorax measuring approximately 10-15% as compared to prior studies. Electronically Signed: Maicol Ford MD at 9:16 EST , Chest X-Ray 10/29/24 13:03 IMPRESSION: Focal airspace disease at the left lower lobe, more conspicuous than on the prior study. Consider atelectasis versus infiltrate given lower lung volumes. Electronically Signed: Darrell Mcdaniels MD at 14:52 EST , Chest X-Ray 10/30/24 06:00 IMPRESSION: 1. No pneumothorax is visualized. 2. Findings suggest possible viral infection or mycoplasma pneumonitis. 3. Improved aeration of left lung bases previous study. Electronically Signed: Selene Myles MD at 5:47 EST , Physical Exam Const alert and no apparent distress HEENT head/scalp atraumatic and moist oral mucous membranes Resp normal respiratory effort, no retractions, no use of accessory muscles and clear to auscultation bilaterally Resp Narrative: left sided chest tube in place. Cardio regular rate, regular rhythm, S1 normal heart sound and S2 normal heart sound GI normal to inspection, nondistended, normoactive bowel sounds, soft to palpation, non-tender and non-distended Extremity normal to inspection and full ROM Assessment & Plan Assessment/Plan (1) Acute pneumothorax: PLAN: Iatrogenic from placing chest tube in large bleb. Seen on lateral CXR. CXR showed no change in PTX. This is a large bleb. Pulmonary consulted and this appears to have been present previously. Pt life-long non-smoker. His father was a smoker and did have COPD. alpha-1 antitrypsin 139. Follow up CXR shows that the PTX is bigger. Up to 25%. CT chest ordered (formal read pending), shows his bled but with surrounding PTX. 10/29: 20-fr CT placed. Pulm michele White ([facility] at [facility]). Awaiting on transfer to [facility]. 10/30: CXR shows resolved PTX. (2) Dysphagia: PLAN: Coughing fit while eating. MBS on 10/28. ST recommending mechanical soft. Small bites. Small sips. Multiple swallows. (3) Asthma exacerbation: PLAN: Not formally diagnosed. Could certainly have COPD. Continue BDs. Start prednisone. Follow up with pulmonary for formal evaluation. PLAN: Plan Chronic conditions: obesity class III: complicates care and recovery SONU: No pressure-support ventilation given the low possibility of this being a PTX. Pt said CPAP is malfunctioning. Will need to follow up with pulm as outpt to remedy this. Crohn's disease: stable. follow up with GI. Hold budesonide while on prednisone. VTE prophylaxis: LMWH. Charges/Coding Visit Charges Inpatient E&M: 58043 Subs Hosp L2
[2024-10-30] MEDS: Ipratropium/Albuterol Sulfate 3 ML AMPUL.NEB INHALATION ×2 (07:48→13:31)
--- NOTE | 2024-10-30 07:48 | PCM.PN.SRG ---
Subjective Subjective Patient evaluated resting comfortably in bed. He is currently on oxygen via nasal canula 2L. He notes his shortness of breath has improved. He denies any chest pain this morning. He notes soreness at the chest tube site. CXR this morning shows no pneumothorax. Objective Data Objective Data Vital Signs: Vital Signs Temp Pulse Resp BP Pulse Ox O2 Del Method O2 Flow Rate 97.9 F 82 18 138/80 H 94 Nasal Cannula 2 10/30/24 04:00 10/30/24 04:00 10/30/24 04:00 10/30/24 04:00 10/30/24 04:00 10/30/24 04:00 10/30/24 04:00 Oxygen Flow Rate (L/min) 2 Oxygen Delivery Method Nasal Cannula Weight: 260 lb 9.382 oz Body Mass Index (BMI) 42.0 Intake & Output: Intake and Output for Last 24 Hours 10/28/24 10/29/24 10/30/24 23:59 23:59 23:59 Intake Total 480 / 480 Output Total 1700 / 1700 162 / 162 520 / 520 Balance -1700 / -1700 318 / 318 -520 / -520 Lab / Micro Data 10/27/24 03:55 10/28/24 04:15 Radiography Diagnostic Testing: Radiology Impression Chest CT 10/29/24 07:23 IMPRESSION: Persistent bleb in the left lung apex with new pneumothorax measuring approximately 10-15% as compared to prior studies. Electronically Signed: Maicol Ford MD at 9:16 EST , Chest X-Ray 10/29/24 13:03 IMPRESSION: Focal airspace disease at the left lower lobe, more conspicuous than on the prior study. Consider atelectasis versus infiltrate given lower lung volumes. Electronically Signed: Darrell Mcdaniels MD at 14:52 EST , Chest X-Ray 10/30/24 06:00 IMPRESSION: 1. No pneumothorax is visualized. 2. Findings suggest possible viral infection or mycoplasma pneumonitis. 3. Improved aeration of left lung bases previous study. Electronically Signed: Selene Myles MD at 5:47 EST , Physical Exam Resp normal respiratory effort and normal air movement Resp Narrative: Diminished respiratory breath sounds on left apical Chest tube intact and well secured No air leak noted with coughing Tenderness noted at the chest tube insertion site Assessment & Plan Assessment/Plan (1) Acute pneumothorax: PLAN: I am following this patient in conjunction with Dr. Oquendo. He has independently evaluated this patient. Place chest tube to [facility] today Repeat CXR tomorrow morning Continue to recommend patient be evaluated by cardiothoracic No plans at this time to remove chest tube We will continue to monitor this patient Charges/Coding Visit Charges Inpatient E&M: 52606 Subs Hosp L1
--- NOTE | 2024-10-30 07:59 | PCM.PN.INT ---
Assessment & Plan Assessment/Plan (1) Lung bullae: PLAN: Plan RECOMMENDATIONS: 1. Continue as needed bronchodilator therapy. 2. Chest tube to be placed to [facility] today. Obtain follow-up chest x-ray in the morning. 3. Tentative plans for transfer to [facility] for thoracic surgery involvement. IMPRESSIONS: 1. Shortness of breath and cough/left upper lobe bullae complicated by pneumothorax The patient presented to the hospital with concern for URI with shortness of breath and cough, having been referred from a local urgent care went uncontrolled hypertension and hypoxia. The patient has a self-reported history of asthma, which appears suboptimally managed on an outpatient basis. Upon completion of his chest imaging, there was initial concern for a possible pneumothorax. However, it appears that the patient has a large left upper lobe bullae, which was partially visualized on CT imaging of the abdomen and pelvis dating back to 2020. In the emergency department, a small bore pleural catheter was placed, but ultimately dislodged. The patient was initially stable for several days, but then developed radiographic evidence of a pneumothorax, which was confirmed on repeat CT imaging. Therefore, a 20 Italian chest tube was ultimately placed on October 29. There has been interval resolution of the previously noted pneumothorax. Given the nature of his bullous disease, the case was discussed with cardiothoracic surgery at [facility], who is in agreement to transfer the patient to their facility, should surgical intervention be required. The patient is otherwise stable from a respiratory perspective. The exact etiology for the patient's bullous disease is not entirely clear, given his non-smoking history. 2. History of obstructive sleep apnea The patient reported that his current CPAP machine is no longer functional and he is in need of establishing care with a provider to obtain a new prescription for equipment. Recommend outpatient pulmonary follow-up with discharge. 3. Morbid obesity/recently diagnosed Crohn's disease/GERD Complicates care, management, recovery and prognosis. Continue home medications as indicated. This note was generated with [employer] dictation software. It may contain incorrect words, spelling, and punctuation that were not noted in checking the note before signing. Subjective Subjective The patient was seen and examined at the bedside this morning. Events from the last 24 hours have been reviewed. The patient is currently afebrile, hemodynamically stable and maintaining appropriate oxygen saturations on 2 L/min via nasal cannula. The patient had an uneventful night. He does report a mild degree of pain at the chest tube insertion site. Chest x-ray this morning showed no evidence of discernible pneumothorax. Objective Data Objective Data The patient's most recent lab work, culture data and imaging studies have all been personally reviewed. Vital Signs: Vital Signs Temp Pulse Resp BP Pulse Ox O2 Del Method O2 Flow Rate 97.9 F 82 18 138/80 H 94 Nasal Cannula 2 10/30/24 04:00 10/30/24 04:00 10/30/24 04:00 10/30/24 04:00 10/30/24 04:00 10/30/24 04:00 10/30/24 04:00 Oxygen Flow Rate (L/min) 2 Oxygen Delivery Method Nasal Cannula Weight: 260 lb 9.382 oz Body Mass Index (BMI) 42.0 Intake & Output: Intake and Output for Last 24 Hours 10/28/24 10/29/24 10/30/24 23:59 23:59 23:59 Intake Total 480 / 480 Output Total 1700 / 1700 162 / 162 520 / 520 Balance -1700 / -1700 318 / 318 -520 / -520 Lab / Micro Data Attestation: I reviewed the patient's lab results. 10/27/24 03:55 10/28/24 04:15 Labs: Laboratory Results - last 24 hr 10/27/24 09:45: [id number] 139, HIV 1&2 Antibody Non-Reactive 10/28/24 04:15: Sodium 138, Potassium 3.4 L, Chloride 102, Carbon Dioxide 31.0, Anion Gap 5, BUN 14, Creatinine 0.76, Estim Creat Clear Calc 136.17, Est GFR (MDRD) Af Amer 137, Est GFR (MDRD) Non-Af 113, BUN/Creatinine Ratio 18.3, Glucose 106, Calcium 9.0, Phosphorus 3.8, Magnesium 2.5 Radiography Diagnostic Testing: Radiology Impression Chest CT 10/29/24 07:23 IMPRESSION: Persistent bleb in the left lung apex with new pneumothorax measuring approximately 10-15% as compared to prior studies. Electronically Signed: Maicol Ford MD at 9:16 EST , Chest X-Ray 10/29/24 13:03 IMPRESSION: Focal airspace disease at the left lower lobe, more conspicuous than on the prior study. Consider atelectasis versus infiltrate given lower lung volumes. Electronically Signed: Darrell Mcdaniels MD at 14:52 EST , Chest X-Ray 10/30/24 06:00 IMPRESSION: 1. No pneumothorax is visualized. 2. Findings suggest possible viral infection or mycoplasma pneumonitis. 3. Improved aeration of left lung bases previous study. Electronically Signed: Selene Myles MD at 5:47 EST , Physical Exam Const alert, oriented x3 and no apparent distress Constitutional Narrative: Morbidly obese. General Appearance: cooperative HEENT normocephalic, head/scalp atraumatic and moist oral mucous membranes Eyes PERRL, EOMs intact bilaterally and conjunctivae normal Neck supple General: trachea midline Chest inspection of chest normal Chest Narrative: No airleak noted in the Pleur-evac. Chest: chest tube left Resp normal respiratory effort Auscultation: diminished lung sounds; Negative for rales, rhonchi or wheezes Cardio regular rate and regular rhythm GI normal to inspection, nondistended, normoactive bowel sounds Extremity no clubbing, cyanosis or edema Skin no rashes or lesions noted Neuro CN's II-XII intact bilaterally, moves all extremities and no focal motor deficits Psych cooperative and affect normal Charges/Coding Visit Charges Inpatient E&M: 75263 Subs Hosp L2
[2024-10-30] MEDS: Ensure Plus High Protein 120 ML LIQUID PO (10:01)
[2024-10-30] MEDS: Pantoprazole Sodium 40 MG Tablet PO (10:01)
[2024-10-30] MEDS: predniSONE 20 MG Tablet 40 MG PO (10:01)
[2024-10-30] MEDS: 0.9% Saline Lock 10 ML Syringe IV ×2 (11:37→21:41)
[2024-10-30] MEDS: Morphine 2 MG/ML Syringe IV ×3 (11:37→21:41)
--- NOTE | 2024-10-30 14:12 | RAD_ITS ---
STUDY: X-RAY CHEST REASON FOR EXAM: Male, 54 years old. Shortness of breath -- L PTX TECHNIQUE: Single AP portable view of the chest. COMPARISON: Comparison is made with prior study done earlier today. FINDINGS: A left-sided chest tube is seen with the tip in the inferior medial aspect of the left hemithorax. EKG electrodes are seen. No evidence of pneumothorax. Mild residual increased markings at the lung bases. There is no demonstrated pleural abnormality. Normal size heart. Normal mediastinum and sweetie. Normal visualized pulmonary arteries. Normal visualized aortic arch and descending thoracic aorta. Normal visualized thoracic spine. Normal visualized ribs, clavicles, and shoulders. There is no demonstrated abnormality of the visualized soft tissue structures of the upper abdomen. RAD/Chest 1 View (Portable) IMPRESSION: Stable left-sided chest tube. No evidence of pneumothorax. Mild residual increased markings at the lung bases suggest some mild basilar atelectasis. This has improved as compared to prior study Electronically Signed: Maicol Ford MD at 14:36 EST ,
--- NOTE | 2024-10-30 16:29 | DS.PCM_ITS ---
Providers Date of Admission: 10/26/24 Primary Care Physician: Dr. Sherif Spann, Consultations 10/26/24 23:15 Consult: General Surgery Routine Consulting Provider: Alden Oquendo Reason for Consult: Left PTX EMERGENT Consult: No Notified: Yes Date Notified: 10/26/24 Time Notified: 23:15 Method of Notification: ED Physician Initiated 10/27/24 07:22 Consult: Ornament Setter / Pulmonary Medicine Routine Consulting Provider: Intensivists/Pulmonary Med Reason for Consult: BON bleb EMERGENT Consult: No MD Notified: Yes Date Notified: 10/27/24 Time Notified: 07:22 Method of Notification: Text Reason For Visit: LEFT PTX Diagnosis Discharge Diagnosis (1) Acute pneumothorax: Status: Acute Code(s): J93.83 - Other pneumothorax (2) Lung bullae: Status: Acute Code(s): J43.9 - Emphysema, unspecified Plan Chronic conditions: * obesity class III: complicates care and recovery * SONU: No pressure-support ventilation given the low possibility of this being a PTX. Pt said CPAP is malfunctioning. Will need to follow up with pulm as outpt to remedy this. * Crohn's disease: stable. follow up with GI. Hold budesonide while on prednisone. VTE prophylaxis: LMWH. Medications at Discharge Home Medications albuterol sulfate 90 mcg/actuation aerosol inhaler (Ventolin HFA) 1 puff inhalation Q6H PRN PRN Sob &/Or Wheezing 01/18/15 albuterol sulfate 2.5 mg/0.5 mL solution for nebulization 2.5 mg inhalation Q20M 10/28/21 omeprazole 20 mg capsule,delayed release 40 mg PO DAILY 06/17/24 budesonide 3 mg capsule,delayed,extended release 6 mg (2 x 3 mg) PO QDAY #60 ea 06/23/24 ketorolac 10 mg tablet 10 mg PO 4X/DAY PRN pain 5 days #20 tabs 09/19/24 methocarbamol 500 mg tablet 1,000 mg (2 x 500 mg) PO 4X/DAY PRN Muscle pain/spasm #56 tabs 09/19/24 Hospital Course Operations None and - (chest tube placement) Summary of Care Provided Minutes Spent on Discharge: 35 Hospital Course: This is a 54-year-old male presents with shortness of breath. He had what appeared to be a pneumothorax so a chest tube was placed but came out while he was in the emergency room. Subsequent imaging showed that this was more of bullae and actually not a pneumothorax. The patient was brought in for further observation. And follow-up x-rays actually did show development of a pneumothorax from that attempted chest tube which actually got better and a large bore chest tube was placed the nd. Pulmonary was consulted and recommended transfer to a tertiary facility and Dr. Padilla spoke with Dr. White at [facility] and patient was accepted. Patient was transferred there today in stable condition. Patient had a coughing spell. Speech therapy saw and order modified barium swallow study. Patient was recommended being on a modified diet prevent aspiration. Weight / BMI Weight Weight: 118.2 kg Body Mass Index (BMI) 42.0 ABG / Lab / Microbiology Data 10/27/24 03:55 10/28/24 04:15 Radiography Diagnostic Testing: Radiology Impression Chest X-Ray 10/30/24 06:00 IMPRESSION: 1. No pneumothorax is visualized. 2. Findings suggest possible viral infection or mycoplasma pneumonitis. 3. Improved aeration of left lung bases previous study. Electronically Signed: Selene Myles MD at 5:47 EST , Chest X-Ray 10/30/24 14:12 IMPRESSION: Stable left-sided chest tube. No evidence of pneumothorax. Mild residual increased markings at the lung bases suggest some mild basilar atelectasis. This has improved as compared to prior study Electronically Signed: Maicol Ford MD at 14:36 EST , D/C Instructions DC O2, CPAP, BIPAP Needs RN Home O2 Qualification: Home O2 Qualification: Is the patient on home oxygen No 10/27/24 11:59 Home O2 Qualification: AT REST 1- Pulse Ox at rest 94 10/27/24 11:59 Home O2 Qualification: WITH AMBULATION 1- Pulse Ox with ambulation 91 10/27/24 11:59 1- Oxygen Flow Rate with 0 10/27/24 11:59 ambulation Home O2 Discharge instructions: No Meaningful Use Info Meaningful Use Meaningful Use Diagnoses (Choose all that apply): None applicable Ischemic Stroke Statin Dosing Therapy Reference: STATIN DOSE THERAPY REFERENCE: * Patients > 75 years receive moderate or high dose statin therapy. * Patients 75 years or YOUNGER should receive HIGH intensity statin dose unless contraindicated. You will be required to document reason for non-treatment if statin daily dose does not meet guidelines. HIGH DOSE STATIN THERAPY DAILY Atorvastatin > than or = to 40 mg Rosuvastatin > than or = to 20 mg Amlodipine + Atorvastatin > than or = to 2.5/40 mg Ezetimibe + Simvastatin 10/80 mg Simvastatin 80mg Discharge Plan Admission Admit Date/Time: 10/26/24 22:58 Primary Reason for Your Visit: pneumothorax Attending Provider: Chay Hernandez Primary Care Provider: Sherif Spann Consulting Providers: Wan Cuevas; Alden Oquendo; Hugh Melton; Jun Mabry; Xavier Whitlock; Seven Padilla; Wan Arita; Jacob Meyer; Gary Lombardi; Frannie Carr; Chinmay Yeung; Chaparro Chatman; Darrell Perry; Chanelle Mckinley; Yao Wan; Pool Wagoner; Souleymane Durham; Olivier Rodriguez; Lico Borjas; Minesh Montejo; Pablo Liu; Everett Madden; Peter Ferreira; Alex Ruano Discharge Orders/Prescriptions Prescriptions: No Action albuterol sulfate [Ventolin HFA] 1 INHALER inhaler 1 puff inhalation Q6H PRN PRN (Reason: Sob &/Or Wheezing) albuterol sulfate 2.5 mg/0.5 mL Solution For Nebulization 2.5 mg INHALATION Q20M omeprazole 20 mg capsule,delayed release(DR/EC) 40 mg PO DAILY methocarbamol 500 mg tablet 1,000 mg PO 4X/DAY PRN (Reason: Muscle pain/spasm) Qty: 56 1RF ketorolac 10 mg tablet 10 mg PO 4X/DAY PRN (Reason: pain) 5 Days Qty: 20 0RF budesonide 3 mg capsule,delayed,extend.release 6 mg PO QDAY Qty: 60 3RF Referrals / Follow Up: [facility] [Provider Group] - 11/06/24 11:00 am ([facility] Address: [address] [place], [place] [id number] ) Sherif Spann DO [Primary Care Provider] - Kay Brumfield [employer] [Med Staff - Adv Practice Prof] - 11/28/24 9:15 am Disposition Disposition (needs filled in before D/C Order can be placed): Acute Care Hospital Charges/Coding Visit Charges Inpatient E&M: 22948 Disch Hosp >30min
== END 2024-10-29 22:00 | disposition short-term general hospital (02) | DRG 200 ==
LOC: ED 21:38 → ICU 23:23
PROVIDERS: Family Medicine; Internal Medicine Critical Care Medicine; Admitting Provider Internal Medicine; Emergency Provider Emergency Medicine; PCP Family Medicine
DX: J93.83 Other pneumothorax (principal); J45.901 Unspecified asthma with (acute) exacerbation; Z68.42 Body mass index [BMI] 45.0-49.9, adult; K50.90 Crohn's disease, unspecified, without complications; I10 Essential (primary) hypertension; J43.9 Emphysema, unspecified; K21.9 Gastro-esophageal reflux disease without esophagitis; G47.33 Obstructive sleep apnea (adult) (pediatric); M19.90 Unspecified osteoarthritis, unspecified site; G43.909 Migraine, unspecified, not intractable, without status migrainosus; E87.6 Hypokalemia; J20.9 Acute bronchitis, unspecified; R13.10 Dysphagia, unspecified; E66.813 Obesity, class 3; R60.0 Localized edema; Z86.16 Personal history of COVID-19; Z79.51 Long term (current) use of inhaled steroids; R73.9 Hyperglycemia, unspecified; Z99.89 Dependence on other enabling machines and devices; Z87.09 Personal history of other diseases of the respiratory system
CPT/HCPCS: 32551; 71045; 71046; 71250; 71260; 71275; 74230; 80048; 80053; 80076; 82103; 83735; 83880; 84100; 84484; 85025; 86703; 92526; 92610; 92611; 93005; 94640; 94668; 97161; 97166; 99285; Q9967; A4216; J1940; J2405

== ENCOUNTER 2024-11-03 22:02 | Emergency (ER) | payer OTHER, SELFPAY ==
[2024-11-03 22:03] VITALS: BP 190/88; PULSE 105; RESP 24; TEMP 36.4; O2SAT 96; BMI 43.9
--- NOTE | 2024-11-03 22:10 | RAD_ITS ---
EXAM: XR CHEST, 1 VIEW CLINICAL INDICATION: SOB TECHNIQUE: Frontal view of the chest. COMPARISON: 10/30/2024 FINDINGS: LUNGS AND PLEURAL SPACES: There is haziness of the left heart border may represent developing left lower lobe pneumonia. No pneumothorax. No effusion. HEART: Unremarkable. Cardiac silhouette not enlarged. MEDIASTINUM: Central airways and mediastinal contour are unremarkable. BONES/JOINTS: Unremarkable. No acute fracture. SOFT TISSUES: Unremarkable. RAD/Chest 1 View (Portable) IMPRESSION: Haziness of the left heart border which may represent early left lower lobe pneumonia. Electronically Signed: Roger Romero MD at 23:19 EST ,
--- NOTE | 2024-11-03 22:24 | EKG12_ITS ---
Test Reason : SOB/CP Blood Pressure : */* mmHG Vent. Rate : 109 BPM Atrial Rate : 109 BPM P-R Int : 190 ms QRS Dur : 94 ms QT Int : 326 ms P-R-T Axes : 48 45 69 degrees QTcB Int : 439 ms Sinus tachycardia Otherwise normal ECG Confirmed by DEEPIKA MELVIN, ORQUIDEA ([id number]), editor magazine [employer] ([id number]) on 11/05/2024 6:29:15 AM Referred By: TL Confirmed By: ORQUIDEA POE MD
[2024-11-03 22:26] LABS: Absolute Lymphocyte Count 0.94 X10^3/uL (0.83-4.51); Absolute Neutrophil Count 9.2 X10^3/uL (2.0-7.7); Basophil# 0.03 X10^3/uL; Basophil% 0.3 % (0-1); Eosinophil# 0.01 X10^3/uL; Eosinophils% 0.1 % (0-5); Hematocrit 46.4 % (40-54); Lymphocyte # 0.94 X10^3/ul (0.83-4.51); Lymphocyte % 8.7 % (19-41); Mean Corp Hgb Conc 34.5 g/dL (32-36); Mean Corpuscular Hgb 30.5 pg (27.0-32.0); Mean Corpuscular Volume 88.4 fL (80-94); Mean Platelet Vol. 8.6 fl (6.2-12.0); Monocyte# 0.56 X10^3/uL; Monocyte% 5.2 % (0-10); NRBC Flagged by Analyzer 0 % (0-5); Neutrophil # 9.22 X10^3/uL (2.7-7.7); Neutrophil % 85.1 % (47-70); Platelet Count 279 K/mm3 (150-450); RBC Distribution Width CV 13.2 % (11.6-14.6); RBC Distribution Width SD 42.9 fl (35.1-43.9); Red Blood Count 5.25 M/mm3 (4.6-6.2); White Blood Count 10.8 K/mm3 (4.4-11.0)
[2024-11-03 22:52] LABS: Anion Gap 7 (5-15); BUN 17 mg/dL (7-18); BUN/Creat Ratio 14.2 RATIO (10-20); Calcium,Total 9.1 mg/dL (8.5-10.1); Chloride 107 mmol/L (98-107); EST Glomerular Filtration Rate 67 mL/min (>60); Est Glom Filt Rate - Afr Amer 81 mL/min (>60); Estimated Creatinine Clearance 87.23 ml/min; Glucose 147 mg/dL (74-106); Potassium 4.2 mmol/L (3.5-5.1); Sodium Level 136 mmol/L (136-145); Troponin-I HS 5 pg/mL (3.0-78.0)
--- NOTE | 2024-11-03 22:57 | CT_ITS ---
We are attempting to reach an attending provider to discuss findings. An addendum with communication details will be sent when the communication is complete. EXAM: CT ANGIOGRAPHY CHEST WITHOUT AND WITH INTRAVENOUS CONTRAST CLINICAL INDICATION: dyspnea TECHNIQUE: Helically acquired angiography images were obtained of the chest without and with intravenous contrast. This CT exam was performed using one or more of the following dose reduction techniques: automated exposure control, adjustment of the mA and/or kV according to patient size, and/or use of iterative reconstruction technique. MIP reconstructed images were created and reviewed. CONTRAST: IV 100mL [id number] COMPARISON: 10/29/2024 FINDINGS: PULMONARY ARTERIES: Unremarkable. Normal in caliber. No evidence of pulmonary embolism. AORTA: Unremarkable. Normal in caliber. No evidence of dissection. GREAT VESSELS OF AORTIC ARCH: Unremarkable. Normal in caliber. No evidence of dissection. LUNGS AND PLEURAL SPACES: Large left upper lobe bleb is again present and unchanged. There is now an apparent pneumothorax on the left which is unchanged from the most recent examination. No mass. No pleural effusion or thickening. HEART: Unremarkable. Heart size is normal. No pericardial effusion. No significant coronary artery calcifications. MEDIASTINUM: Unremarkable. No mediastinal or hilar adenopathy. Esophagus is unremarkable. No hiatal hernia. THYROID: Unremarkable. No thyroid lesions. BONES/JOINTS: Unremarkable. No suspicious lytic or blastic abnormality. CT/CTA Chest W/WO Contrast IMPRESSION: 1. No evidence of pulmonary embolus. 2. Large bleb in the left upper lobe. There is also a left-sided pneumothorax which is unchanged from the reference exam. Electronically Signed: Roger Romero MD at 23:53 EST ,
[2024-11-03] MEDS: Morphine 4 MG/ML Syringe IV (23:02)
[2024-11-03] MEDS: Ondansetron 4 MG/2 ML Vial IV (23:02)
[2024-11-03 23:05] VITALS: RESP 25; O2SAT 93
[2024-11-03 23:20] VITALS: PULSE 99; RESP 25; O2SAT 91
[2024-11-04] VITALS: BP 143/71; PULSE 95; RESP 24; O2SAT 90
[2024-11-04 01:00] VITALS: BP 164/77; PULSE 90; RESP 23; O2SAT 93
--- NOTE | 2024-11-04 01:34 | EDS_ITS ---
HPI History of Present Illness Chief Complaint: Shortness of Breath Informant: patient Narrative Narrative: Patient is a 54-year-old male with past medical history of obstructive sleep apnea GERD and lung bullae. He was recently seen at our hospital secondary to shortness of breath and found to have bullae with a pneumothorax. A chest tube was placed and he was admitted to the hospital. He states he was kept at our facility for multiple days but there was no symptom improvement and as he would require evaluation by cardiothoracic surgeon which we do not have he was transferred to [facility]. He states that the chest tube was removed and he was discharged from their facility on Sunday. He states he has been following her discharge instructions but that today around 6 PM he noticed increasing shortness of breath and left-sided chest pain. He states he took his pulse ox at home and it was in the mid 80s and secondary to this he presents for evaluation [facility] Medical History Dysphagia Lung bullae SONU on CPAP History of bronchitis BMI greater than 40 GERD (gastroesophageal reflux disease) CPAP (continuous positive airway pressure) dependence Sleep apnea Migraines Cancer Fatty liver Heartburn Non-smoker History of stress test Home Medications ?Medication ?Instructions ?Recorded ?Last Taken ?Type albuterol sulfate 90 mcg/actuation 1 puff inhalation Q6H PRN PRN Sob 01/18/15 Unknown History aerosol inhaler (Ventolin HFA) &/Or Wheezing albuterol sulfate 2.5 mg/0.5 mL 2.5 mg inhalation Q20M 10/28/21 Unknown History solution for nebulization omeprazole 20 mg capsule,delayed 40 mg PO DAILY 06/17/24 06/17/24 History release budesonide 3 mg 6 mg (2 x 3 mg) PO QDAY #60 ea 06/23/24 Unknown Rx capsule,delayed,extended release ketorolac 10 mg tablet 10 mg PO 4X/DAY PRN pain 5 days 09/19/24 Unknown Rx #20 tabs methocarbamol 500 mg tablet 1,000 mg (2 x 500 mg) PO 4X/DAY 09/19/24 Unknown Rx PRN Muscle pain/spasm #56 tabs Allergy/AdvReac Type Severity Reaction Status Date / Time Penicillins Allergy Unknown Verified 11/03/24 22:07 Sulfa (Sulfonamide Allergy Unknown Verified 11/03/24 22:07 Antibiotics) Surgical History H/O removal of testicle History of tonsillectomy Social History Smoking Status: Never smoker ROS ROS ED Constitutional Constitutional ED: Denies chills or fever(s) Eyes Eyes: Denies change in vision ENT ENT ED: Denies sore throat Cardiovascular Cardiovascular: Reports chest pain and racing heartbeat; Denies palpitations Respiratory/Chest Respiratory/Chest: Reports dyspnea; Denies cough Gastrointestinal Gastrointestinal: Denies abdominal pain, diarrhea, nausea or vomiting Genitourinary Genitourinary ED: Denies dysuria Musculoskeletal Musculoskeletal: Denies back pain Integumentary Denies rash Neurologic Neurologic: Denies headache(s) Hematologic/Lymphatic Hematologic/Lymphatic: Denies easy bleeding or easy bruising Allergic/Immunologic Allergic/Immunologic ED: Denies mouth swelling, tongue swelling or urticaria EXAM Physical Exam Const Vital Signs: 11/03/24 22:03 11/03/24 23:05 11/03/24 23:05 Temperature 97.6 F L Temperature Source Temporal Pulse Rate 105 H Respiratory Rate 24 H 25 H Respiratory Effort Respiratory Depth Respiratory Pattern Blood Pressure 190/88 H Blood Pressure Mean 122 Pulse Ox 96 93 93 Oxygen Delivery Method Room Air Room Air Room Air 11/03/24 23:05 11/03/24 23:20 11/04/24 00:00 Temperature Temperature Source Pulse Rate 99 95 Respiratory Rate 25 H 24 H Respiratory Effort Short of Breath Accessory Muscle Use Respiratory Depth Shallow Respiratory Pattern Tachypnea Blood Pressure 143/71 H Blood Pressure Mean 95 Pulse Ox 91 90 Oxygen Delivery Method Room Air Room Air Room Air 11/04/24 01:00 11/04/24 02:00 11/04/24 02:13 Temperature 98.2 F Temperature Source Pulse Rate 90 93 92 Respiratory Rate 23 H 18 22 H Respiratory Effort Respiratory Depth Respiratory Pattern Blood Pressure 164/77 H 145/75 H 145/75 H Blood Pressure Mean 106 98 98 Pulse Ox 93 95 91 Oxygen Delivery Method Room Air Room Air 11/04/24 02:53 Temperature Temperature Source Pulse Rate 88 Respiratory Rate 20 H Respiratory Effort Respiratory Depth Respiratory Pattern Blood Pressure 144/78 H Blood Pressure Mean 100 Pulse Ox 95 Oxygen Delivery Method Room Air Positive well nourished, well developed and obese Constitutional Narrative: Patient is in mild respiratory distress with slight tachypnea General Appearance ED: well developed; Negative for pallor Nutritional Appearance: obese HEENT Reports moist mucous membranes HEENT Narrative: No tongue or lip swelling no oral lesions no airway edema or compromise Eyes PERRL and EOMs intact bilaterally General Eye ED: Negative for pale conjunctiva or scleral icterus Neck supple and no JVD Neck Narrative: No nuchal rigidity or crepitance Chest Wall Chest Narrative: There is reproducible pain with palpation of the left anterior lateral chest wall near the region where patient had his recent chest tube inserted. However the wound is clean dry and intact without secondary changes to suggest infection. No crepitance or subcutaneous emphysema noted Resp Resp Narrative: Patient is in mild respiratory distress with tachypnea. Breath sounds are diminished throughout with diffuse expiratory wheeze. No nasal flaring retractions or accessory muscle use Cardio regular rhythm Rate: tachycardic and other Other Details: Tachycardic rate with regular rhythm GI normal to inspection, nondistended, normoactive bowel sounds, non-tender, non- distended and no masses GI Narrative: No voluntary guarding or rigidity or pulsatile mass Auscultation: normoactive bowel sounds Palpation: soft Extremity normal to inspection Extremity Narrative: No asymmetric edema no pitting edema negative Homans' sign bilaterally Neuro oriented x3, CN's II-XII intact bilaterally and no sensory deficits noted Sensorium / Orientation: alert Motor Exam: strength 5/5 throughout Psych Mood & Affect: anxious Skin no rashes or lesions noted Skin Narrative: Wound to the left anterior lateral chest wall consistent with recent chest tube insertion without findings to suggest secondary infection General Skin Exam: Negative for jaundice or pallor MDM MDM MDM Narrative Medical decision making narrative: Patient arrived to the ER tachypneic and tachycardic but satting in the mid 90s on room air. With his recent admission for pneumothorax there is concern for worsening or return of the pneumothorax as a cause of his chest discomfort and shortness of breath. As patient was recently admitted there is potential for pulmonary embolus or pneumonia or pleural effusion or dissection. Therefore basic labs with a CTA of the chest were obtained. Labs revealed no clinically significant findings and CT of the chest revealed no PE pneumonia or dissection. It did show the persistent bleb but also noted that the pneumothorax was similar in size to the 22nd of this month when he was admitted and transferred from our facility. Secondary to his tachypnea and chest pain and shortness of breath sensation the case was discussed with [place] cardiothoracic surgeon Dr. Gallardo. She states that because of his recent procedure and bleb history that he should be reevaluated at their hospital to decide if he needs repeat intervention. She does not recommend a chest tube be placed at this time as he is hemodynamically stable and there is high rate of complication because of his bleb history. As the patient will need to be monitored for worsening respirations and oxygen level he will be transferred by EMS to [facility] ER. At that time the cardiovascular surgery team can evaluate him and decide if he requires repeat intervention. This plan of care was discussed with the patient and he is agreeable to it History & Record Review Discussion w/independent historian: Patient Lab Data Attestation: I reviewed the patient's lab results. Labs: Laboratory Results - last 24 hr 11/03/24 22:20 WBC 10.8 RBC 5.25 Hgb 16.0 Hct 46.4 MCV 88.4 MCH 30.5 MCHC 34.5 RDW Std Deviation 42.9 RDW Coeff of Dany 13.2 Plt Count 279 MPV 8.6 Immature Gran % (Auto) 0.600 Neut % (Auto) 85.1 H Lymph % (Auto) 8.7 L [place] % (Auto) 5.2 Eos % (Auto) 0.1 Baso % (Auto) 0.3 Absolute Neuts (auto) 9.2 H Absolute Lymphs (auto) 0.94 Nucleated RBC % 0 Sodium 136 Potassium 4.2 Chloride 107 Carbon Dioxide 23.0 Anion Gap 7 BUN 17 Creatinine 1.20 Estim Creat Clear Calc 87.23 Est GFR (MDRD) Af Amer 81 Est GFR (MDRD) Non-Af 67 BUN/Creatinine Ratio 14.2 Glucose 147 H Calcium 9.1 Troponin I High Sens 5 Radiography Diagnostic Testing: Clinical Impression(s) from Imaging Studies Chest X-Ray 11/03/24 22:10 IMPRESSION: Haziness of the left heart border which may represent early left lower lobe pneumonia. Electronically Signed: Roger Romero MD at 23:19 EST , Chest CTA 11/03/24 22:57 IMPRESSION: 1. No evidence of pulmonary embolus. 2. Large bleb in the left upper lobe. There is also a left-sided pneumothorax which is unchanged from the reference exam. Electronically Signed: Roger Romero MD at 23:53 EST , ADDENDUM: 11/04/24 0006 IMPRESSION: 1. No evidence of pulmonary embolus. 2. Large bleb in the left upper lobe. There is also a left-sided pneumothorax which is unchanged from the reference exam. N.B. : The above Results were Read Back by Roger Romero MD to Darrell Myers DO, and understanding confirmed on 11/03/2024 23:59:51 (ET). Electronically Signed: Roger Romero MD at 23:53 EST , Chest x-ray as interpreted by the emergency medicine physician reveals no acute infiltrate pneumothorax or pleural effusion Discharge Plan Triage Chief Complaint: Shortness of Breath ED Provider: Darrell Myers Dx/Rx/DC Orders Clinical Impression: Recurrent pneumothorax, Emphysematous bleb of lung, Obstructive sleep apnea, GERD (gastroesophageal reflux disease) Prescriptions: No Action albuterol sulfate [Ventolin HFA] 1 INHALER inhaler 1 puff inhalation Q6H PRN PRN (Reason: Sob &/Or Wheezing) albuterol sulfate 2.5 mg/0.5 mL Solution For Nebulization 2.5 mg INHALATION Q20M omeprazole 20 mg capsule,delayed release(DR/EC) 40 mg PO DAILY methocarbamol 500 mg tablet 1,000 mg PO 4X/DAY PRN (Reason: Muscle pain/spasm) Qty: 56 1RF ketorolac 10 mg tablet 10 mg PO 4X/DAY PRN (Reason: pain) 5 Days Qty: 20 0RF budesonide 3 mg capsule,delayed,extend.release 6 mg PO QDAY Qty: 60 3RF Primary Care Provider: Sherif Spann Referrals: Sherif Spann DO [Primary Care Provider] - Print Language: Macanese Disposition Disposition: Acute Care Hospital Discharge Location: [facility] Discharge Date/Time: 11/04/24 03:09
[2024-11-04 02:00] VITALS: BP 145/75; PULSE 93; RESP 18; O2SAT 95
[2024-11-04 02:13] VITALS: BP 145/75; PULSE 92; RESP 22; TEMP 36.8; O2SAT 91
[2024-11-04 02:53] VITALS: BP 144/78; PULSE 88; RESP 20; O2SAT 95
== END 2024-11-04 03:09 | disposition short-term general hospital (02) ==
PROVIDERS: Emergency Provider Emergency Medicine; PCP Family Medicine; Visit Provider Emergency Medicine
DX: J93.9 Pneumothorax, unspecified (principal); J43.9 Emphysema, unspecified; K21.9 Gastro-esophageal reflux disease without esophagitis; G47.33 Obstructive sleep apnea (adult) (pediatric); Z99.89 Dependence on other enabling machines and devices; E66.9 Obesity, unspecified
CPT/HCPCS: 71045; 71275; 80048; 84484; 85025; 93005; 94760; 96374; 96375; 99283; Q9967; A4216; J2405

== ENCOUNTER 2024-11-15 21:14 | Emergency (ER) | payer OTHER, SELFPAY ==
[2024-11-15 21:16] VITALS: BP 153/93; PULSE 101; RESP 22; TEMP 36.3; O2SAT 98; BMI 43.9
--- NOTE | 2024-11-15 21:30 | EKG12_ITS ---
Test Reason : CP Blood Pressure : */* mmHG Vent. Rate : 98 BPM Atrial Rate : 98 BPM P-R Int : 180 ms QRS Dur : 92 ms QT Int : 328 ms P-R-T Axes : 56 30 61 degrees QTcB Int : 418 ms Normal sinus rhythm Normal ECG Confirmed by HERB MELVIN, MARISOL ([id number]), map editor KENRICK MACK ([id number]) on 11/17/2024 6:35:17 AM Referred By: [facility] Confirmed By: MARISOL ESTEVEZ MD
[2024-11-15 21:32] VITALS: BP 163/82; PULSE 94; RESP 18; O2SAT 96
--- NOTE | 2024-11-15 21:50 | RAD_ITS ---
PROCEDURE: CHEST INSP/EXP 2 VIEW REASON FOR EXAM: Decreased breath sounds left TECHNIQUE: Frontal views of the chest on inspiration and expiration. COMPARISON: 05/09/2024 FINDINGS: A small left-sided pneumothorax is present. There is a focal area of consolidation in the left midlung with an adjacent suture line. Streaky opacities are present in the left lung base. No pleural effusion or pneumothorax. The cardiomediastinal silhouette is unremarkable. No acute osseous or soft tissue abnormality. RAD/Chest Insp/Exp 2 View IMPRESSION: 1. Small left pneumothorax. 2. Areas of opacity in the left lung may be due to atelectasis or other infiltr ate. 3. Evidence of postoperative change with a suture line in the left upper lung f ield. Reading Location: [facility]
[2024-11-15] MEDS: Ondansetron 4 MG/2 ML Vial IV (22:07)
[2024-11-15] MEDS: Morphine 4 MG/ML Syringe IV (22:07)
--- NOTE | 2024-11-15 22:07 | EDS_ITS ---
HPI History of Present Illness Chief Complaint: Chest Pain Detail of Chief Complaint: Left-sided chest pain with pleuritic component Informant: patient Onset/Context/Timing Onset: Today Context: Sudden Onset Timing: Continuous Quality: Pain left side near chest tube insertion site Location: Previously noted Current Severity: Mild Maximum Severity: Moderate Worsened by: Breathing Relieved by: Nothing Associated Symptoms Associated Symptoms: Shortness of breath Narrative Narrative: Patient is a 54-year-old male. He had a spontaneous pneumothorax due to a large bleb on the left. He was admitted to [facility] on Sunday. He had surgery on Sunday. Chest tube was pulled on Sunday and he was discharged on . He presents because of left-sided pleuritic pain and shortness of breath. He feels that his lung dropped again. He has no other complaints. Prior similar symptoms: Yes Recent Illness/Hospitalization: Yes [facility] Medical History Dysphagia Lung bullae SONU on CPAP History of bronchitis BMI greater than 40 GERD (gastroesophageal reflux disease) CPAP (continuous positive airway pressure) dependence Sleep apnea Migraines Cancer Fatty liver Heartburn Non-smoker History of stress test Home Medications ?Medication ?Instructions ?Recorded ?Last Taken ?Type albuterol sulfate 90 mcg/actuation 1 puff inhalation Q 6H PRN PRN Sob 01/18/15 Unknown History aerosol inhaler (Ventolin HFA) &/Or Wheezing albuterol sulfate 2.5 mg/0.5 mL 2.5 mg inhalation Q20M 10/28/21 Unknown History solution for nebulization omeprazole 20 mg capsule,delayed 40 mg PO DAILY 06/17/24 History release budesonide 3 mg 6 mg (2 x 3 mg) PO QDAY #60 ea 06/23/24 Unknown Rx capsule,delayed,extended release Allergy/AdvReac Type Severity Reaction Status Date / Time Penicillins Allergy Unknown Verified 11/15/24 21:16 Sulfa (Sulfonamide Allergy Unknown Verified 11/15/24 21:16 Antibiotics) Surgical History H/O removal of testicle History of tonsillectomy Social History Smoking Status: Never smoker ROS ROS ED Constitutional Constitutional ED: Denies chills, fever(s), subjective or sweats Eyes Eyes: Denies blurry vision or change in vision ENT ENT ED: Denies rhinorrhea or sore throat Cardiovascular Cardiovascular: Reports chest pain; Denies orthopnea, palpitations, paroxysmal nocturnal dyspnea or racing heartbeat Respiratory/Chest Respiratory/Chest: Reports dyspnea; Denies cough, dyspnea on exertion, orthopnea or paroxysmal nocturnal dyspnea Gastrointestinal Gastrointestinal: Denies abdominal pain, constipation, nausea or vomiting Musculoskeletal Musculoskeletal: Denies back pain or neck pain Integumentary Denies rash Endocrine Endocrinology: Denies cold intolerance or heat intolerance Hematologic/Lymphatic Hematologic/Lymphatic: Reports systems reviewed and no addt'l complaints, except as documented EXAM Physical Exam Const Vital Signs: 11/15/24 21:16 11/15/24 21:32 Temperature 97.4 F L Temperature Source Oral Pulse Rate 101 H 94 Respiratory Rate 22 H 18 Blood Pressure 153/93 H 163/82 H Blood Pressure Mean 113 109 Pulse Ox 98 96 Oxygen Delivery Method Room Air Room Air Positive well nourished and well developed Constitutional Narrative: BMI is 43.9. General Appearance ED: well developed HEENT HEENT Narrative: Head is atraumatic normocephalic. Ears normal. Nares patent. Eyes PERRL and EOMs intact bilaterally General Eye ED: Negative for pale conjunctiva or scleral icterus Neck no lymphadenopathy, supple and no JVD Chest Wall inspection of chest normal and palpation of chest normal Resp normal respiratory effort and clear to auscultation bilaterally Resp Narrative: Diminished breath sounds left apical region. Patient's surgical sites are well- healed without evidence of infection. Dermabond is still noted. Site of chest tube is healing without evidence infection. There is no crepitus or subcutaneous air appreciated on palpation. Cardio regular rate, regular rhythm, S1 normal heart sound, S2 normal heart sound and no murmurs GI normal to inspection, nondistended, normoactive bowel sounds, non-tender, non- distended and no masses; Negative for hepatosplenomegaly Extremity normal to inspection General Extremety ED: Negative for edema or tenderness General Extremity: Negative for edema Neuro oriented x3 and CN's II-XII intact bilaterally Sensorium / Orientation: alert Psych Mood & Affect: anxious Skin no rashes or lesions noted, no wounds and skin turgor normal MDM MDM MDM Narrative Medical decision making narrative: Patient presents with symptoms concerning for recurrent pneumothorax. Will obtain chest x-ray with in-store expiratory films. Per nurse protocol EKG was obtained. There is no evidence of ischemia. Radiography Chest X-Ray - ED: 2 View and Read by ED Physician (Inspiratory expiratory view obtained. Patient has poor inspiratory volume. Patient has small apical pneumothorax noted on the left.) Diagnostic Testing: Clinical Impression(s) from Imaging Studies Chest X-Ray 11/15/24 21:50 IMPRESSION: 1. Small left pneumothorax. 2. Areas of opacity in the left lung may be due to atelectasis or other infiltrate. 3. Evidence of postoperative change with a suture line in the left upper lung field. Reading Location: [facility] EK Initial EKG: Attestation: I personally reviewed and interpreted this EKG as follows: Interpretation: Sinus Rhythm (Rate is 98. EKG is normal. AL interval is 180 ms. QS duration 92 ms. QT duration 328 ms. Brandon is normal.) Management Discussion w/another healthcare provider: [employer]ro[employer] Technician (Spoke with cardiothoracic surgery at , Dr. Sharma. She informing the patient of small apical pneumothorax at the time of discharge 1.5 ribs. Since this is no larger and if anything slightly improved we will discharge to home with pain medicine.) Discharge Plan Triage Chief Complaint: Chest Pain ED Provider: Leandro Simmons Dx/Rx/DC Orders Clinical Impression: Pleuritic chest pain, Pneumothorax on left Instructions: ED Pleurisy Prescriptions: No Action albuterol sulfate [Ventolin HFA] 1 INHALER inhaler 1 puff inhalation Q6H PRN PRN (Reason: Sob &/Or Wheezing) albuterol sulfate 2.5 mg/0.5 mL Solution For Nebulization 2.5 mg INHALATION Q20M omeprazole 20 mg capsule,delayed release(DR/EC) 40 mg PO DAILY budesonide 3 mg capsule,delayed,extend.release 6 mg PO QDAY Qty: 60 3RF Primary Care Provider: Sherif Spann Referrals: Sherif Spann DO [Primary Care Provider] - Activity Restrictions/Additional Instructions: Keep your scheduled appointment with Dr. Carpenter cardiothoracic surgeon at . Print Language: Chilean Disposition Disposition: Home, Self Care
[2024-11-15 23:00] VITALS: PULSE 92; RESP 21; O2SAT 95
[2024-11-15] MEDS: Naproxen 500 MG Tablet PO (23:22)
[2024-11-15] MEDS: HYDROcodone Bitartrate/Apap 5/325 Tablet PO (23:22)
[2024-11-15 23:33] VITALS: BP 163/82; PULSE 92; RESP 21; TEMP 36.3; O2SAT 95
== END 2024-11-15 23:34 | disposition home or self-care (01) ==
PROVIDERS: Emergency Provider Emergency Medicine; PCP Family Medicine; Visit Provider Emergency Medicine
DX: R07.81 Pleurodynia (principal); J93.9 Pneumothorax, unspecified; G47.33 Obstructive sleep apnea (adult) (pediatric); Z99.89 Dependence on other enabling machines and devices; K21.9 Gastro-esophageal reflux disease without esophagitis; R06.00 Dyspnea, unspecified
CPT/HCPCS: 71046; 93005; 96374; 96375; 99285; A4216; J2405

== ENCOUNTER → 2025-01-02 | Outpatient (CLI) | payer OTHER, SELFPAY ==
--- NOTE | 2025-01-02 12:02 | RAD_ITS ---
PROCEDURE: CHEST PA AND LATERAL 01/02/2025 REASON FOR EXAM: SOB, INFLAMMATION (INFECTION) OF POSTPROCEDURAL BLEB, UNSPECIFIED TECHNIQUE: Frontal and lateral views of the chest. COMPARISON: 11/15/2024 FINDINGS: Suture line present in the left upper lung field with some associated minimal streaky opacity. Otherwise no pulmonary opacities identified. No pleural effusion or pneumothorax. The cardiomediastinal silhouette is unremarkable. No acute osseous or soft tissue abnormality. RAD/Chest PA and Lateral IMPRESSION: 1. No acute cardiopulmonary process. 2. Minimal streaky opacity in the left upper lung field with an associated sutu re line, possibly due to postoperative scarring. Reading Location: [facility]
== END | disposition home or self-care (01) ==
PROVIDERS: PCP Family Medicine
DX: J45.901 Unspecified asthma with (acute) exacerbation (principal); R06.02 Shortness of breath; H59.4 Inflammation (infection) of postprocedural bleb
CPT/HCPCS: 71046

== ENCOUNTER → 2025-01-13 | Outpatient (CLI) | payer OTHER, SELFPAY | END | disposition home or self-care (01) | LOC: SL 20:06 | PROVIDERS: PCP Family Medicine; Referring Provider Nurse Practitioner Family; Visit Provider Nurse Practitioner Family | DX: G47.33 Obstructive sleep apnea (adult) (pediatric) (principal) | CPT/HCPCS: 95811 ==

== ENCOUNTER → 2025-01-29 | Outpatient (CLI) | payer OTHER, SELFPAY | END | disposition home or self-care (01) | LOC: SL 08:28 | PROVIDERS: PCP Family Medicine; Referring Provider Nurse Practitioner Family; Visit Provider Nurse Practitioner Family | DX: Z46.89 Encounter for fitting and adjustment of other specified devices (principal) ==

== ENCOUNTER → 2025-02-05 | Outpatient (CLI) | payer OTHER, SELFPAY ==
[2025-02-05 12:35] VITALS: PULSE 108; PULSE 110; PULSE 112; PULSE 93; O2SAT 92; O2SAT 93; O2SAT 94; O2SAT 95; O2SAT 96
--- NOTE | 2025-02-06 09:19 | PCM.PSN.6M ---
PSN 6 Minute Walk Test 6 Minute Walk Test 6 Minute Walk Test: 6 Minute Walk Test PSN:6-Minute Walk Test Start: 02/05/25 12:35 Freq: Status: Active Protocol: [id number].[id number] Document 02/05/25 12:35 LIONELOJ (Rec: 02/05/25 12:38 LAINAANNITAON [email or web address]) 6 Minute Walk Test Date Performed 02/05/25 Time Performed 12:15 Height 5 ft 6 in Weight: 280 lb Weight in Pounds 280.[address]: Kay Brumfield Assistive device None used: Pre-test Oxygen Delivery Room Air Method Pulse Ox (%) 94 Pulse Rate (60-100 93 beats/min) Dyspnea Beatriz Scale ( 0.5 0-10) Exertion Beatriz Scale 6 (6-20) 1st minute Oxygen Delivery Room Air Method Pulse Ox (%) 93 Pulse Rate (60-100 108 H beats/min) 2nd minute Oxygen Delivery Room Air Method Pulse Ox (%) 93 Pulse Rate (60-100 110 H beats/min) 3rd minute Oxygen Delivery Room Air Method Pulse Ox (%) 92 Pulse Rate (60-100 112 H beats/min) 4th minute Oxygen Delivery Room Air Method Pulse Ox (%) 94 Pulse Rate (60-100 112 H beats/min) 5th minute Oxygen Delivery Room Air Method Pulse Ox (%) 95 Pulse Rate (60-100 112 H beats/min) 6th minute Oxygen Delivery Room Air Method Pulse Ox (%) 95 Pulse Rate (60-100 112 H beats/min) Dyspnea Beatriz Scale ( 3 0-10) Exertion Beatriz Scale 13 (6-20) Post-test Oxygen Delivery Room Air Method Pulse Ox (%) 96 Pulse Rate (60-100 93 beats/min) Full Laps Walked 20 Partial Lap, Number 0 of Tiles Walked Total Distance 1180 Walked (ft) Interpretation Interpretation: The patient ambulated 1180 feet over the course of 6 minutes beginning on room air without assistive devices. Pretesting oxygen saturation was noted to be 94% on room air. With ambulation, the angel oxygen saturation was 92%. There was no significant exertional oxygen desaturation. Recommendations Recommendations: There is no indication for the use of supplemental oxygen at this time.
== END | disposition home or self-care (01) ==
LOC: PSN 12:10
PROVIDERS: PCP Family Medicine; Referring Provider Nurse Practitioner Family; Visit Provider Nurse Practitioner Family
DX: R06.02 Shortness of breath (principal)
CPT/HCPCS: 94618

== ENCOUNTER 2025-02-25 08:53 | Day surgery (SDC) | payer OTHER, SELFPAY ==
--- NOTE | 2025-02-24 13:02 | PAT.ANESEVAL ---
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 When Was Last Pacemaker Check QUESTION #4 FULL TEXT: You/Your Family Experience fever (hyperthermia) with Anesthesia Last Oral Intake Last Oral intake: Last Oral Intake NPO since Meds taken in AM with sips of water? Meds patient instructed to take am of surgery PONV PONV - adult day care worker: PONV - adult day care worker Female No 02/24/25 11:42 HX of Motion Sickness No 02/24/25 11:42 HX of N/V After Surgery No 02/24/25 11:42 Non-Smoker Yes 02/24/25 11:42 Duration of Surgery greater No 02/24/25 11:42 than 60 minutes Number of Risk Factors 1 02/24/25 11:42 PONV Score Low Risk 02/24/25 11:42 Height & Weight Height & Weight: Anesthesia: Height & Weight Height 5 ft 6 in 11/15/24 21:16 Respiratory Assessment Respiratory Assessment - adult day care worker: Respiratory Tract Infection Hx - adult day care worker Hx Respiratory Tract Infection No 02/24/25 11:42 STOP Sleep Apnea STOP Sleep Apnea - adult day care worker: STOP Sleep Apnea - adult day care worker Hx Hypertension No 02/24/25 11:42 Hx Sleep Apnea Yes 02/24/25 11:42 CPAP Yes 02/24/25 11:42 BIPAP No 02/24/25 11:42 Do you snore loudly (louder than talking or can be heard Do you often feel tired/ fatigued/ sleepy during daytime? Has anyone observed you stop breathing during sleep? STOP Results Positive 02/24/25 11:42 QUESTION #5 FULL TEXT : Do you snore loudly (louder than talking or can be heard through closed doors)? 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 Specify any problems Hx of Preganancy in last 3 N/A 02/24/25 11:42 Months Nurse Filling Out Transfusion [facility] 02/24/25 11:42 & Questions: Date: 02/24/25 02/24/25 11:42 Time: 11:50 02/24/25 11:42 Patient unable to answer at this time (ie. confused, unrespo /Reproduction History /Reproductive History - adult day care worker: /Reproductive Hx- adult day care worker Hx Now No 02/24/25 11:42 Gestational Age (in weeks): EDC: Hx Hx Para Hx Section SAB No 02/24/25 11:42 PFSH Medical History Rash History of steroid therapy Arthritis History of diverticulitis Chronic cough Bleb, lung Dysphagia Lung bullae SONU on CPAP History of bronchitis GERD (gastroesophageal reflux disease) CPAP (continuous positive airway pressure) dependence Sleep apnea Migraines Cancer Fatty liver Heartburn Non-smoker History of stress test BMI greater than 40 Home Medications ?Medication ?Instructions ?Recorded ?Last Taken ?Type albuterol sulfate 90 mcg/actuation 1 puff inhalation Q6H PRN PRN Sob 01/18/15 Unknown History aerosol inhaler (Ventolin HFA) &/Or Wheezing albuterol sulfate 2.5 mg/0.5 mL 2.5 mg inhalation Q20M 10/28/21 Unknown History solution for nebulization omeprazole 20 mg capsule,delayed 40 mg PO DAILY 06/17/24 06/17/24 History release budesonide 3 mg 6 mg (2 x 3 mg) PO QDAY #60 ea 06/23/24 Unknown Rx capsule,delayed,extended release Allergy/AdvReac Type Severity Reaction Status Date / Time Penicillins Allergy Unknown Verified 02/24/25 11:41 Sulfa (Sulfonamide Allergy Unknown Verified 02/24/25 11:41 Antibiotics) Surgical History H/O removal of testicle History of tonsillectomy Social History (Updated 12/24/24 @ 12:50 by Toya Benavides) Smoking Status: Never smoker second hand exposure: Yes Audit: Pertinent Findings Pertinent Findings EKG Perinent findings: 11/15/2024. Normal sinus rhythm 98 bpm. Normal EKG. Stress test pertinent findings: 09/14/2022. Negative for ischemia. Recommendation Anesthesia Recommendation Anesthesia recommendation: OPTIMIZED for anesthesia
[2025-02-25] VITALS (7 sets, daily range): BP systolic 99–170; BP diastolic 57–81; PULSE 79–86; RESP 16; TEMP 36.3–36.4; O2SAT 96–100; BMI 46.6
[2025-02-25] MEDS: Lactated Ringers 1,000 ML 15 ML IV (09:33)
--- NOTE | 2025-02-25 09:36 | PRE.ANES_ITS ---
ASA Classification* ASA Classification ASA Classification: 3 Assessment & Plan Anesthesia* Anesthesia Assessment Anesthesia Assessment: Discussed sedation and/or anesthesia options, risks, benefits, and alternatives with patient/parents/legal guardian/POA. Questions invited. The patient/parents/legal guardian/POA seems to understand and agrees to proceed with anesthesia plan. Reviewed the physical assessment, medical history, allergy history and patient home medications list prior to surgery/procedure/anesthetic and documented any changes. Performed airway and anesthesia risk assessments. Anesthesia Type Anesthesia Type: MAC Anesthesia Focused Assessment* Temperature: 97.5 F Pulse Rate: 86 Blood Pressure: 170/81 Respiratory Rate: 16 Pulse Ox: 100 Airway Assessment Mouth opens: >3 cm Mallampati Score: II Focused Labs Anesthesia Preop lab: CBC WBC 10.8 K/mm3 (4.4-11.0) 11/03/24 22:20 11/03/24 RBC 5.25 M/mm3 (4.6-6.2) 11/03/24 22:20 11/03/24 Hgb 16.0 g/dL (13.0-16.5) 11/03/24 22:20 11/03/24 Hct 46.4 % (40-54) 11/03/24 22:20 11/03/24 Plt Count 279 K/mm3 (150-450) 11/03/24 22:20 11/03/24 CHEMISTRY Potassium 4.2 mmol/L (3.5-5.1) 11/03/24 22:20 11/03/24 Sodium 136 mmol/L (136-145) 11/03/24 22:20 11/03/24 Magnesium 2.5 mg/dL (1.6-2.6) 10/28/24 04:15 10/28/24 Phosphorus 3.8 mg/dL (2.5-4.9) 10/28/24 04:15 10/28/24 BUN 17 mg/dL (7-18) 11/03/24 22:20 11/03/24 Creatinine 1.20 mg/dL (0.70-1.30) 11/03/24 22:20 11/03/24 Glucose 147 mg/dL (74-106) H 11/03/24 22:20 11/03/24 POC Glucose 116 mg/dL (74-106) H 09/18/24 23:24 09/18/24 COAG Pre-Assessment Diagnosis/Proposed Procedure Planned Operative Procedure(s): EGD Anesthesia History 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 When Was Last Pacemaker Check QUESTION #4 FULL TEXT: You/Your Family Experience fever (hyperthermia) with Anesthesia Last Oral Intake Last Oral intake: Last Oral Intake NPO since 00:30 02/25/25 09:25 Meds taken in AM with sips of No 02/25/25 09:25 water? Meds patient instructed to take am of surgery PONV PONV - latent fingerprint examiner: PONV - latent fingerprint examiner Female No 02/24/25 11:42 HX of Motion Sickness No 02/24/25 11:42 HX of N/V After Surgery No 02/24/25 11:42 Non-Smoker Yes 02/24/25 11:42 Duration of Surgery greater No 02/24/25 11:42 than 60 minutes Number of Risk Factors 1 02/24/25 11:42 PONV Score Low Risk 02/24/25 11:42 Height & Weight Height & Weight: Anesthesia: Height & Weight Height 5 ft 6 in 02/25/25 09:25 Weight: 131 kg 02/25/25 09:25 Body Mass Index (BMI) 46.6 02/25/25 09:25 Respiratory Assessment Respiratory Assessment - latent fingerprint examiner: Respiratory Tract Infection Hx - latent fingerprint examiner Hx Respiratory Tract Infection No 02/24/25 11:42 STOP Sleep Apnea STOP Sleep Apnea - latent fingerprint examiner: STOP Sleep Apnea - latent fingerprint examiner Hx Hypertension No 02/24/25 11:42 Hx Sleep Apnea Yes 02/24/25 11:42 CPAP Yes 02/24/25 11:42 BIPAP No 02/24/25 11:42 Do you snore loudly (louder than talking or can be heard Do you often feel tired/ fatigued/ sleepy during daytime? Has anyone observed you stop breathing during sleep? STOP Results Positive 02/24/25 11:42 QUESTION #5 FULL TEXT : Do you snore loudly (louder than talking or can be heard through closed doors)? 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 Specify any problems Hx of Preganancy in last 3 N/A 02/24/25 11:42 Months Nurse Filling Out Transfusion [facility] 02/24/25 11:42 & Questions: Date: 02/24/25 02/24/25 11:42 Time: 11:50 02/24/25 11:42 Patient unable to answer at this time (ie. confused, unrespo /Reproduction History /Reproductive History - latent fingerprint examiner: /Reproductive Hx- latent fingerprint examiner Hx Now No 02/24/25 11:42 Gestational Age (in weeks): EDC: Hx Hx Para Hx Section SAB No 02/24/25 11:42 Active Medications Active Medications: Current Medications Generic Name Dose Route Start Last Admin Trade Name Freq PRN Reason Stop Dose Admin Lactated Ringer's 1,000 mls @ 15 mls/hr 02/25/25 09:00 02/25/25 09:33 IV 15 mls/hr .Q48H VLAD Administration PFSH Medical History Rash History of steroid therapy Arthritis History of diverticulitis Chronic cough Bleb, lung Dysphagia Lung bullae SONU on CPAP History of bronchitis GERD (gastroesophageal reflux disease) CPAP (continuous positive airway pressure) dependence Sleep apnea Migraines Cancer Fatty liver Heartburn Non-smoker History of stress test BMI greater than 40 Home Medications ?Medication ?Instructions ?Recorded ?Last Taken ?Type albuterol sulfate 90 mcg/actuation 1 puff inhalation Q 6H PRN PRN Sob 01/18/15 02/25/25 History aerosol inhaler (Ventolin HFA) &/Or Wheezing albuterol sulfate 2.5 mg/0.5 mL 2.5 mg inhalation Q20M 10/28/21 Unknown History solution for nebulization omeprazole 20 mg capsule,delayed 40 mg PO DAILY 06/17/24 History release budesonide 3 mg 6 mg (2 x 3 mg) PO QDAY #60 ea 06/23/24 Unknown Rx capsule,delayed,extended release Allergy/AdvReac Type Severity Reaction Status Date / Time Penicillins Allergy Unknown Verified 02/25/25 09:24 Sulfa (Sulfonamide Allergy Unknown Verified 02/25/25 09:24 Antibiotics) Surgical History H/O removal of testicle History of tonsillectomy Social History Smoking Status: Never smoker second hand exposure: Yes Review of Systems (Anesthesia) ROS Narrative System reviewed and no additional complaints, except as documented.
--- NOTE | 2025-02-25 10:00 | EGD_PTH ---
PATIENT: TREASURE LEE LOC: [facility] U#:[id number] AGE/SX: 54/M ROOM: RE02/25/[address]: Dr. Juaquin Ramos DO : 1970 BED: DIS: 02/25/2025 SPEC #: [id number] RECD: 02/25/25 12:00 STATUS: TORY STUART #: [id number] KEN: 02/25/25 10:[address]: Juaquin Ramos DEPT: SURGICAL PATHOLOGY RECD BY: Jeronimo Matt ENTERED: 02/25/25 13:16 SP TYPE: EGD BIOPSY OBIE DR: Dr. Sherif Spann, Tissues: A - Esophagus, NOS Procedures: Surgery Specimen Level IV HEADER OPERATION: EGD and dilatation and biopsy PRE-OP DIAGNOSIS: Dysphagia TISSUE SUBMITTED: A- Random esophagus biopsies MICROSCOPIC DIAGNOSIS A. Esophagus, random, biopsy: Squamous metaplasia with reactive changes. Negative for eosinophils. MICROSCOPIC DESCRIPTION Slides are reviewed. GROSS DESCRIPTION A. Received in formalin in a container labeled with the patient's name, date of , and random esophagus biopsy are 2 roblero-pink and wispy fragments of mucosal tissue measuring 0.4 x 0.3 x 0.1 cm and 0.5 x 0.3 x 0.2 cm. Submitted in toto in A1. B 02-25-2025 CPT:36698
--- NOTE | 2025-02-25 10:31 | HP.PCM_ITS ---
HPI - General General Date of Admission: 02/25/25 Date of Service: 02/25/25 Chief Complaint: dysphagia HPI Narrative TREASURE LEE, is a 54 M who presentsROBSUNNI LEE, is a 54 M who presents to the office today for f/u. [facility] established 05.19.24 after ED visit for BRBPR. Pt with hx of rectal bleeding in the past. Last EGD and colonoscopy 10 years ago with polyps but no other abnormalities. Hx of chronic GERD on PPI daily. Testicular cancer in 2012 s/p orchectomy. No chemo or radiation No hx of smoking or alcohol. CT abdomen/pelvis 05/09/24: Fatty infiltration of the liver. Calcified splenic granulomas. Sigmoid diverticulosis without evidence of diverticulitis. Nonobstructive right intrarenal calculus Liver elastography 05.29.24; 1. Liver stiffness measures 4.7 kPa compatible with F0-F1 (Normal to mild liver fibrosis) Metavir score. EGD 06.17.24; - Normal esophagus. - Three gastric polyps. Resected and retrieved. - Chronic duodenitis. Biopsied. Colonoscopy 06.17.24; - One 8 mm polyp at the hepatic flexure, removed with a cold snare. Resected and retrieved. - Two 3 mm polyps in the rectum, removed with a jumbo cold forceps. Resected and retrieved. - Diverticulosis in the recto-sigmoid colon, in the sigmoid colon and in the descending colon. - Congested mucosa in the entire examined colon. Biopsied. - Inflammation was found in the ileum secondary to ileitis. Biopsied. *started on Budesonide for Chronic inflammation OV 3 Pt underwent Blebectomy in Nov 2023. While in the ICU he had swallowing test and LEVI MAKER recommended repeat EGD. He does notice come issues with swallowing. He feels food stuck in his esophagus every other day but has not noticed any triggering foods. He will drink water to get the food to go down. He does not ever regurgitate his food. He denies abd pain, n/v, heartburn constipation, blood in his stool or diarrhea. [facility] Medical History Rash History of steroid therapy Arthritis History of diverticulitis Chronic cough Bleb, lung Dysphagia Lung bullae SONU on CPAP History of bronchitis GERD (gastroesophageal reflux disease) CPAP (continuous positive airway pressure) dependence Sleep apnea Migraines Cancer Fatty liver Heartburn Non-smoker History of stress test BMI greater than 40 Home Medications ?Medication ?Instructions ?Recorded ?Last Taken ?Type albuterol sulfate 90 mcg/actuation 1 puff inhalation Q 6H PRN PRN Sob 01/18/15 02/25/25 History aerosol inhaler (Ventolin HFA) &/Or Wheezing albuterol sulfate 2.5 mg/0.5 mL 2.5 mg inhalation Q20M 10/28/21 Unknown History solution for nebulization omeprazole 20 mg capsule,delayed 40 mg PO DAILY 06/17/24 History release budesonide 3 mg 6 mg (2 x 3 mg) PO QDAY #60 ea 06/23/24 Unknown Rx capsule,delayed,extended release Allergy/AdvReac Type Severity Reaction Status Date / Time Penicillins Allergy Unknown Verified 02/25/25 09:24 Sulfa (Sulfonamide Allergy Unknown Verified 02/25/25 09:24 Antibiotics) Surgical History H/O removal of testicle History of tonsillectomy Social History Smoking Status: Never smoker second hand exposure: Yes ROS Constitutional Constitutional: Denies fatigue, fever(s), poor appetite, weight gain or weight loss Gastrointestinal Gastrointestinal: Denies belching, bloating, change in bowel habits, change in stool character, chewing difficulty, coffee ground emesis, constipation, cramping, diarrhea, dyspepsia, dysphagia, early satiety, excessive flatus, fecal incontinence, heartburn, hematemesis, hematochezia, hemorrhoids, loose stools, melena, nausea, odynophagia, rectal bleeding, tenesmus, vomiting or weight changes Vital Signs Vital Signs Vital Signs: 02/25/25 09:25 02/25/25 09:25 02/25/25 09:36 Temperature 97.5 F L 97.5 F L Temperature Source Temporal Pulse Rate 86 86 Respiratory Rate 16 16 Respiratory Pattern Normal Blood Pressure 170/81 H 170/81 H Blood Pressure Mean 110 Blood Pressure Source Monitor Blood Pressure Position Sitting Blood Pressure Location Right Forearm Pulse Ox 100 100 Oxygen Delivery Method Room Air Weight Weight: 288 lb 12.889 oz Body Mass Index (BMI) 46.6 Assessment & Plan Assessment/Plan (1) Dysphagia: PLAN: Assessment and Plan Assessment and Plan (1) Dysphagia: Status: Acute Plan: This is a 54 yo male pt here today for f/u. Pt established with [facility] for BRBPR. He is no longer having any rectal bleeding. He underwent colonoscopy and EGD in Jun 2024. Colonoscopy showing inflammation at the TI and he was started on Budesonide. He continues taking 6 mg daily. I will decrease this to 3 mg and then eventually taper off as he does not have any lower GI sypmtoms. At his last appointment, I ordered liver elastography due to CT showing fatty liver. His elastography showed normal liver. Pt has been having recurrent pneumothorax from a bleb. He underwent blebectomy in Nov 2023. During one of his admissions, he had an esophagram which showed some retention of pudding and cookie in the esophagus. LEVI MAKER recommended repeat scope. he does endorses issues with swallowing every other day. He will undergo repeat EGD with dilation if indicated. He will continue omeprazole 40 mg daily and consider increase pending EGD results. Pt agreeable to this plan. -EGD with dilation if indicated -Elastography; normal -Consider increase in PPI -Decrease Budesonide to 3 mg daily -f/u after procedure
--- NOTE | 2025-02-25 10:58 | PCM.POST.ANE ---
Anesthesia: Postop Eval I Current Vital Signs Temperature: 97.3 F Pulse Rate: 79 Blood Pressure: 99/57 Respiratory Rate: 16 Pulse Ox: 97 Oxygen Delivery Method: Room Air Assessment Airway patent: Yes Spontaneous unlabored respirations: Yes Mental status: Awake and Calm nausea: No Vomiting: No Anesthesia Complication: No Fluid Hydration Crystalloid volume administer (ml): 300 Total IV fluid infused: 300 Progress Note Anesthesia document: Postop Eval 1 completed: Yes
--- NOTE | 2025-02-25 10:59 | OP.EGD_ITS ---
Patient Name: Ricki Ryder Procedure Date: 02/25/2025 10:36 AM Date of : 1970 Age: 54 Procedure: Upper GI endoscopy Indications: Dysphagia Providers: Juaquin Ramos DO Referring MD: Sherif Spann Medicines: Monitored Anesthesia Care Patient Profile: This is a 54 year old male. Refer to note in patient chart for documentation of history and physical. Patient has symptoms. Complications: No immediate complications. Estimated blood loss: None. Procedure: Pre-Anesthesia Assessment: - Prior to the procedure, a History and Physical was performed, and patient medications and allergies were reviewed. The patient is competent. The risks and benefits of the procedure and the sedation options and risks were discussed with the patient. All questions were answered and informed consent was obtained. Patient identification and proposed procedure were verified by the physician in the pre-procedure area. Mental Status Examination: alert and oriented. Airway Examination: normal oropharyngeal airway and neck mobility. Respiratory Examination: clear to auscultation. CV Examination: normal. Prophylactic Antibiotics: The patient does not require prophylactic antibiotics. Prior Anticoagulants: The patient has taken no anticoagulant or antiplatelet agents except for NSAID medication. ASA Grade Assessment: III - A patient with severe systemic disease. After reviewing the risks and benefits, the patient was deemed in satisfactory condition to undergo the procedure. The anesthesia plan was to use monitored anesthesia care (MAC). Immediately prior to administration of medications, the patient was re-assessed for adequacy to receive sedatives. The heart rate, respiratory rate, oxygen saturations, blood pressure, adequacy of pulmonary ventilation, and response to care were monitored throughout the procedure. The physical status of the patient was re-assessed after the procedure. After obtaining informed consent, the endoscope was passed under direct vision. Throughout the procedure, the patient's blood pressure, pulse, and oxygen saturations were monitored continuously. The Endoscope was introduced through the mouth, and advanced to the second part of duodenum. The upper GI endoscopy was accomplished without difficulty. The patient tolerated the procedure well. Scope In: 10:44:07 AM Scope Out: 10:48:20 AM Total Procedure Duration Time 0 hours 4 minutes 13 seconds Findings: One benign-appearing, intrinsic moderate stenosis was found 37 to 42 cm from the incisors. This stenosis measured 5 mm (inner diameter) x 8 cm (in length). The stenosis was traversed. A TTS dilator was passed through the scope. Dilation with a 6-7-8 mm balloon dilator was performed to 10 mm. Multiple 5 mm hyperplastic polyps with no bleeding and no stigmata of recent bleeding were found in the gastric fundus. No gross lesions were noted in the ampulla. Impression: - Benign-appearing esophageal stenosis. Dilated. - Multiple gastric polyps. - No gross lesions in the ampulla. - No specimens collected. Recommendation: - Resume previous diet. - Continue present medications. - Await pathology results. Procedure Code(s): --- Professional --- 22723, Esophagogastroduodenoscopy, flexible, transoral; with transendoscopic balloon dilation of esophagus (less than 30 mm diameter) CPT copyright 2021 [employer]. All rights reserved. The codes documented in this report are preliminary and upon line assembler aircraft review may be revised to meet current compliance requirements. Juaquin Ramos DO 02/25/2025 10:58:19 AM This report has been signed electronically. Number of Addenda: 0 Note Initiated On: 02/25/2025 10:36 AM
--- NOTE | 2025-02-25 10:59 | OP.CCLET_ITS ---
02/25/2025 Sherif Spann [address] [facility] [place] [address] Re : Upper GI endoscopy procedure for Ricki Ryder Dear Dr. Spann This procedure was performed on Tuesday, February 25, 2025. My impressions and recommendations are as follows: Impressions : - Benign-appearing esophageal stenosis. Dilated. - Multiple gastric polyps. - No gross lesions in the ampulla. - No specimens collected. Recommendations : - Resume previous diet. - Continue present medications. - Await pathology results. My findings are described in the full procedure note, which is enclosed. If I can be of further assistance, please feel free to contact me at . Sincerely, Juaquin Ramos, 02/25/2025 10:58:19 AM This report has been signed electronically.
--- NOTE | 2025-02-25 11:39 | PCM.POSTANE2 ---
Anesthesia Postop Eval I Sum Postop Eval Completion status Anesthesia document: Postop Eval 1 completed: Yes Anesthesia Postop Eval I Summary Anesthesia Postop Eval I Summary: Anesthesia Postop Eval I: Assessment Summary Airway patent Yes 02/25/25 10:59 [email or web address] Spontaneous unlabored Yes 02/25/25 10:59 [email or web address] respirations Mental status Awake,Calm 02/25/25 10:59 [email or web address] nausea No 02/25/25 10:59 [email or web address] Vomiting No 02/25/25 10:59 [email or web address] Anesthesia Postop Eval I: Fluid Summary Crystalloid volume administer 300 02/25/25 10:59 [email or web address] (ml) Colloids volume administered ( ml) Blood Product volume administered (ml) Total IV fluid infused 300 02/25/25 10:59 [email or web address] Anesthesia Postop Eval I: Summary Notes Anesthesia Complication No 02/25/25 10:59 [email or web address] Anesthesia Complication Comment: Post-operative progress note Anesthesia: Postop Eval II Evaluation Mental status: Awake Pain Level: 0 nausea: No Vomiting: No
== END 2025-02-25 11:37 | disposition home or self-care (01) ==
LOC: EN 08:53 → AC 08:54
PROVIDERS: PCP Family Medicine; Referring Provider Family Medicine; Visit Provider Internal Medicine Gastroenterology
PROC: 0DJ08ZZ Inspection of Upper Intestinal Tract, Via Natural or Artificial Opening Endoscopic (ICD-10-PCS; CPT 43235; principal; 2025-02-25 09:55)
DX: R13.10 Dysphagia, unspecified (principal); K31.7 Polyp of stomach and duodenum; K21.9 Gastro-esophageal reflux disease without esophagitis; K22.2 Esophageal obstruction; Z79.51 Long term (current) use of inhaled steroids; Z87.19 Personal history of other diseases of the digestive system; G47.33 Obstructive sleep apnea (adult) (pediatric); Z99.89 Dependence on other enabling machines and devices
CPT/HCPCS: 43249; 88305; C1769; J2405

== ENCOUNTER → 2025-06-23 | Outpatient (CLI) | payer OTHER, SELFPAY | END | disposition home or self-care (01) | LOC: PSN 09:14 | PROVIDERS: PCP Family Medicine; Referring Provider Nurse Practitioner Family; Visit Provider Nurse Practitioner Family | DX: R06.02 Shortness of breath (principal) | CPT/HCPCS: 94060; 94726; 94729 ==

== ENCOUNTER → 2025-07-08 | Outpatient (CLI) | payer OTHER, SELFPAY ==
--- NOTE | 2025-07-08 09:02 | ECHOCS_ITS ---
Reason For Study Reason For Study: SOB, CP Procedure This was a 2D Doppler, Color Flow transthoracic echocardiogram. The study was technically difficult. Contrast injection was performed. Exam performed in department. Left Ventricle Normal LV size. Left ventricular systolic function is normal. The left ventricular ejection fraction is 60 %. Stage 1 diastolic dysfunction. No regional wall motion abnormalities noted. Right Ventricle Normal RV size. Normal systolic function. Atria Normal left atrium. Normal right atrium. Mitral Valve Normal mitral valve. Tricuspid Valve Normal tricuspid valve. Aortic Valve The aortic valve is not well visualized. Great Vessels Normal aortic root. The pulmonary artery is normal size. Inferior vena cava collapse with respiration. Pericardium/Pleural No pericardial effusion. Medication 22 gauge I.V. with prn adaptor inserted into left arm. Diluted definity 1.5ml given slow IV push to enhance endocardial definition. MMode/2D Measurements & Calculations LVIDd: 5.1 cm IVSd: 1.0 cm Ao root diam: 3.0 cm LVIDs: 3.7 cm LVPWd: 0.99 cm FS: 28.3 % LAV(MOD-sp4): 45.7 ml LVAd ap4: 39.9 cm2 SV(MOD-sp4): 90.7 ml LVLd ap4: 8.7 cm SI(MOD-sp4): 39.6 ml/m2 EDV(MOD-sp4): 149.7 ml EDV(sp4-el): 155.7 ml LVAs ap4: 24.1 cm2 LVLs ap4: 8.0 cm ESV(MOD-sp4): 59.0 ml ESV(sp4-el): 61.4 ml EF(MOD-sp4): 60.6 % EF(sp4-el): 60.5 % SV(sp4-el): 94.3 ml LA A4 area: 17.9 cm2 LA dimension(2D): 4.4 cm RA A4 area: 14.6 cm2 Time Measurements MV dec time: 0.24 sec Doppler Measurements & Calculations MV E max juan luis: 56.1 cm/sec Lat Peak E' Juan Luis: 10.4 cm/sec Med Peak E' Juan Luis: 8.1 cm/sec MV A max juan luis: 84.5 cm/sec E/E' lat: 5.4 E/E' med: 6.9 MV E/A: 0.66 MV V2 max: 107.7 cm/sec MV P1/2t max juan luis: 102.9 cm/sec Ao V2 max: 105.0 cm/sec MV max P.7 mmHg MV P1/2t: 83.3 msec Ao max P.4 mmHg MV V2 mean: 68.1 cm/sec MV mean P.2 mmHg MV dec slope: 361.7 cm/sec2 MV V2 VTI: 22.9 cm MVA(P1/2t): 2.6 cm2 LV V1 max: 84.5 cm/sec LV V1 max P.9 mmHg ECHO/Echo Complete W/ Contrast Interpretation Summary Normal LV size. Left ventricular systolic function is normal. The left ventricular ejection fraction is 60 %. Stage 1 diastolic dysfunction. Contrast injection was performed. Ordering Physician: Kay Brumfield Referring Physician: Kay Brumfield Performed By: Ashvin Magaña RCS
== END | disposition home or self-care (01) ==
LOC: CVS 08:59
PROVIDERS: PCP Family Medicine; Referring Provider Nurse Practitioner Family; Visit Provider Nurse Practitioner Family
DX: R06.02 Shortness of breath (principal)
CPT/HCPCS: 93306; Q9957; A4216; C8929